=== PATIENT | male | born 1950 | race Caucasian/White ===

== ENCOUNTER 2024-09-14 16:42 | Inpatient (IN) ==
--- NOTE | 2024-09-14 17:00 | Emergency Department Note ---
Impression & Plan GI bleed, SOB (shortness of breath), Pneumonia, COPD exacerbation, Anemia, Vomiting, Rhinovirus infection ED Provider Note NAME: LILIANA PEREZ AGE: 74 SEX: M : 1950 ARRIVES VIA: Ambulance INFORMANT: [Patient][ems] ED PROVIDER(S): [London Rosenberg MD] CHIEF COMPLAINT: Illness HISTORY OF PRESENT ILLNESS: The patient is a 74-year-old male with COPD. The patient states that he has been coughing for about a week. Today, he vomited and had some chills. He states he has not recorded a fever over the last week. He did have some epigastric abdominal pain today prior to vomiting. He presents by ambulance. He received Zofran en route which did help the nausea. He states the epigastric abdominal pain is not present. Patient does have inhalers that he uses for COPD, he does not use oxygen. He states that he has not really noticed shortness of breath, even with exertion. He states his is ill as well and he thinks they have shared the same illness. The patient does have a history of cardiac bypass surgery. He appears to take Eliquis twice daily. PMHx/PSHx/Social Hx: See Below PHYSICAL EXAM: GENERAL: Patient is in no acute distress. He does have some dark dried vomitus around his mouth. HEENT: No acute trauma, normocephalic atraumatic, mucous membranes moist, no nasal congestion. NECK: No stridor, no adenopathy, no meningismus, trachea is midline. LUNGS: Clear to auscultation bilaterally, no wheeze, no rhonchi, breath sounds equal. Breath sounds are diminished bilaterally HEART: Without murmurs gallops or rubs, regular rate and rhythm. Heart tones somewhat distant. ABDOMEN: Soft, nontender, no peritonitis. EXTREMITIES: No cyanosis, full range of motion of all the joints without pain or difficulty. No pedal edema. NEUROLOGIC: Oriented x 3, no acute motor or sensory deficits, no focal weakness. SKIN: No jaundice, no diaphoresis. Rectal: Dark brown stool, heme positive. DIFFERENTIAL DIAGNOSIS: Viral illness, bronchitis, pneumonia, CHF, cardiac ischemia, electrolyte imbalance, bacteremia, GI bleeding, among others. EMERGENCY DEPARTMENT PROCEDURES: MEDICAL DECISION MAKING: There is a moderate leukocytosis, this certainly could be consistent with infection. The patient was anemic. The patient's hemoglobin had dropped 2 or 3 points. I did perform a rectal exam, stool was dark brown and heme positive. There was a normal platelet count. No concerning coagulopathy. VBG did not show any acidosis or CO2 retention. Patient's BUN was elevated consistent with potential upper GI bleeding. There was no renal failure. Lactic acid level was not elevated making severe sepsis less likely. There was no concerning liver enzyme elevation. ECG showed a sinus rhythm, no obvious ischemia. Cardiac enzyme testing x 1 was not consistent with acute cardiac injury. Urinalysis did not show infection. Respiratory bio fire was positive for rhinovirus. Chest x- ray does show a patchy lower lobe pneumonia bilaterally. On exam, patient was borderline hypoxic. He did not appear in acute distress. He was febrile. The patient was given 1 L of IV saline for hydration. He received IV Protonix and IV Solu-Medrol. He was given IV Pepcid, IV cefepime and a DuoNeb. He received IV Tylenol. The patient has rhinovirus and pneumonia which has flare of COPD. Additionally, he is suffering from what I believed to be an upper GI bleed. Admission is clearly warranted. I did speak with GI, the patient is not in need of an emergent GI procedure. I did speak with the patient and family, I spoke with the pillowcase cleaner. The on- call hospitalist was consulted. Prior/Outside records/notes reviewed: Today's EMS notes describing his presentation and transport to this hospital. ECG per my interpretation: Indication was vomiting. The ECG shows a sinus rhythm with a first-degree AV block. PVCs are seen. No acute ST elevation. The rate is 94. QTc is 457. 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 Continuous Cardiac Monitoring per my interpretation: An order was placed for continuous cardiac monitoring. The monitor shows a rate of 94 with sinus rhythm with a first-degree block and PVCs. Imaging/x-ray results per my interpretation: Chest x-ray shows a patchy bilateral lower lung pneumonia. Chronic Medical/Social conditions affecting care: Advanced age, history of COPD. Care/Management discussed with: Case management, the on-call hospitalist. On- call GI-Dr. Robbins Level of care consideration(s): After review of the information above and other included data: --I believe the patient requires escalation of care to admission Critical Care Note: I have personally spent 44 minutes of critical care time in the direct management of this patient. This includes bedside care, interpretation of diagnostic studies, and testing, discussion with consultants, patient, and family members, and other required patient management activities. This 44 minutes is in excess of all separately billable procedures. DISPOSITION: Admission Past Med/Surg History Problem List Sepsis Enterovirus infection History of atrial flutter Rhinovirus infection (Acute) CAD (coronary artery disease), [place] coronary artery stent x1 (2016) Upper GI bleed Vomiting (Acute) Anemia (Acute) COPD exacerbation (Acute) Pneumonia (Acute) SOB (shortness of breath) (Acute) GI bleed (Acute) Right lower lobe pneumonia Wears hearing aid in both ears Phonak L50R disp 02/2023 Does not have health insurance COPD (chronic obstructive pulmonary disease) "Controlled" > follows with [facility] in [place] ([phone]) 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 SNHL, :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 History of tobacco use disorder COPD, group B, by GOLD 2017 classification GI bleed 2019 GERD (gastroesophageal reflux disease) Tinnitus of both ears Periorbital ecchymosis of left eye Encounter for pre-operative examination Cholesteatoma of attic of left ear Perforation of left tympanic membrane Mixed hearing loss, bilateral Medical History Aortic valve disease s/p AVR- 2018 (echo 10/28/20 with normal appearing bioprosthetic aortic valve and normal transvalvular flow velocities and no AI) History of SC (myocardial infarction) 2016 History of kidney stones CKD (chronic kidney disease) High cholesterol Hypertension Surgical History History of mastoidectomy History of AAA (abdominal aortic aneurysm) repair History of esophagogastroduodenoscopy (EGD) History of colonoscopy History of heart artery stent History of cardiac cath S/P AVR (aortic valve replacement) History of cataract extraction History of cholecystectomy History of oral surgery History of appendectomy H/O thoracic aortic aneurysm repair Family History Mother Stroke Father Bone cancer Other Emphysema lung Lung disease No family history of adverse response to anesthesia No family history of bleeding disorder Social History Smoking Status: Never smoker Tobacco Type: Cigarettes Age Started Using Tobacco: 50; Age Quit Using Tobacco: 65; packs per day: 1; Second Hand Exposure: No; Do You Dip or Chew Tobacco: No; Hx Alcohol Use: No Hx Substance Use: No Preferred Language: Kyrgyz Communication Ability: Effective Intake Man Required: No Beliefs That Will Affect Care: Religion Religion Beliefs: [facility] marital status: Current Living Situation: Family Current Living Situation Comment: With Brother//Family current occupational status: employed current occupation: woodworking Feels Safe at Home: Yes Assistive Devices: Denture - Upper, Denture - Lower and Glasses Allergies Allergies Allergy/AdvReac Type Severity Reaction Status Date / Time No Known Drug Allergies Allergy Verified 09/14/24 19:05 Home Meds Home Medications Medication Instructions Recorded Confirmed albuterol sulfate 90 mcg/actuation 2 puff inhalation BID 02/04/20 09/14/24 aerosol inhaler metoprolol succinate 25 mg 25 mg PO HS 02/04/20 09/14/24 tablet,extended release 24 hr aspirin 81 mg chewable tablet 81 mg PO QAM 05/05/21 09/14/24 ([place]ley Chewable Low Dose Aspirin) lisinopril 10 mg tablet 10 mg PO QAM 05/05/21 09/14/24 rosuvastatin 40 mg tablet 40 mg PO HS 04/27/23 09/14/24 sertraline 50 mg tablet 50 mg PO DAILY 04/27/23 09/14/24 apixaban 5 mg tablet (Eliquis) 5 mg PO BID 05/17/24 09/14/24 Previous Rx's Medication Instructions Recorded fluticasone fur. 100 mcg-umeclid 1 inh inhalation DAILY #180 ea 08/23/24 62.5 mcg-vilant 25 mcg inhalat.powder (Trelegy Ellipta) Results & Data (ED) Vital Signs Vital Signs - 24 hr 09/14/24 16:51 09/14/24 17:00 09/14/24 17:01 Temperature 38.3 C H 38.3 C H Temperature Source Oral Oral Pulse Rate 97 H 96 H Pulse Rate [Finger] 97 H Pulse Rate from SpO2 Sensor Pulse Rhythm [Finger] Respiratory Rate 18 25 H 18 Respiratory Effort / Characteristics Non-Labored Spontaneous Non-Labored Spontaneous Respiratory Depth Normal Normal Blood Pressure 150/83 H Blood Pressure [Right Arm] 150/83 H Blood Pressure Mean 105 Blood Pressure Mean [Right Arm] 105 Pulse Oximetry 91 92 91 Oxygen Delivery Method Room Air Room Air Oxygen Flow Rate Sepsis Recent Fever Within 48 Hours Yes Sepsis New/Unexplained Change in Mental Status No Sepsis Action Taken by Nursing No Action Required 09/14/24 17:01 09/14/24 17:04 09/14/24 17:09 Temperature 38.3 C H Temperature Source Oral Pulse Rate 97 H 94 H Pulse Rate [Finger] 97 H Pulse Rate from SpO2 Sensor Pulse Rhythm [Finger] Respiratory Rate 18 18 Respiratory Effort / Characteristics Non-Labored Spontaneous Respiratory Depth Normal Blood Pressure Blood Pressure [Right Arm] 150/83 H Blood Pressure Mean Blood Pressure Mean [Right Arm] 105 Pulse Oximetry 91 92 Oxygen Delivery Method Room Air Nasal Cannula Oxygen Flow Rate 2 Sepsis Recent Fever Within 48 Hours Sepsis New/Unexplained Change in Mental Status Sepsis Action Taken by Nursing 09/14/24 17:15 09/14/24 17:15 09/14/24 17:39 Temperature Temperature Source Pulse Rate 91 H 104 H Pulse Rate [Finger] 90 Pulse Rate from SpO2 Sensor 90 104 H Pulse Rhythm [Finger] Respiratory Rate 18 22 19 Respiratory Effort / Characteristics Non-Labored Spontaneous Respiratory Depth Normal Blood Pressure 128/68 Blood Pressure [Right Arm] 128/68 Blood Pressure Mean 88 Blood Pressure Mean [Right Arm] 88 Pulse Oximetry 94 94 96 Oxygen Delivery Method Nasal Cannula Oxygen Flow Rate 2 Sepsis Recent Fever Within 48 Hours Sepsis New/Unexplained Change in Mental Status Sepsis Action Taken by Nursing 09/14/24 17:48 09/14/24 18:00 09/14/24 19:00 Temperature Temperature Source Pulse Rate 98 H 98 H Pulse Rate [Finger] 99 H Pulse Rate from SpO2 Sensor 98 H 97 H Pulse Rhythm [Finger] Regular Respiratory Rate 18 21 18 Respiratory Effort / Characteristics Non-Labored Spontaneous Respiratory Depth Normal Blood Pressure 106/62 Blood Pressure [Right Arm] 117/60 Blood Pressure Mean 76 Blood Pressure Mean [Right Arm] 79 Pulse Oximetry 92 93 94 Oxygen Delivery Method Room Air Oxygen Flow Rate Sepsis Recent Fever Within 48 Hours Sepsis New/Unexplained Change in Mental Status Sepsis Action Taken by Nursing 09/14/24 20:03 09/14/24 20:19 Temperature 37.2 C Temperature Source Oral Pulse Rate Pulse Rate [Finger] 85 Pulse Rate from SpO2 Sensor Pulse Rhythm [Finger] Respiratory Rate 18 Respiratory Effort / Characteristics Respiratory Depth Blood Pressure Blood Pressure [Right Arm] 123/54 L Blood Pressure Mean Blood Pressure Mean [Right Arm] 77 Pulse Oximetry 95 Oxygen Delivery Method Room Air Oxygen Flow Rate Sepsis Recent Fever Within 48 Hours Sepsis New/Unexplained Change in Mental Status Sepsis Action Taken by [facility] Medications Current Medication List: was personally reviewed by me Laboratory Data Attestation: I reviewed the patient's lab results. 09/14/24 22:58 09/14/24 17:04 Lab Results 09/14/24 09/14/24 09/14/24 Range/Units 17:04 17:40 18:27 WBC 17.05 H (4.8-10.8) K/ul RBC 3.41 L (4.70-6.10) M/uL Hgb 10.4 L (14.0-18.0) g/dl Hct 30.7 L (42.0-52.0) % MCV 90.0 (80.0-100.0) fL MCH 30.5 (25.0-34.0) pg MCHC 33.9 (32.0-36.0) g/dL RDW Std Deviation 44.6 (36.4-46.3) fL RDW Coeff of Tristen 13.8 (11.5-14.5) % Plt Count 297 (130-400) K/uL MPV 10.1 (9.4-12.4) fL Immature Gran % (Auto) 0.6 % Neut % (Auto) 90.8 % Lymph % (Auto) 2.8 % [place] % (Auto) 5.2 % Eos % (Auto) 0.4 % Baso % (Auto) 0.2 % Neut # (Auto) 15.50 H (1.40-6.50) K/uL Lymph # (Auto) 0.47 L (1.20-3.40) K/uL [place] # (Auto) 0.88 H (0.11-0.59) K/uL Eos # (Auto) 0.07 (0.00-0.50) K/uL Baso # (Auto) 0.03 (0.00-0.20) K/uL Immature Gran # (Auto) 0.10 (0.01-0.20) K/uL PT 11.4 (9.0-12.0) Seconds INR 1.1 (0.9-1.1) APTT 33 H (21-31) Seconds PTT Ratio 1.2 VBG pH 7.40 (7.36-7.41) VBG pCO2 39 (38-50) mmHg VBG pO2 54 mmHg VBG HCO3 24 mmol/L VBG O2 Saturation 87.5 % VBG Base Excess -0.5 mEq/L Sodium 137 (136-145) mmol/L Potassium 4.4 (3.5-5.1) mmol/L Chloride 103 (98-107) mmol/L Carbon Dioxide 25 (21-32) mmol/L Anion Gap 9 (3-11) BUN 56 H (6-23) mg/dl Creatinine 1.39 (0.6-1.4) mg/dl Est Cr Clr Drug Dosing 49.6 ml/min eGFR 52.54 BUN/Creatinine Ratio 40.3 H (10-20) Glucose 131 H (70-99(Fasting)) mg/dl Lactate 1.0 (0.4-2.0) mmol/L Calcium 9.7 (8.6-10.3) mg/dl Magnesium 1.9 (1.7-2.4) mg/dl Total Bilirubin 0.8 (0.2-1.0) mg/dl Direct Bilirubin 0.1 (0-0.2) mg/dl AST 17 (13-39) U/L ALT 16 (7-52) U/L Alkaline Phosphatase 45 (34-104) U/L Troponin I High Sens 15.3 (0-20) pg/ml Total Protein 7.3 (6.0-8.3) gm/dl Albumin 4.2 (3.4-5.0) gm/dl Procalcitonin 0.37 (0-0.5) ng/ml Urine Color Urine Appearance (Clear) Urine pH (4.5-7.5) Ur Specific [place] (1.000-1.030) Urine Protein (Negative) Urine Glucose (UA) (Negative) Urine Ketones (Negative) Urine Blood (Negative) Urine Nitrite (Negative) Urine Bilirubin (Negative) Urine Urobilinogen (Negative) Ur Leukocyte Esterase (Negative) Urine WBC (Auto) (0-5) /hpf Urine RBC (Auto) (0-2) /hpf U Hyaline Cast (Auto) (0-2) /lpf U Epithel Cells (Auto) (0-2) /hpf Urine Bacteria (Auto) (None Seen) Nasal Screen MRSA (PCR) (Negative) Adenovirus (PCR) Not Detected (NotDetected) B. pertussis DNA (PCR) Not Detected (NotDetected) B.parapertussis DNA PCR Not Detected (NotDetected) C. pneumoniae DNA (PCR) Not Detected (NotDetected) Coronavirus OC43 (PCR) Not Detected (NotDetected) Coronavirus HKU1 (PCR) Not Detected (NotDetected) Coronavirus 229E (PCR) Not Detected (NotDetected) SARS-CoV-2 (PCR) Not Detected (NotDetected) Coronavirus NL63 (PCR) Not Detected (NotDetected) Human Metapneumovir PCR Not Detected (NotDetected) Influenza Type A (PCR) Not Detected (NotDetected) Influenza Type B (PCR) Not Detected (NotDetected) M. pneumoniae (PCR) Not Detected (NotDetected) Parainfluenza 1 (PCR) Not Detected (NotDetected) Parainfluenza 2 (PCR) Not Detected (NotDetected) Parainfluenza 3 (PCR) Not Detected (NotDetected) Parainfluenza 4 (PCR) Not Detected (NotDetected) RSV (PCR) Not Detected (NotDetected) Entero/Rhino (PCR) DETECTED A (NotDetected) Blood Type A Positive Blood Type Recheck Antibody Screen NEGATIVE Crossmatch See Detail 09/14/24 09/14/24 09/14/24 Range/Units 19:10 19:20 20:40 WBC (4.8-10.8) K/ul RBC (4.70-6.10) M/uL Hgb 10.1 L (14.0-18.0) g/dl Hct 29.5 L (42.0-52.0) % MCV (80.0-100.0) fL MCH (25.0-34.0) pg MCHC (32.0-36.0) g/dL RDW Std Deviation (36.4-46.3) fL RDW Coeff of Tristen (11.5-14.5) % Plt Count (130-400) K/uL MPV (9.4-12.4) fL Immature Gran % (Auto) % Neut % (Auto) % Lymph % (Auto) % [place] % (Auto) % Eos % (Auto) % Baso % (Auto) % Neut # (Auto) (1.40-6.50) K/uL Lymph # (Auto) (1.20-3.40) K/uL [place] # (Auto) (0.11-0.59) K/uL Eos # (Auto) (0.00-0.50) K/uL Baso # (Auto) (0.00-0.20) K/uL Immature Gran # (Auto) (0.01-0.20) K/uL PT (9.0-12.0) Seconds INR (0.9-1.1) APTT (21-31) Seconds PTT Ratio VBG pH (7.36-7.41) VBG pCO2 (38-50) mmHg VBG pO2 mmHg VBG HCO3 mmol/L VBG O2 Saturation % VBG Base Excess mEq/L Sodium (136-145) mmol/L Potassium (3.5-5.1) mmol/L Chloride (98-107) mmol/L Carbon Dioxide (21-32) mmol/L Anion Gap (3-11) BUN (6-23) mg/dl Creatinine (0.6-1.4) mg/dl Est Cr Clr Drug Dosing ml/min eGFR BUN/Creatinine Ratio (10-20) Glucose (70-99(Fasting)) mg/dl Lactate (0.4-2.0) mmol/L Calcium (8.6-10.3) mg/dl Magnesium (1.7-2.4) mg/dl Total Bilirubin (0.2-1.0) mg/dl Direct Bilirubin (0-0.2) mg/dl AST (13-39) U/L ALT (7-52) U/L Alkaline Phosphatase (34-104) U/L Troponin I High Sens (0-20) pg/ml Total Protein (6.0-8.3) gm/dl Albumin (3.4-5.0) gm/dl Procalcitonin (0-0.5) ng/ml Urine Color Yellow Urine Appearance Clear (Clear) Urine pH 5.5 (4.5-7.5) Ur Specific [place] 1.031 H (1.000-1.030) Urine Protein 2+ H (Negative) Urine Glucose (UA) Negative (Negative) Urine Ketones Negative (Negative) Urine Blood Trace H (Negative) Urine Nitrite Negative (Negative) Urine Bilirubin Negative (Negative) Urine Urobilinogen Negative (Negative) Ur Leukocyte Esterase Negative (Negative) Urine WBC (Auto) 0-5 (0-5) /hpf Urine RBC (Auto) 0-2 (0-2) /hpf U Hyaline Cast (Auto) 3-5 H (0-2) /lpf U Epithel Cells (Auto) 0-2 (0-2) /hpf Urine Bacteria (Auto) None Seen (None Seen) Nasal Screen MRSA (PCR) Negative (Negative) Adenovirus (PCR) (NotDetected) B. pertussis DNA (PCR) (NotDetected) B.parapertussis DNA PCR (NotDetected) C. pneumoniae DNA (PCR) (NotDetected) Coronavirus OC43 (PCR) (NotDetected) Coronavirus HKU1 (PCR) (NotDetected) Coronavirus 229E (PCR) (NotDetected) SARS-CoV-2 (PCR) (NotDetected) Coronavirus NL63 (PCR) (NotDetected) Human Metapneumovir PCR (NotDetected) Influenza Type A (PCR) (NotDetected) Influenza Type B (PCR) (NotDetected) M. pneumoniae (PCR) (NotDetected) Parainfluenza 1 (PCR) (NotDetected) Parainfluenza 2 (PCR) (NotDetected) Parainfluenza 3 (PCR) (NotDetected) Parainfluenza 4 (PCR) (NotDetected) RSV (PCR) (NotDetected) Entero/Rhino (PCR) (NotDetected) Blood Type Blood Type Recheck A Positive Antibody Screen Crossmatch Administered Medications Pantoprazole Sodium 40 mg/ (Dextrose) 100 mls @ 20 mls/hr IV Q5H [facility] Stop: 10/14/24 19:29 Last Admin: 09/14/24 19:55 Dose: 8 mg/hr, 20 mls/hr Documented By: TIP Discontinued Medications Albuterol (Albut/Ipratrop 3mg/0.5mg Neb 3 Ml Vial) 3 ml NEB NOW STA; Protocol Stop: 09/14/24 16:55 Last Admin: 09/14/24 17:16 Dose: 3 ml Documented By: TIP Acetaminophen (Ofirmev) 1,000 mg in 100 mls @ 400 mls/hr IV NOW STA Stop: 09/14/24 17:15 Last Infusion: 09/14/24 17:40 Dose: Infused Documented By: Admin: 09/14/24 17:16 Dose: 400 mls/hr Documented By: TIP Cefepime HCl (Maxipime 2000mg) 2,000 mg in 20 mls @ 5 mls/min IV NOW STA Stop: 09/14/24 18:05 Last Admin: 09/14/24 18:07 Dose: 5 mls/min Documented By: YEMI Pantoprazole Sodium 80 mg/ (Dextrose) 120 mls @ 400 mls/hr IV NOW ONE Stop: 09/14/24 18:25 Last Infusion: 09/14/24 19:35 Dose: Infused Documented By: Admin: 09/14/24 19:16 Dose: 400 mls/hr Documented By: TIP Famotidine (Pepcid 20mg Iv Push) 20 mg in 5 mls @ 2.5 mls/min IV NOW STA Stop: 09/14/24 18:09 Last Admin: 09/14/24 18:21 Dose: 2.5 mls/min Documented By: VIKTOR Sodium Chloride (Nss) 1,000 mls @ 999 mls/hr IV .Q1H1M ONE Stop: 09/14/24 19:21 Last Infusion: 09/14/24 20:17 Dose: Infused Documented By: Admin: 09/14/24 19:16 Dose: 999 mls/hr Documented By: TIP Azithromycin 500 mg/ Sodium (Chloride) 255 mls @ 127.5 mls/hr IV NOW ONE Stop: 09/14/24 20:59 Last Infusion: 09/14/24 22:00 Dose: Infused Documented By: Admin: 09/14/24 19:52 Dose: 127.5 mls/hr Documented By: EJJackelyn Lactated Ringer's (Lr) 1,000 mls @ 999 mls/hr IV .Q1H1M ONE Stop: 09/14/24 20:05 Last Admin: 09/14/24 20:02 Dose: 999 mls/hr Documented By: Infusion: 09/14/24 20:02 Dose: Infused Documented By: Admin: 09/14/24 19:53 Dose: 999 mls/hr Documented By: EJV Lactated Ringer's (Lr) 500 mls @ 999 mls/hr IV .Q31M ONE Stop: 09/14/24 19:35 Last Admin: 09/14/24 20:37 Dose: Not Given Documented By: TIP Ioversol (Optiray 320 125ml) 119 ml IV ONCE ONE Stop: 09/14/24 19:34 Last Admin: 09/14/24 19:34 Dose: 119 ml Documented By: MARK Methylprednisolone (Methylprednisolone 125 Mg/2 Ml Vial) 40 mg IV NOW STA Stop: 09/14/24 18:09 Last Admin: 09/14/24 18:21 Dose: 40 mg Documented By: VIKTOR Imaging Data Radiologist's Impression: Chest X-Ray 09/14/24 16:54 EXAM: Radiograph of the Chest 1 View INDICATION: Sepsis. TECHNIQUE: Frontal view of the chest. COMPARISON: 05/22/2024 FINDINGS: Lungs and pleural spaces: There is medial right basilar patchy infiltrate and bilateral basilar mild airway thickening. No pulmonary edema. No pleural effusion or pneumothorax. Heart: Stable cardiomegaly and aortic valve prosthesis. Mediastinum: Normal contour. Bones/joints: No fracture, erosion or dislocation. Soft tissues: No abnormality noted. No radiopaque foreign body noted. Vasculature: Stable aortic contour and arch calcification. Upper abdomen: No abnormality noted. IMPRESSION: Right lower lobe pneumonia, mild atelectasis left base and bilateral basilar bronchitis. ACT 112: Negative or not required by law. Electronically signed by Lisa Coronel 09-14-2024 6:17 PM Chest CTA 09/14/24 19:03 Exam(s): CTA CHEST With Contrast IV Amt: 119ML OPTIRAY 320 EXAM: CT Angiography Chest With Intravenous Contrast CLINICAL HISTORY: Reason for exam: suspected acute AVM bleed. ?active extravasation. TECHNIQUE: Axial computed tomographic angiography images of the chest with intravenous contrast. CTDI is 20.15 mGy and DLP is 761.69 mGy-cm. Automated exposure control was utilized for the study. A dose lowering technique was utilized adhering to the principles of ALARA. MIP reconstructed images were created and reviewed. CONTRAST: Patient received 119ML OPTIRAY 320 of IV contrast COMPARISON: No relevant prior studies available. FINDINGS: Pulmonary arteries: Unremarkable. No evidence of acute pulmonary embolism. Aorta: Previous and ascending aortic repair. No aneurysm or dissection. Other arteries: Mildly enlarged main pulmonary suggesting palmar arterial hypertension. Lungs: Emphysema. Consolidation in the dependent right lower lobe. Pleural-parenchymal scarring at the lung apices. Calcified granulomas stable subpleural pulmonary micronodules in the right lower lobe (series 4, image 193). Stable subpleural pulmonary micronodule in the right upper lobe (series 4, image 145). Given pleural association, no follow- up indicated per Fleischner Society guidelines. Pleural space: Unremarkable. No significant effusion. No pneumothorax. Heart: Previous sternotomy and aortic valve replacement. Mild cardiomegaly. No pericardial effusion. Bones/joints: No acute osseous findings. Soft tissues: Unremarkable. Lymph nodes: Calcified mediastinal and hilar lymph nodes consistent with chronic granulomatous disease. IMPRESSION: 1. No evidence of acute pulmonary embolism. 2. Consolidation in the dependent right lower lobe. Appearance could represent pneumonia or aspiration. Electronically signed by: Will Simmons M.D. 09/14/24 20:55 PM Discharge Plan Visit Data Chief Complaint: Illness Stated Complaint: ILLNESS, COUGHING ED Provider: London Rosenberg Discharge Problem: GI bleed, SOB (shortness of breath), Pneumonia, COPD exacerbation, Anemia, Vomiting, Rhinovirus infection Patient Disposition: Admitted As Inpatient Condition: Serious Discharge Instructions Interventions: ED Discharge Assessment Last Done: 09/14/24 22:35 Discharge Problem: GI bleed Qualifiers: GI bleed type/associated pathology: gastrointestinal hemorrhage with hematemesis Qualified Code(s): K92.0 - Hematemesis Pneumonia Qualifiers: Pneumonia type: due to unspecified organism Laterality: bilateral Lung location: lower lobe of lung Qualified Code(s): J18.9 - Pneumonia, unspecified organism Anemia Qualifiers: Anemia type: other cause Other causes of anemia: acute posthemorrhagic Q ualified Code(s): D62 - Acute posthemorrhagic anemia Vomiting Qualifiers: Vomiting type: hematemesis Nausea presence: with nausea Qualified Code(s): K 92.0 - Hematemesis
[2024-09-14 17:16] LABS: Base Excess VBG -0.5 mEq/L; HCO3 VBG 24 mmol/L; Oxygen Saturation VBG 87.5 %; PCO2 VBG 39 mmHg (38-50); PO2 VBG 54 mmHg
[2024-09-14] MEDS: ALBUT/IPRATROP 3MG/0.5MG NEB 3 ML VIAL NEB STA (17:16)
[2024-09-14] MEDS: ACETAMINOPHEN 1,000 MG/100 ML VIAL IV STA (17:16)
[2024-09-14 17:19] LABS: Hematocrit (blood only) 30.7 % (42.0-52.0); Hemoglobin 10.4 g/dl (14.0-18.0); Mean Corpuscular Hemoglobin 30.5 pg (25.0-34.0); Mean Corpuscular Hgb Conc 33.9 g/dL (32.0-36.0); Mean Platelet Volume 10.1 fL (9.4-12.4); Platelet Count 297 K/uL (130-400); RDW Coefficient of Variation 13.8 % (11.5-14.5); RDW Standard Deviation 44.6 fL (36.4-46.3); Red Blood Count 3.41 M/uL (4.70-6.10); White Blood Count 17.05 K/ul (4.8-10.8)
[2024-09-14 17:35] LABS: Basophils # (auto) 0.03 K/uL (0.00-0.20); Basophils % (auto) 0.2 %; Eosinophils # (auto) 0.07 K/uL (0.00-0.50); Eosinophils % (auto) 0.4 %; Immature Granulocytes % (auto) 0.6 %; Lymphocytes # (auto) 0.47 K/uL (1.20-3.40); Lymphocytes % (auto) 2.8 %; Monocytes # (auto) 0.88 K/uL (0.11-0.59); Monocytes % (auto) 5.2 %; Neutrophils % (auto) 90.8 %
[2024-09-14 17:37] LABS: Albumin Level 4.2 gm/dl (3.4-5.0); BUN Creatinine Ratio 40.3 (10-20); Bilirubin Direct 0.1 mg/dl (0-0.2); Bilirubin,Total 0.8 mg/dl (0.2-1.0); Calcium 9.7 mg/dl (8.6-10.3); Creatinine Clr Calc Pharmacy 49.6 ml/min; Magnesium 1.9 mg/dl (1.7-2.4); Potassium 4.4 mmol/L (3.5-5.1); Total Protein 7.3 gm/dl (6.0-8.3)
[2024-09-14 17:44] LABS: Troponin I High Sensitivity 15.3 pg/ml (0-20)
[2024-09-14 17:48] LABS: INR 1.1 (0.9-1.1); Partial Thromboplastin Ratio 1.2; Partial Thromboplastin Time 33 Seconds (21-31); Prothrombin Time 11.4 Seconds (9.0-12.0)
[2024-09-14] MEDS ORDERED: CEFEPIME 2,000 MG in SYRINGE 7.5 ML IV STA (17:55)
[2024-09-14] MEDS: CEFEPIME 2000MG 2,000 MG/20 ML SYR IV STA (18:07)
--- NOTE | 2024-09-14 18:17 | XRay Report ---
EXAM: Radiograph of the Chest 1 View INDICATION: Sepsis. TECHNIQUE: Frontal view of the chest. COMPARISON: 05/22/2024 FINDINGS: Lungs and pleural spaces: There is medial right basilar patchy infiltrate and bilateral basilar mild airway thickening. No pulmonary edema. No pleural effusion or pneumothorax. Heart: Stable cardiomegaly and aortic valve prosthesis. Mediastinum: Normal contour. Bones/joints: No fracture, erosion or dislocation. Soft tissues: No abnormality noted. No radiopaque foreign body noted. Vasculature: Stable aortic contour and arch calcification. Upper abdomen: No abnormality noted. IMPRESSION: Right lower lobe pneumonia, mild atelectasis left base and bilateral basilar bronchitis. ACT 112: Negative or not required by law. Electronically signed by Lisa Coronel 09-14-2024 6:17 PM
[2024-09-14] MEDS: FAMOTIDINE 20MG IV PUSH 20 MG/5 ML SYR IV STA (18:21)
[2024-09-14] MEDS: methylPREDNISolone 125 MG/2 ML VIAL IV STA (18:21)
--- NOTE | 2024-09-14 18:31 | History & Physical Report ---
Date of Service September 14, 2024 Assessment & Plan (1) Upper GI bleed: Plan: Signed out to overnight team. Patient has history of GI bleed requiring transfer to [place] for a push endoscopy. Hx of AVM. CT angiogram ordered, pending Patient reports coffee ground emesis on the morning of 08/14 Fecal occult stool (+) on arrival BUN/creatinine ratio >30 on arrival Strict n.p.o.; hold p.o. medications except aspirin H/o heart stent Hgb 10.4 on arrival (most recent 13.0 in Nov 2022) Blood consent form obtained in the ED 2 units pRBCs ordered, held Protonix 80 mg IV bolus given in ED Continue Protonix drip Trend H&H q8h (2) Sepsis: Plan: Pulmonary source Blood cultures, lactate, procalcitonin drawn Antibiotics (as above) (3) Right lower lobe pneumonia: Plan: Leukocytosis at 17.05 with initial predominance; febrile at 38.3 C CXR on arrival revealed an LLL pneumonia Cefepime + azithromycin Supplemental oxygen as needed to maintain SpO2 >94% Continuous pulse oximetry (4) CAD (coronary artery disease), [place] coronary artery: Plan: Stent x 1 in 2015 Continue aspirin in the a.m. (5) History of atrial flutter: Plan: Hold Eliquis (6) Rhinovirus infection: Plan: (+) Entero-/rhinovirus on arrival Supportive care Standard isolation precautions (7) Enterovirus infection: (8) History of tobacco use disorder: Plan Disposition: Admission is pending CT angiogram Full code N.p.o. VTE PPx: Hold Eliquis History of Present Illness Chief Complaint: Productive cough Primary Care Provider: Megan Adorno Robbin is a 74-year-old male with PMH of atrial flutter (on Eliquis), GERD, COPD, GI bleed, and tobacco use disorder. He presented for productive cough, and acute onset of coffee-ground emesis on 09/14. Patient also reports that he developed shaking and chills x 1 hour. He has had black/bloody bowel movements since intermittently since he was in [place]. When asked when he was in [place], he reports it was May, however believes it may have been July. When asked why he was in [place], he reports "to see how long I am going to live". He reports he had a colonoscopy in [place], but is unsure what it showed. He is unsure if he had an endoscopy in [place]. Patient reports that he took his regular morning medicines today including his aspirin and Eliquis. He takes Eliquis for history of atrial flutter. No history of A-fib to his knowledge. No history of blood clots. Patient's stent was placed in 2017. He believes he does have a history of blood transfusions when he had open heart surgery several years back. He does not wear supplemental oxygen at baseline; no CPAP at night. Patient reports he has been taking [id number] medications for his cough; NyQuil. He is also taking lozenges for his sore throat. He reports no known medication allergies. Patient is febrile at 38.3 C at time of admission; SpO2 93% on 2 L NC. ED course: NSS 1000 mL IV DuoNeb 3 mL Acetaminophen 1000 mg IV Cefepime 2000 mg IV Pantoprazole 80 mg IV bolus Famotidine 20 mg IV Solu-Medrol 4 mg IV ROS: Patient endorses fever, chills, shaking, productive cough (yellow), dark/tarry stool, nausea/vomiting x 1 this morning (coffee-ground emesis), or diarrhea. Patient denies dizziness, lightheadedness, headaches, chest pain, chest palpitations, pleuritic CP, SOB at rest, WEST, hemoptysis, abdominal pain, blood in urine, or burning with urination. Please see Dr. Esteves's attestation for any changes to treatment plan. Allergies Allergy/AdvReac Type Severity Reaction Status Date / Time No Known Drug Allergies Allergy Verified 09/14/24 19:05 Home Medications Medication Instructions Recorded Confirmed Type albuterol sulfate 90 mcg/actuation 2 puff inhalation BID 02/04/20 09/14/24 History aerosol inhaler metoprolol succinate 25 mg 25 mg PO HS 02/04/20 09/14/24 History tablet,extended release 24 hr aspirin 81 mg chewable tablet 81 mg PO QAM 05/05/21 09/14/24 History (Ashley Chewable Low Dose Aspirin) lisinopril 10 mg tablet 10 mg PO QAM 05/05/21 09/14/24 History rosuvastatin 40 mg tablet 40 mg PO HS 04/27/23 09/14/24 History sertraline 50 mg tablet 50 mg PO DAILY 04/27/23 09/14/24 History apixaban 5 mg tablet (Eliquis) 5 mg PO BID 05/17/24 09/14/24 History fluticasone fur. 100 mcg-umeclid 1 inh inhalation DAILY #180 ea 08/23/24 09/14/24 Rx 62.5 mcg-vilant 25 mcg inhalat.powder (Trelegy Ellipta) Past Med/Surg History Problem List Sepsis Enterovirus infection History of atrial flutter Rhinovirus infection (Acute) CAD (coronary artery disease), [place] coronary artery stent x1 (2016) Upper GI bleed Vomiting (Acute) Anemia (Acute) COPD exacerbation (Acute) Pneumonia (Acute) SOB (shortness of breath) (Acute) GI bleed (Acute) Right lower lobe pneumonia Wears hearing aid in both ears Phonak L50R disp 02/2023 Does not have health insurance COPD (chronic obstructive pulmonary disease) "Controlled" > follows with [facility] in [place] ([phone]) 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 SNHL, :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 History of tobacco use disorder COPD, group B, by GOLD 2017 classification GI bleed 2019 GERD (gastroesophageal reflux disease) Tinnitus of both ears Periorbital ecchymosis of left eye Encounter for pre-operative examination Cholesteatoma of attic of left ear Perforation of left tympanic membrane Mixed hearing loss, bilateral Medical History Aortic valve disease s/p AVR- 2018 (echo 10/28/20 with normal appearing bioprosthetic aortic valve and normal transvalvular flow velocities and no AI) History of IL (myocardial infarction) 2016 History of kidney stones CKD (chronic kidney disease) High cholesterol Hypertension Surgical History History of mastoidectomy History of AAA (abdominal aortic aneurysm) repair History of esophagogastroduodenoscopy (EGD) History of colonoscopy History of heart artery stent History of cardiac cath S/P AVR (aortic valve replacement) History of cataract extraction History of cholecystectomy History of oral surgery History of appendectomy H/O thoracic aortic aneurysm repair Family History Mother Stroke Father Bone cancer Other Emphysema lung Lung disease No family history of adverse response to anesthesia No family history of bleeding disorder Social History Smoking Status: Never smoker Tobacco Type: Cigarettes Age Started Using Tobacco: 50; Age Quit Using Tobacco: 65; packs per day: 1; Second Hand Exposure: No; Do You Dip or Chew Tobacco: No; Hx Alcohol Use: No Hx Substance Use: No Preferred Language: Luxembourgish Communication Ability: Effective Scallop Shucker Required: No Beliefs That Will Affect Care: Mosque Mosque Beliefs: Hoahaoism marital status: Current Living Situation: Spouse Current Living Situation Comment: With Brother//Family current occupational status: employed current occupation: [employer] Other Information That Helps Us Care for You: No Feels Safe at Home: Yes Safety Concerns: Feels Safe At This Time Assistive Devices: Denture - Upper, Denture - Lower and Glasses Review of Systems Review of Systems: See HPI above Physical Exam Physical Exam: General: Mild respiratory distress; non-toxic appearing; well-nourished; cooperative; SpO2 93% on 2L NC HEENT: normocephalic, atraumatic; no scleral icterus; PERRLA w/ EOMs intact; vision and hearing grossly intact Neck: supple; no lymphadenopathy; trachea midline Skin: Hematoma noted on the anterior aspect of the left ankle; warm, dry without signs of tenting; no cyanosis; no rashes, bruising, lesions, or erythema noted CV: chest wall NTP; RR, tachycardic around 100 bpm; S1/S2 normal; 2/6 systolic ejection murmur auscultated at the second ICS MCL; pulses intact and symmetric at radial, DP, and PT Lungs: Mild respiratory distress; symmetrical chest wall expansion; inspiratory rhonchi auscultated across all lung ba bilaterally (R>L) ABD: Soft, NTP in all 4 quadrants; BS present; no rebound/guarding; no distention; no rashes or bruising noted on the abdomen or flanks bilaterally MSK: no tics or fasciculations; no edema noted in the LEs b/l, nonerythematous Neuro: A&Ox3; normal mood and affect; fluent speech; no focal deficits; sensation grossly intact in the LEs b/l Results & Data Results & Data Vital Signs (Past 12 Hours) Vital Signs Temp Pulse Pulse Resp BP BP Pulse Ox 09/14/24 18:00 98 H 21 106/62 93 09/14/24 17:48 98 H 18 92 09/14/24 17:39 104 H 19 96 09/14/24 17:15 91 H 22 128/68 94 09/14/24 17:15 90 18 128/68 94 09/14/24 17:09 38.3 C H 97 H 18 150/83 H 92 09/14/24 17:04 94 H 09/14/24 17:01 97 H 18 91 09/14/24 17:01 38.3 C H 97 H 18 150/83 H 91 09/14/24 17:00 96 H 25 H 92 09/14/24 16:51 38.3 C H 97 H 18 150/83 H 91 O2 Del Method O2 Flow Rate 09/14/24 18:00 09/14/24 17:48 09/14/24 17:39 09/14/24 17:15 09/14/24 17:15 Nasal Cannula 2 09/14/24 17:09 Nasal Cannula 2 09/14/24 17:04 09/14/24 17:01 Room Air 09/14/24 17:01 Room Air 09/14/24 17:00 09/14/24 16:51 Room Air Laboratory Results Abnormal lab results 09/14/24 Range/Units 17:04 WBC 17.05 H (4.8-10.8) K/ul RBC 3.41 L (4.70-6.10) M/uL Hgb 10.4 L (14.0-18.0) g/dl Hct 30.7 L (42.0-52.0) % Neut # (Auto) 15.50 H (1.40-6.50) K/uL Lymph # (Auto) 0.47 L (1.20-3.40) K/uL Navarro # (Auto) 0.88 H (0.11-0.59) K/uL APTT 33 H (21-31) Seconds BUN 56 H (6-23) mg/dl BUN/Creatinine Ratio 40.3 H (10-20) Glucose 131 H (70-99(Fasting)) mg/dl Diagnostic Findings Chest X-Ray 09/14/24 16:54 EXAM: Radiograph of the Chest 1 View INDICATION: Sepsis. TECHNIQUE: Frontal view of the chest. COMPARISON: 05/22/2024 FINDINGS: Lungs and pleural spaces: There is medial right basilar patchy infiltrate and bilateral basilar mild airway thickening. No pulmonary edema. No pleural effusion or pneumothorax. Heart: Stable cardiomegaly and aortic valve prosthesis. Mediastinum: Normal contour. Bones/joints: No fracture, erosion or dislocation. Soft tissues: No abnormality noted. No radiopaque foreign body noted. Vasculature: Stable aortic contour and arch calcification. Upper abdomen: No abnormality noted. IMPRESSION: Right lower lobe pneumonia, mild atelectasis left base and bilateral basilar bronchitis. ACT 112: Negative or not required by law. Electronically signed by Lisa Coronel 09-14-2024 6:17 PM ECG Additional Comments: ECG revealed sinus rhythm at 94 bpm with first-degree AV block with PACs; QTc 457 Similar to prior EKG in April 2022 No A-fib noted on prior EKGs Code Status & VTE Plan Code Status Full code (discussed with both patient, patient's , and Dr. Esteves at the bedside) VTE Prophylaxis Plan VTE Prophylaxis will be ordered: Yes Supervising Physician Co-Signing Physician Notes Robbin Chery is a 74-year-old male with a past medical history of COPD, CAD, anticoagulation with apixaban who presents to the hospital for evaluation of fever, chills, cough and suspected pneumonia. Patient has had some nausea and vomiting and has black appearing emesis on his lips. He has not had coby rectal bleeding or melena but does have Hemoccult positive stool and an elevated BUN suggestive of upper GI bleeding. There is no abdominal tenderness. Patient was seen at the bedside. Limited history available in the system h owever patient is seen by [facility] providers, records pending. Patient reportedly with a history of A-fib, a flutter on anticoagulation, small bowel AVM, CKD, COPD, COPD with tobacco abuse in remission, abdominal [place] [facility] [place] 1 [place]EN[place] and no history of heart failure, and history of cholecystectomy. He reports he does travel periodically to [place] for medical treatments "to stay healthy ". He does have a history of visual loss in his left eye. He reports that there was some concern for his dark bowel movement so he had a colonoscopy in [place] but does not know the results of this, does not think he had any stomach problems. He reports in the past he did have to have a endoscopy extended deeper into the intestine which burned off a bleeding spot consistent with small bowel AVM treated by push endoscopy with cauterization. Patient is tender at the epigastrium on exam. He is tachycardic, borderline hypotensive additionally he has had fever chills and cough for 1 day with right lower lobe pneumonia seen on CT. Medical history per chart review: A-fib/a flutter on anticoagulation Small bowel AVM CKD COPD Improving/COPD with tobacco abuse in remission [place] [facility] [place] 1 [place] Patient is blind in his left eye Community-acquired pneumonia Leukocytosis of 17.05 - Rhino/enterovirus Procalcitonin borderline BioFire pending Chest x-ray with right lower lobe pneumonia Patient is borderline normotensive, tachycardic, febrile on admission Meet sepsis criteria on admission. Patient has been ordered 1 L of IV fluids. Additional 1500 cc of fluids ordered to meet at least ideal body weight goal of 1427 cc, pt seen at [facility] fo critical IV fluid shortage however PO defererd due to UGIB. MRSA nares pending EKG with QTc 457. Sinus. Lactate not elevated Upper GI bleed - On hx patient with hx of ABM bleeding. CTA-A/P ordered to eval for extravasation/?AVM, this war erroneously ordered at CTA Chest. Due to dye load, stable H&H on recheck, and clinical improvement following fluids without ongoing bleeding repeat CT deferred. With small mount of black material in emesis, and no coby lower GI bleed but with Hemoccult positive stool History of AVMs as noted Continue PPI gtt., was ordered 80 mg load and gtt. on admission - GI consulted 2 units ordered for match for acute bleeding if needed. Does not meet threshold triggered goals at time of admission although has had a 3 point drop and is now s/p fluid resuscitation. Stat H&H ordered to reassess for hemoglobin stability. PG Care Time/CCT Total # of Minutes Spent Total Time Spent with Patient: Total time spent is greater than 50% in coordination of care (as documented) at patient's floor/unit and/or counseling patient: [place] [address] INT INP/OBS CARE MIN Patient Type Established History Comprehensive Exam Comprehensive Medical Decision Making High Complexity Diagnoses Upper GI bleed K92.2 Sepsis A41.9 Right lower lobe pneumonia J18.9 CAD (coronary artery disease), [place] coronary artery I25.10 History of atrial flutter Z86.79 Rhinovirus infection B34.8 Enterovirus infection B34.1 History of tobacco use disorder Z87.891
[2024-09-14 18:37] LABS: Adenovirus PCR Not Detected (NotDetected); Bordetella parapertussis PCR Not Detected (NotDetected); Bordetella pertussis PCR Not Detected (NotDetected); Chlamydia pneumoniae PCR Not Detected (NotDetected); Coronavirus 229E PCR Not Detected (NotDetected); Coronavirus CoV-2 (COVID19)PCR Not Detected (NotDetected); Coronavirus HKU1 PCR Not Detected (NotDetected); Coronavirus NL63 PCR Not Detected (NotDetected); Coronavirus OC43PCR Not Detected (NotDetected); Human Metapneumovirus PCR Not Detected (NotDetected); Influenza A PCR Not Detected (NotDetected); Influenza B PCR Not Detected (NotDetected); Mycoplasma pneumoniae PCR Not Detected (NotDetected); Parainfluenza Virus 1 PCR Not Detected (NotDetected); Parainfluenza Virus 2 PCR Not Detected (NotDetected); Parainfluenza Virus 3 PCR Not Detected (NotDetected); Parainfluenza Virus 4 PCR Not Detected (NotDetected); Respiratory Syncytial VirusPCR Not Detected (NotDetected); Rhinovirus/Enterovirus PCR DETECTED (NotDetected)
[2024-09-14] MEDS ORDERED: AZITHROMYCIN 500 MG VIAL IV SCH (18:45)
[2024-09-14] MEDS ORDERED: SODIUM CHLORIDE 0.9% 50 ML IV PRN ×2 (19:05→22:44)
[2024-09-14] MEDS ORDERED: SODIUM CHLORIDE 0.9% 100 ML IV PRN ×2 (19:05→22:44)
[2024-09-14] MEDS: SODIUM CHLORIDE 0.9% 1,000 ML IV ONE (19:16)
[2024-09-14] MEDS: PANTOprazole 80 MG in DEXTROSE 5% 100 ML IV ONE (19:16)
[2024-09-14] MEDS: OPTIRAY 320 125ml IV ONE (19:34)
[2024-09-14 19:45] LABS: Hematocrit (blood only) 29.5 % (42.0-52.0); Hemoglobin 10.1 g/dl (14.0-18.0)
[2024-09-14] MEDS: AZITHROMYCIN 500 MG in SODIUM CHLORIDE 0.9% 250 ML IV ONE (19:52)
[2024-09-14] MEDS: LACTATED RINGER'S 1,000 ML IV ONE (19:53)
[2024-09-14] MEDS: PANTOprazole 40 MG in DEXTROSE 5% MINI-B 100 ML IV SCH (19:55)
--- OUTSIDE RECORDS SUMMARY | 2024-09-14 20:01 | External Medical Summary | Continuity of Care Document ---
Author Name Unknown Organization [address] [place] [id number] Care Team Providers Care Furniture And Bedding Inspector Name Role Phone Megan Adorno Primary Care Physician [phone] Encounter [facility] [id number] Date(s): 07/11/24 - 07/11/24 [facility] 1849 [facility] 207 [facility] Medical [facility] 1850 [facility], [address] [address] [phone] Encounter Diagnosis Blind left eye(Discharge Diagnosis) - 07/11/24 Discharge Disposition: Home or Self Care Attending Physician: MD Escobedo Christopher Allergies, Adverse Reactions, Alerts No Known Allergies Immunizations Given and Recorded Vaccine Date Status Refusal Reason influenza virus vaccine, inactivated 06/24/17 Tim rded Medications acetaminophen 500 mg oral tablet Start: 02/28/24 4:02:00 PM EDT, 2 tab, PO, q6h, PRN: fever/mild pain (1-3) Start Date: 02/28/24 Status: Ordered Albuterol (Eqv-ProAir HFA) 90 mcg/inh inhalation aerosol Start: 06/07/24 9:51:00 AM EDT, 2 puff, inhaled, q6h, Disp# 8.5 unknown unit, Refills: 0, WITH SPACER CHAMBER., Pharmacy: [id number] Start Date: 06/07/24 Status: Ordered aspirin 81 mg oral delayed release tablet Start: 11/30/17 12:24:00 PM EST, 1 tab, PO, Daily Start Date: 11/30/17 Status: Ordered budesonide-formoterol 160 mcg-4.5 mcg/inh inhalation aerosol Start: 05/15/24 11:35:00 AM EDT, 2 puff, inhaled, bid, Disp# 10.2 g, Refills: 1, AFTER USE., Pharmacy: [facility] Start Date: 05/15/24 Status: Ordered chlorthalidone 25 mg oral tablet Start: 02/23/24 3:03:00 PM EDT, 1 tab, PO, q48h, Disp# 45 tab, Refills: 0, Pharmacy: [facility] [id number] Start Date: 02/23/24 Status: Ordered Eliquis 5 mg oral tablet Start: 04/26/24 2:28:00 PM EDT, 1 tab, PO, bid, Disp# 180 tab, Refills: 3, Pharmacy: [facility] [id number] Start Date: 04/26/24 Status: Ordered lisinopril 20 mg oral tablet Start: 07/11/24 11:13:00 AM EDT Start Date: 07/11/24 Status: Ordered magnesium oxide Start: 02/28/24 11:10:00 AM EDT, Daily Start Date: 02/28/24 Status: Ordered Metoprolol Succinate ER 25 mg oral tablet, extended release Start: 04/26/24 11:15:00 AM EDT, 1 tab, PO, Daily, Disp# 90 tab, Refills: 3, do not crush or chew, Pharmacy: [facility] [id number] Start Date: 04/26/24 Status: Ordered Nitrostat 0.4 mg sublingual tablet Start: 05/20/22 10:05:00 AM EDT, 1 tab, SL, q5min, Disp# 100 tab, Refills: 1, PRN: as needed for chest pain, [id number] Start Date: 05/20/22 Stop Date: 07/19/22 Status: Ordered rosuvastatin 40 mg oral tablet Start: 06/07/24 9:51:00 AM EDT, 1 tab, PO, qhs, Disp# 90 tab, Refills: 0, Pharmacy: [facility] [id number] Start Date: 06/07/24 Status: Ordered sertraline 50 mg oral tablet Start: 02/26/24 11:55:00 AM EDT, 1 tab, PO, Daily, Disp# 90 tab, Refills: 0, Pharmacy: [facility] [id number] Start Date: 02/26/24 Status: Ordered Trelegy Ellipta 100 mcg-62.5 mcg-25 mcg/inh inhalation powder Start: 07/11/24 11:13:00 AM EDT Start Date: 07/11/24 Status: Ordered Mental Status 07/11/24 Barriers to Learning one year None evide nt Mandatory Health Literacy Documentation Yes Health Literacy Communication Barriers N ever Primary Language Rwandan Problem List Condition Confirmation Course Effective Dates Status H ealth Status Informant AVM (arteriovenous malformation) of small bowel, acquired Confirmed Active COPD exacerbation Confirmed Active Anxiety Confirmed Active Afib Confirmed Active Afib Confirmed Active Atrial flutter Confirmed Active Benign essential HTN Confirmed Active Centrilobular emphysema Confirmed Active Cholesteatoma of attic, left ear Confirmed Active Chronic colitis 1 Confirmed Active CKD (chronic kidney disease) Confirmed Active Conductive hearing loss Confirmed Active CAD (coronary artery disease) Confirmed Active Dupuytren's disease Confirmed Active Former smoker Confirmed Active S/P ascending aortic aneurysm repair Confirmed Active History of detached retina repair Confirmed Active History of ST elevation myocardial infarction (STEMI) Confirmed Active S/P AVR (aortic valve replacement) Confirmed Active History of kidney stones Confirmed Active History of CVA in adulthood Confirmed Active History of GI bleed Confirmed Active History of right coronary artery stent placement Confirmed Active S/P drug eluting coronary stent placement Confirmed Active S/P AAA repair Confirmed Active Nodule of lower lobe of left lung Confirmed Active Mass of left side of neck Confirmed Active Perforation of left tympanic membrane Confirmed Active Emphysema/COPD Confirmed Active Hearing loss, sensorineural Confirmed Active Tubular adenoma of colon Confirmed Active 1noted on colonoscopy in Oct 2020 Diagnosis Diagnosis Type Effective Dates Health Status Cl inical Service Informant Blind left eye Discharge Diagnosis 07/11/24 Non-Specified Procedures Procedure Date Related Diagnosis Body Site Status Chest X-ray 1 05/12/[address] angiography of chest with contrast 2 05/12/[address] of lung screening (low dose) 3 02/23/21 Completed Colonoscopy 4, 5 11/10/20 Complete d X-ray of right knee 6 06/24/[address] Low dose CT of chest without contrast 7 12/11/19 Completed Left Knee X-ray 8 10/20/18 Complet ed AAA - Repair of abdominal ao rtic aneurysm using straight graft 07/01/18 Co mpleted Echocardiogram 9 06/07/[address] Head wo contrast 10 06/06/[address] Angiogram Head 11 06/05/[address] Angiogram Neck 12 06/05/18 Comp leted MR Brain wo contrast 13 06/05/18 C ompleted Small bowel enteroscopy 14 2/1/18 Completed Upper GI endoscopy 15 11/21/17 Com pleted Echocardiogram 16 11/10/[address] 17 04/06/17 Completed Drug eluting stent 07/01/16 Comple aramis Heart valve replacement 07/01/16 C ompleted Colonoscopy 18 04/30/15 Completed X-ray Obstruction Series 19 12/31/14 Completed Chest x-ray 20 12/29/14 Completed Cholecystectomy 12/29/[address] Abdomen Pelvis w Contrast 21 12/28/14 Completed 1impression: No acute chest disease 2mpression: 1 no evidence for an aortic dissection 2. Postoperative changes as described 3. Mild cardiomegaly unchanged 4 stable subcentimeter pulmonary nodules within the right lung 5. Emphsyema 6. A small Zenkers diverticulum is noted 3Impression: 1. Stable subcentimeter pulmonary nodules. Continue yearly annual screening. 2. Bronchial wall thickening and mucous plugging. 4Pathology results showed 1 tubular adenoma and random colon biopsies showed moderate coloitis/inflammation of the colon. Repeat in 5 years. 5Colo to cecum, 4 mm cecal polyp cold forceps removed, random AC and sigmoid colon bx taken, sigmoiddiverticulosis, redundant colon 61. No acute fracture or joint effusion of the right knee. 2. Preserved joint spaces. Minimal patellofemoral compartment osteophytosis. 71. No focal or suspicious pulmonary nodule. Continue annual lung cancer screening. 2. Moderate paraseptal and mild to moderate centrilobular emphysema. 3. Segmental and subsegmental endobronchial debris in the right lower lobe most likely related to mucous plugging or less likely aspiration. Attention on follow-up. No associated peripheral infiltrate. 4. Mild to moderate coronary artery calcification. 5. Evidence of old granulomatous disease. 6. Diffusely sclerotic bone marrow may suggest an underlying metabolic abnormality such as hyperthyroidism or less likely a diffuse marrow replacement process such as myelofibrosis or lymphoproliferative disease among many other etiologies. Overall Lung RADS Category: 2 - Benign appearance or behavior - Nodules with a very low likelihood of becoming a clinically active cancer due to size or lack of growth. Continue annual screening. 8Anterior soft tissue defect as described 9LV ejection fraction is 50-55% There is evidence for LV regional wall motion abnormality Grade II diastolic dysfunction Left atrial size is mildly increased Findings suggest normal AVR function Microcavitation study was negative 10No evidence for delayed hemorrhage or developing large vascular territory infarct. Chronic small vessel ischemic changes again noted. 11Multifocal atherosclerotic disease involving the petrous segment of the LEFT internal carotid artery as well as the cisternal segment of the LEFT vertebral artery. There does not appear to be vascular occlusion or hemodynamically significant stenosis. 121. Multifocal atherosclerotic disease in both common and internal carotid arteries without evidenceof a hemodynamically significant stenosis 2. LEFT parotid mass with nonspecific features may represent a benign or malignant parotid tumor. ultrasound-guided FNA could be performed if clinically indicated. 131. Probable chronic small vessel ischemic changes. No evidence of a recent infarct. 2. Multiple areas of blooming artifact on susceptibility weighted imaging suggestive of amyloid angiopathy. 14Normal esophagus Normal stomach Normal examined duodenum The examined portion of the jejunum was normal No specimens collected 15Normal esophagus Normal stomach Normal examined duodenum No specimens collected 16Septal wall motion abnormality is consistent with post-operative status. Global systolic LV function is normal Est LV Ejection Fraction is 60-65% LV wall thickness is severely increased Left atrial size is mildly increased s/p Bentall (25 tissue valve, 30 graft for ascending and hemiarch) Findings suggest normal AVR function Small pericardial effusion 17Pulmonary emphysema. Stable RIGHT lower lobe and LEFT upper lobe pulmonary nodules. Calcified granulomata are noted as well. Follow-up CT chest is advised in 6-12 months 18One 3 mm polyp in the sigmoid colon. Resected and retrieved. The examination was otherwise normal on direct and retroflexion views. 19No evidence of small bowel obstruction. No free air. Increased left basilar atelectasis 20Hyperinflated chest consistent with COPD 21Pericholecystic edema. Ultrasound may be of value to look for gallstones. No evidence of diverticulitis or free fluid. Vital Signs Most recent to oldest [Reference Range]: 1 Temperature [36.5-37.9 DegC] 36.5 DegC (07/11/24 11:18 AM) Heart Rate 84 bpm (07/11/24 11:18 AM) Respiratory Rate 16 br/min (07/11/24 11:18 AM) Blood Pressure 140/86mmHg (07/11/24 11:18 AM) Cuff Pulse Pressure 54 mmHg (07/11/24 11:18 AM) Social History Social History Type Response Tobacco Former smoker, Cigar ettes, Cigars, Pipe, 48 year(s). 1 Smoking Status Never smoked cigaret yamilet Sex Male Sex Representation Male (finding) 1Quit 2015 Patient Care team information Care Team Personnel Name: FAHEEM Shaffer Janet Griffith Position: Nurse Pract - Pulmonary Med Member Role: Lifetime Relationship Address: [address] [place] [phone] Name: MD Kyree, Megan Position: Physician - Family Med Member Role: Primary Care Provider Address: [address] [place] [address] Care Team Related Persons Name: JENNIFER PEREZ
--- OUTSIDE RECORDS SUMMARY | 2024-09-14 20:01 | External Medical Summary | Continuity of Care Document ---
Author Name Unknown Organization [facility] [address] [facility] Address [address], [place] [id number] Care Team Providers Care Conference Coordinator Name Role Phone Niki Adornoandrew Primary Care Physician [phone] [id number] Date[facility]s): 07/25/24 - 07/25/24 [facility] [address], [address] [place] [address] [phone] Encounter Diagnosis Atrial fibrillation(Discharge Diagnosis) - 07/25/24 Atrial flutter(Discharge Diagnosis) - 07/25/24 Discharge Disposition: Home or Self Care Attending Physician: MD Cyndee, Marichuy Al Referring Physician: DO Elias Jason D Allergies, Adverse Reactions, Alerts No Known Allergies [...] unit, Refills: 0, WITH SPACER CHAMBER., Pharmacy: [id number] Start Date: 06/07/24 Status: Ordered aspirin 81 mg oral delayed release tablet Start: 11/30/17 12:24:00 PM EST, 1 tab, PO, Daily Start Date: 11/30/17 Status: Ordered budesonide-formoterol 160 mcg-4.5 mcg/inh inhalation aerosol Start: 05/15/24 11:35:00 AM EDT, 2 puff, inhaled, bid, Disp# 10.2 g, Refills: 1, AFTER USE., Pharmacy: [facility] [id number] Start Date: 05/15/24 Status: Ordered chlorthalidone 25 mg oral tablet Start: 02/23/24 3:03:00 PM EDT, 1 tab, PO, q48h, Disp# 45 tab, Refills: 0, Pharmacy: [facility] [id number] Start Date: 02/23/24 Status: Ordered Eliquis 5 mg oral tablet Start: 04/26/24 2:28:00 PM EDT, 1 tab, PO, bid, Disp# 180 tab, Refills: 3, Pharmacy: [facility] [id number] Start Date: 04/26/24 Status: Ordered lisinopril 20 mg oral tablet Start: 07/11/24 11:13:00 AM EDT Start Date: 07/11/24 Status: Ordered magnesium oxide Start: 02/28/24 11:10:00 AM EDT, Daily Start Date: 02/28/24 Status: Ordered Metoprolol Succinate ER 25 mg oral tablet, extended release Start: 04/26/24 11:15:00 AM EDT, 1 tab, PO, Daily, Disp# 90 tab, Refills: 3, do not crush or chew, Pharmacy: [facility] [id number] Start Date: 04/26/24 Status: Ordered Nitrostat 0.4 mg sublingual tablet Start: 05/20/22 10:05:00 AM EDT, 1 tab, SL, q5min, Disp# 100 tab, Refills: 1, PRN: as needed for chest pain, [facility]: [id number] Start Date: 05/20/22 Stop Date: 07/19/22 Status: Ordered rosuvastatin 40 mg oral tablet Start: 06/07/24 9:51:00 AM EDT, 1 tab, PO, qhs, Disp# 90 tab, Refills: 0, Pharmacy: [facility] Start Date: 06/07/24 Status: Ordered sertraline 50 mg oral tablet Start: 02/26/24 11:55:00 AM EDT, 1 tab, PO, Daily, Disp# 90 tab, Refills: 0, Pharmacy: [facility] [id number] Start Date: 02/26/24 Status: Ordered Trelegy Ellipta 100 mcg-62.5 mcg-25 mcg/inh inhalation powder Start: 07/25/24 8:44:00 AM EDT Start Date: 07/25/24 Status: Ordered Mental Status 07/25/24 Barriers to Learning one year None evide nt Mandatory Health Literacy Documentation Yes Health Literacy Communication Barriers N ever Primary Language Kazakh Problem List Condition Confirmation Course Effective Dates [...] Diagnosis Diagnosis Type Effective Dates Health Status Clinical Service Informant Atrial flutter Discharge Diagnosis 07/25/24 Non-Specified Atrial fibrillation Discharge Diagnosis 07/25/24 Procedures Procedure Date Related Diagnosis Body Site [...] 06/05/18 C ompleted Small bowel enteroscopy 14 11/23/17 Completed Upper GI endoscopy 15 11/21/17 Com [...] Most recent to oldest [Reference Range]: 1 Patient Weight 88 kg (07/25/24 8:51 AM) Heart Rate 65 bpm (07/25/24 8:51 AM) Blood Pressure 126/72mmHg (07/25/24 8:51 AM) BP Location # 1 Right Arm (07/25/24 8:51 AM) Social History Social History Type Response Tobacco Former smoker, Cigar ettes, Cigars, Pipe, 50 year(s). 1 Smoking Status Never smoked cigaret yamilet Sex Male Sex Representation Male (finding) 1Quit 2015 Cardiology * Contributor_system, MUSE01: VERIFY, PERFORM Event Display: EKG Authored Date: Please click on link to see image. Patient Care team information Care Team Personnel Name: FAHEEM Shaffer Janet Griffith Position: Nurse Pract - Pulmonary Med Member Role: Lifetime Relationship Address: [address] [place] [address] [place] Name: MD Kyree, Megan Position: Physician - Family Med Member Role: Primary Care Provider Address: [address] [place], [place] [id number] Care Team Related Persons Name: JENNIFER PEREZ
[2024-09-14] MEDS: LACTATED RINGER'S 500 ML IV ONE (20:37)
--- NOTE | 2024-09-14 20:55 | CT Scan Report ---
Exam(s): CTA CHEST With Contrast IV Amt: 119ML OPTIRAY 320 EXAM: CT Angiography Chest With Intravenous Contrast CLINICAL HISTORY: Reason for exam: suspected acute AVM bleed. ?active extravasation. TECHNIQUE: Axial computed tomographic angiography images of the chest with intravenous contrast. CTDI is 20.15 mGy and DLP is 761.69 mGy-cm. Automated exposure control was utilized for the study. A dose lowering technique was utilized adhering to the principles of ALARA. MIP reconstructed images were created and reviewed. CONTRAST: Patient received 119ML OPTIRAY 320 of IV contrast COMPARISON: No relevant prior studies available. FINDINGS: Pulmonary arteries: Unremarkable. No evidence of acute pulmonary embolism. Aorta: Previous and ascending aortic repair. No aneurysm or dissection. Other arteries: Mildly enlarged main pulmonary suggesting palmar arterial hypertension. Lungs: Emphysema. Consolidation in the dependent right lower lobe. Pleural-parenchymal scarring at the lung apices. Calcified granulomas stable subpleural pulmonary micronodules in the right lower lobe (series 4, image 193). Stable subpleural pulmonary micronodule in the right upper lobe (series 4, image 145). Given pleural association, no follow- up indicated per Fleischner Society guidelines. Pleural space: Unremarkable. No significant effusion. No pneumothorax. Heart: Previous sternotomy and aortic valve replacement. Mild cardiomegaly. No pericardial effusion. Bones/joints: No acute osseous findings. Soft tissues: Unremarkable. Lymph nodes: Calcified mediastinal and hilar lymph nodes consistent with chronic granulomatous disease. IMPRESSION: 1. No evidence of acute pulmonary embolism. 2. Consolidation in the dependent right lower lobe. Appearance could represent pneumonia or aspiration. Electronically signed by: Will Simmons M.D. 09/14/24 20:55 PM
[2024-09-14 22:11] LABS: Appearance Urine Clear (Clear); Bacteria Urine Automated None Seen (None Seen); Bilirubin Urine Negative (Negative); Blood Urine Trace (Negative); Color Urine Yellow; Epithelial Cell Urine Auto 0-2 /hpf (0-2); Glucose Urine UA Negative (Negative); Ketones Urine Negative (Negative); Leukocyte Esterase Urine Negative (Negative); Nitrite Urine Negative (Negative); Protein Urine 2+ (Negative); RBC Urine Automated 0-2 /hpf (0-2); Specific Gravity Urine 1.031 (1.000-1.030); Urobilinogen Urine Negative (Negative); WBC Urine Automated 0-5 /hpf (0-5); pH Urine 5.5 (4.5-7.5)
[2024-09-14] MEDS ORDERED: ACETAMINOPHEN 325 MG TAB PO PRN (22:44)
[2024-09-14 23:12] LABS: Hematocrit (blood only) 28.8 % (42.0-52.0); Hemoglobin 9.5 g/dl (14.0-18.0)
[2024-09-15 01:29] LABS: Hemoglobin 9.6 g/dl (14.0-18.0)
[2024-09-15] MEDS: CEFEPIME 2000MG 2,000 MG/20 ML SYR IV SCH (06:06)
[2024-09-15 06:22] LABS: Hematocrit (blood only) 27.5 % (42.0-52.0); Hemoglobin 9.2 g/dl (14.0-18.0); Mean Corpuscular Hemoglobin 30.6 pg (25.0-34.0); Mean Corpuscular Hgb Conc 33.5 g/dL (32.0-36.0); Mean Corpuscular Volume 91.4 fL (80.0-100.0); Mean Platelet Volume 10.3 fL (9.4-12.4); Platelet Count 256 K/uL (130-400); RDW Coefficient of Variation 14.2 % (11.5-14.5); RDW Standard Deviation 46.9 fL (36.4-46.3); Red Blood Count 3.01 M/uL (4.70-6.10); White Blood Count 22.32 K/ul (4.8-10.8)
[2024-09-15 06:41] LABS: BUN Creatinine Ratio 32.2 (10-20); Creatinine Clr Calc Pharmacy 45.4 ml/min; Potassium 4.9 mmol/L (3.5-5.1)
[2024-09-15 06:43] LABS: Basophils # (auto) 0.04 K/uL (0.00-0.20); Basophils % (auto) 0.2 %; Immature Granulocytes # (auto) 0.21 K/uL (0.01-0.20); Immature Granulocytes % (auto) 0.9 %; Lymphocytes % (auto) 2.2 %; Monocytes # (auto) 0.77 K/uL (0.11-0.59); Monocytes % (auto) 3.4 %; Neutrophils % (auto) 93.3 %; Polychromasia 1+
--- NOTE | 2024-09-15 07:21 | Electrocardiogram Report ---
Test Reason : Blood Pressure : */* mmHG Vent. Rate : 94 BPM Atrial Rate : 94 BPM P-R Int : 288 ms QRS Dur : 114 ms QT Int : 366 ms P-R-T Axes : 62 -1 73 degrees QTcB Int : 457 ms Sinus rhythm with 1st degree A-V block with Premature ventricular complexes possible Inferior infarct (cited on or before 12-May-2022) Abnormal ECG When compared with ECG of 12-May-2022 11:40, No significant change was found Confirmed by Ino Styles ([id number]) on 09/15/2024 7:21:16 AM Referred By: NO PCP Confirmed By: Ino Styles
[2024-09-15] MEDS: AZITHROMYCIN 250 MG in SODIUM CHLORIDE 0.9% 250 ML IV SCH (08:19)
[2024-09-15] MEDS: LACTATED RINGER'S 1,000 ML IV SCH (08:19)
[2024-09-15] MEDS: ASPIRIN 81 MG CHEW PO SCH (08:19)
[2024-09-15] MEDS: FLUTICASONE FUROATE 100MCG 14 PUFFS/INHALER INH SCH (08:20)
[2024-09-15] MEDS: UMECLIDINIUM/VILANTEROL 62.5/25MCG 7 PUFFS/INHALER INH SCH (08:20)
[2024-09-15] MEDS ORDERED: AZITHROMYCIN 500 MG VIAL IV SCH (09:00)
[2024-09-15] MEDS ORDERED: NON-FORMULARY MEDICATION (Fluticasone-Umeclidin-Vilanter [Trelegy Ellipta] 100-62.5-25 mcg INH SCH (09:00)
--- NOTE | 2024-09-15 09:26 | Hospitalist Progress Note ---
Date of Service September 15, 2024 Assessment & Plan (1) Upper GI bleed: (2) Sepsis: (3) Right lower lobe pneumonia: (4) CAD (coronary artery disease), [place] coronary artery: (5) History of atrial flutter: (6) Rhinovirus infection: (7) Enterovirus infection: (8) History of tobacco use disorder: Plan Patient is a 74 y/o M w/ PMHx of atrial flutter (on Eliquis), GERD, COPD, GI bleed w/ noted small bowel AVM, CAD w/ stent placement in 2015, and tobacco use that was admitted due to upper GI bleed and PNA. Upper GI bleed - Patient reports coffee ground emesis on the morning of 08/14 and melena - Hgb 10.4 on arrival. Was 9.2 in recent H&H. - Blood consent form obtained in the ED; 4 units on hold - Protonix drip - Trend H&H q8h - GI consulted EGD scheduled for tomorrow Clear liquid diet today and NPO after midnight RLL pneumonia // met SIRS at time of admission - Leukocytosis of 17 at time of admission, which increased to 22 this am, however, given clinical stability, consider possible this may have been due to dose of Methylprednisolone 40 mg IV given in the ED. Continue to monitor. - No fever since 5 pm yesterday, and vital signs have been stable - Blood cultures pending - Lactate of 1.0, and procalcitonin of 0.37 - Biofire positive for Entero-/rhinovirus - CXR and CTA showing RLL pneumonia - MRSA nares negative - Continue Cefepime + azithromycin - Supplemental oxygen as needed to maintain SpO2 >94% Atrial Fibrillation/Flutter - Hold Eliquis COPD - Continue Arnuity and Anoro inhaler CAD - Stent x 1 in 2016 - Continue aspirin in the a.m. VTE PPx: Hold Eliquis Admission and Anticipated Discharge Date Admission Date: September 14, 2024 Supervising Physician Co-Signing Physician Notes Patient seen and examined, chart reviewed, case discussed with Dr. Good and I agree with the assessment and plan as above except as otherwise noted Labs and images reviewed 74-year-old Wilmer male who presents with fever chills and pneumonia. Has had black emesis, elevated BUN and epigastric tenderness suggestive of upper GI bleed. Globin stable overnight slightly uptrending and then downtrending despite fluid resuscitation. Given critical IV fluid shortage and hemodynamic stability we will continue clears today, n.p.o. at midnight in anticipation of EGD tomorrow. Dutch held this is for atrial flutter and patient is currently in sinus. Feels well this morning. No recurrent vomiting, did not have any bowel movements yet this morning. Denies lightheadedness, dizziness, chest pain, chest pressure, shortness of breath, difficulty breathing. He is quite hungry and would like at least to eat or drink if able until his scope but otherwise has no acute questions or concerns. Agree with management of pneumonia above, respiratory status is stable. Lungs continue to have crackles/coarse in the right lower lobe. MRSA nare is negative, patient was initially started on Rocephin/azithromycin rather than ceftriaxone due to possible healthcare exposure at [facility] [place] facility recently and critical illness, as he is doing well and clinically progressing reasonable to narrow this to Rocephin/azithromycin. Agree with above. Subjective Patient evaluated at bedside and found to be awake, alert, and oriented, NAD. He states his nausea has improved and feels better compared to time prior to discharge. Gets SOB when ambulating to and from the bathroom, has not ambulated further but interested in doing so. Has not had a bm but has not eaten anything either. Denies fevers, chills, chest pain, nausea or vomiting, abdominal pain, or any other sxs. Physical Exam Physical Exam: General: AAOx3, afebrile, NAD Lungs: Breathing comfortably w/ NC at 2 lpm and saturating 97% at time of evaluation, course rhonchi noted in bilateral lung ba, no respiratory distress ABD: soft, non distended, non tender to palpation MSK:no edema or calf tenderness in b/l LE Results & Data Results & Data Vital Signs (Past 12 Hours) Vital Signs Temp Pulse Pulse Resp BP BP Pulse Ox 09/15/24 07:00 36.6 C 87 20 120/74 97 09/15/24 02:58 36.7 C 74 18 134/66 98 09/14/24 23:21 36.8 C 78 20 127/61 97 09/14/24 22:50 76 09/14/24 22:46 09/14/24 22:35 83 18 114/64 95 09/14/24 22:30 36.8 C 78 20 127/61 97 O2 Del Method O2 Flow Rate 09/15/24 07:00 Nasal Cannula 2 09/15/24 02:58 Nasal Cannula 09/14/24 23:21 Nasal Cannula 2 09/14/24 22:50 09/14/24 22:46 Nasal Cannula 2 09/14/24 22:35 Nasal Cannula 2 09/14/24 22:30 Nasal Cannula 2 Resident Activity Tracking Resident Involvement: Resident Care Provided Care Provided: Adult Hospital Medicine
--- NOTE | 2024-09-15 11:01 | Gastrointestinal Consultation ---
Date of Consultation September 15, 2024 Assessment & Plan (1) Anemia: (2) Upper GI bleed: Differential diagnosis: Gastritis, peptic ulcer disease, esophagitis. The patient is stable today. EGD scheduled for tomorrow. Start clear liquid diet today. Continue pantoprazole. Continue to hold anticoagulation. Supervising Physician Co-Signing Physician Notes Robbin Chery is a 74-year-old male with a past medical history of COPD, CAD, anticoagulation with apixaban who presents to the hospital for evaluation of fever, chills, cough and suspected pneumonia. Patient has had some nausea and vomiting and has black appearing emesis on his lips. He has not had coby rectal bleeding or melena but does have Hemoccult positive stool and an elevated BUN suggestive of upper GI bleeding. There is no abdominal tenderness. Patient was seen at the bedside. Limited history available in the system however patient is seen by [facility] providers, records pending. Patient reportedly with a history of A-fib, a flutter on anticoagulation, small bowel AVM, CKD, COPD, COPD with tobacco abuse in remission, abdominal aortic aneurysm s/p repair [place] [facility] with 1 KENNEY and no history of heart failure, and history of cholecystectomy. He reports he does travel periodically to [place] for medical treatments "to stay healthy ". He does have a history of visual loss in his left eye. He reports that there was some concern for his dark bowel movement so he had a colonoscopy in [place] but does not know the results of this, does not think he had any stomach problems. He reports in the past he did have to have a endoscopy extended deeper into the intestine which burned off a bleeding spot consistent with small bowel AVM treated by push endoscopy with cauterization. Patient is tender at the epigastrium on exam. He is tachycardic, borderline hypotensive additionally he has had fever chills and cough for 1 day with right lower lobe pneumonia seen on CT. Medical history per chart review: A-fib/a flutter on anticoagulation Small bowel AVM CKD COPD Improving/COPD with tobacco abuse in remission AAA s/p repair [place] [facility] [place] with 1 KENNEY Patient is blind in his left eye Community-acquired pneumonia Leukocytosis of 17.05 - Rhino/enterovirus Procalcitonin borderline BioFire pending Chest x-ray with right lower lobe pneumonia Patient is borderline normotensive, tachycardic, febrile on admission Meet sepsis criteria on admission. Patient has been ordered 1 L of IV fluids. Additional 1500 cc of fluids ordered to meet at least ideal body weight goal of 1427 cc, pt seen at [facility] fo critical IV fluid shortage however PO defererd due to UGIB. MRSA nares pending EKG with QTc 457. Sinus. Lactate not elevated Upper GI bleed - On hx patient with hx of ABM bleeding. CTA-A/P ordered to eval for extr avasation/?AVM, this war erroneously ordered at CTA Chest. Due to dye load, stable H&H on recheck, and clinical improvement following fluids without ongoing bleeding repeat CT deferred. With small mount of black material in emesis, and no coby lower GI bleed but with Hemoccult positive stool History of AVMs as noted Continue PPI gtt., was ordered 80 mg load and gtt. on admission - GI consulted 2 units ordered for match for acute bleeding if needed. Does not meet threshold triggered goals at time of admission although has had a 3 point drop and is now s/p fluid resuscitation. Stat H&H ordered to reassess for hemoglobin stability. History of Present Illness Reason for Consultation: Melena, anemia, questionable hematemesis. Attending Physician: Azam Esteves MD History of Present Illness The patient was admitted with chills, fever, cough. Prior to the admission patient vomited and had vague upper abdominal pain. The patient stated that he vomited with food and denies hematemesis however as per emergency room note the patient did have coffee-ground emesis. The patient had few episodes of dark, melenic stools. Hemoglobin decreased from baseline of 13 to 9.6 yesterday and 9.2 today. BUN was 56 and creatinine 1.52 on admission. Stool was heme positive on admission. The patient is on Eliquis 5 mg twice a day for atrial flutter. Chest x-ray and CT of the chest showed right lower lobe pneumonia. His vital signs were stable except for temperature of 38.3. The patient has a history of GI blood loss approximately 5 to 7 years ago. At that time he underwent upper endoscopy which was nondiagnostic. He was then referred to [facility] for capsule endoscopy and small bowel enteroscopy which apparently detected the "bleeding spot" which was successfully treated with presumed cautery. The patient states that he had colonoscopy while vacationing in [place] in May 2024. The colon was reportedly was normal. Denies chronic heartburn, regurgitation, dysphagia. Denies chronic diarrhea, chronic abdominal pain. Apixaban was held. Started on pantoprazole infusion, IV cefepime and azithromycin. No further vomiting, no further abdominal pain, no bowel movements today. Allergies Allergy/AdvReac Type Severity Reaction Status Date / Time No Known Drug Allergies Allergy Verified 09/14/24 19:05 Home Medications Medication Instructions Recorded Confirmed Type albuterol sulfate 90 mcg/actuation 2 puff inhalation BID 02/04/20 09/14/24 History aerosol inhaler metoprolol succinate 25 mg 25 mg PO HS 02/04/20 09/14/24 History tablet,extended release 24 hr aspirin 81 mg chewable tablet 81 mg PO QAM 05/05/21 09/14/24 History (Ashley Chewable Low Dose Aspirin) lisinopril 10 mg tablet 10 mg PO QAM 05/05/21 09/14/24 History rosuvastatin 40 mg tablet 40 mg PO HS 04/27/23 09/14/24 History sertraline 50 mg tablet 50 mg PO DAILY 04/27/23 09/14/24 History apixaban 5 mg tablet (Eliquis) 5 mg PO BID 05/17/24 09/14/24 History fluticasone fur. 100 mcg-umeclid 1 inh inhalation DAILY #180 ea 08/23/24 09/14/24 Rx 62.5 mcg-vilant 25 mcg inhalat.powder (Trelegy Ellipta) Patient History Medical History Aortic valve disease s/p AVR- 2017 (echo 10/28/20 with normal appearing bioprosthetic aortic valve and normal transvalvular flow velocities and no AI) History of ND (myocardial infarction) 2016 History of kidney stones CKD (chronic kidney disease) High cholesterol Hypertension Surgical History History of mastoidectomy History of AAA (abdominal aortic aneurysm) repair History of esophagogastroduodenoscopy (EGD) History of colonoscopy History of heart artery stent History of cardiac cath S/P AVR (aortic valve replacement) History of cataract extraction History of cholecystectomy History of oral surgery History of appendectomy H/O thoracic aortic aneurysm repair Family History Mother Stroke Father Bone cancer Other Emphysema lung Lung disease No family history of adverse response to anesthesia No family history of bleeding disorder Social History Smoking Status: Never smoker Tobacco Type: Cigarettes Age Started Using Tobacco: 50; Age Quit Using Tobacco: 65; packs per day: 1; Second Hand Exposure: No; Do You Dip or Chew Tobacco: No; Hx Alcohol Use: No Hx Substance Use: No Preferred Language: Ukrainian Communication Ability: Effective Adult High School Instructor Required: No Beliefs That Will Affect Care: Hinduism Hinduism Beliefs: [facility] marital status: Current Living Situation: Spouse Current Living Situation Comment: With Brother//Family current occupational status: employed current occupation: [employer] Other Information That Helps Us Care for You: No Feels Safe at Home: Yes Safety Concerns: Feels Safe At This Time Assistive Devices: Denture - Upper, Denture - Lower and Glasses Review of Systems Review of Systems: Constitutional: Denies weight loss, was complaining of chills, now resolving. Respiratory: Complains of cough, now decreasing, denies shortness of breath. Cardiovascular: Denies chest pain and palpitations. Gastrointestinal: As per history of present illness. Physical Exam Physical Exam: Constitutional: WD/WN, vitals as above Respiratory: normal respiratory effort, lungs clear to auscultation Cardiovascular: RRR, systolic ejection murmur 2/6, no edema Gastrointestinal (Abdomen): normal bowel sounds, soft, nontender, no hepatosplenomegaly. Neurological: Oriented x 3, grossly no focal abnormalities, speech is intact. Results & Data Vital Signs (Past 12 Hours) Vital Signs Temp Pulse Resp BP Pulse Ox O2 Del Method O2 Flow Rate 09/15/24 07:00 36.6 C 87 20 120/74 97 Nasal Cannula 2 09/15/24 02:58 36.7 C 74 18 134/66 98 Nasal Cannula 09/14/24 23:21 36.8 C 78 20 127/61 97 Nasal Cannula 2 PG Care Time/CCT Total # of Minutes Spent Total Time Spent with Patient: Total time spent is greater than 50% in coordination of care (as documented) at patient's floor/unit and/or counseling patient: Coding Level of Care Code 27715 INT INP/OBS CARE MIN Diagnoses Anemia D62 Anemia type: other cause Other causes of anemia: acute posthemorrhagic Upper GI bleed K92.2 (1) Anemia Anemia type: other cause Other causes of anemia: acute posthemorrhagic Cameron lified Code(s): D62 - Acute posthemorrhagic anemia
--- NOTE | 2024-09-15 12:21 | Billing Data ---
Date of Service September 15, 2024 Coding Level of Care Code 39660 SUB INP/OBS CARE
[2024-09-15 15:16] LABS: Hematocrit (blood only) 28.1 % (42.0-52.0); Hemoglobin 9.2 g/dl (14.0-18.0)
[2024-09-15] MEDS: ALBUT/IPRATROP 3MG/0.5MG NEB 3 ML VIAL NEB STA (21:07)
[2024-09-15 22:49] LABS: Hematocrit (blood only) 24.6 % (42.0-52.0); Hemoglobin 8.4 g/dl (14.0-18.0)
[2024-09-16 05:30] LABS: BUN Creatinine Ratio 28.9 (10-20); Calcium 9.2 mg/dl (8.6-10.3); Creatinine Clr Calc Pharmacy 53.9 ml/min; Potassium 4.5 mmol/L (3.5-5.1)
[2024-09-16] MEDS: cefTRIAXone SODIUM 2,000 MG/50 ML BAG IV SCH (05:35)
[2024-09-16 05:40] LABS: Basophils # (auto) 0.03 K/uL (0.00-0.20); Basophils % (auto) 0.3 %; Eosinophils % (auto) 0.9 %; Hematocrit (blood only) 25.6 % (42.0-52.0); Hemoglobin 8.4 g/dl (14.0-18.0); Immature Granulocytes # (auto) 0.07 K/uL (0.01-0.20); Immature Granulocytes % (auto) 0.6 %; Lymphocytes # (auto) 1.13 K/uL (1.20-3.40); Lymphocytes % (auto) 9.9 %; Mean Corpuscular Hemoglobin 29.9 pg (25.0-34.0); Mean Corpuscular Hgb Conc 32.8 g/dL (32.0-36.0); Mean Corpuscular Volume 91.1 fL (80.0-100.0); Mean Platelet Volume 10.3 fL (9.4-12.4); Monocytes # (auto) 0.75 K/uL (0.11-0.59); Monocytes % (auto) 6.6 %; Neutrophils # (auto) 9.28 K/uL (1.40-6.50); Neutrophils % (auto) 81.7 %; Platelet Count 224 K/uL (130-400); RDW Standard Deviation 46.3 fL (36.4-46.3); Red Blood Count 2.81 M/uL (4.70-6.10); White Blood Count 11.36 K/ul (4.8-10.8)
--- NOTE | 2024-09-16 07:26 | Anesthesiology Consultation ---
Date of Service September 16, 2024 Assessment & Plan Chart Review Chart Review: Acceptable Risk for Surgery Consults Requested none History Surgery Operation Date: 09/16/24 17:25 Proposed Procedures p Esophagogastroduodenoscopy Heike Burroughs MD Height/Weight Height: 6 ft Weight: 87 kg Allergies Allergy/AdvReac Type Severity Reaction Status Date / Time No Known Drug Allergies Allergy Verified 09/14/24 19:05 Medications Home Medications Medication Instructions Recorded Confirmed Last Taken albuterol sulfate 90 mcg/actuation 2 puff inhalation BID 02/04/20 09/14/24 05/12/22 08:00 aerosol inhaler metoprolol succinate 25 mg 25 mg PO HS 02/04/20 09/14/24 05/12/22 tablet,extended release 24 hr aspirin 81 mg chewable tablet 81 mg PO QAM 05/05/21 09/14/24 05/12/22 (Ashley Chewable Low Dose Aspirin) lisinopril 10 mg tablet 10 mg PO QAM 05/05/21 09/14/24 05/12/22 rosuvastatin 40 mg tablet 40 mg PO HS 04/27/23 09/14/24 Unknown sertraline 50 mg tablet 50 mg PO DAILY 04/27/23 09/14/24 Unknown apixaban 5 mg tablet (Eliquis) 5 mg PO BID 05/17/24 09/14/24 Unknown fluticasone fur. 100 mcg-umeclid 1 inh inhalation DAILY #180 ea 08/23/24 09/14/24 Unknown 62.5 mcg-vilant 25 mcg inhalat.powder (Trelegy Ellipta) Active Medications Generic Name Dose Route Start Last Admin Trade Name Freq PRN Reason Stop Dose Admin Aspirin 81 mg 09/15/24 09:00 09/16/24 09:05 Aspirin 81 Mg Chew PO 10/15/24 08:59 Not Given QAM CARRINGTON Fluticasone Furoate 1 puffs 09/15/24 09:00 09/16/24 08:57 Fluticasone Furoate 100mcg 14 Puffs/Inhaler INH 10/15/24 08:59 1 puffs DAILY CARRINGTON Administration Pantoprazole Sodium 40 mg/ 100 mls @ 20 mls/hr 09/14/24 19:30 09/16/24 11:58 Dextrose IV 10/14/24 19:29 8 mg/hr Q5H CARRINGTON 20 mls/hr Administration 8 MG/HR Azithromycin 250 mg/ Sodium 252.5 mls @ 126.25 mls/hr 09/15/24 09:00 09/16/24 10:59 Chloride IV 09/20/24 08:59 Infused Q24H CARRINGTON Infusion Ceftriaxone Sodium 2,000 mg in 50 mls @ 100 mls/hr 09/16/24 06:00 09/16/24 06:05 Rocephin IV 09/21/24 05:59 Infused Q24H CARRINGTON Infusion Umeclidinium/Vilanterol 1 puffs 09/15/24 09:00 09/16/24 08:56 Umeclidinium/Vilanterol 62.5/25mcg 7 Puffs/Inhaler INH 10/15/24 08:59 1 puffs DAILY CARRINGTON Administration NPO Date Last Intake of Fluids: 09/15/24 Date Last Intake of Solids: 09/14/24 Past Medical History Medical History (Updated 09/16/24 @ 07:23 by Vani Luo DO) History of atrial flutter 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 SNHL, :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 History of tobacco use disorder GERD (gastroesophageal reflux disease) Tinnitus of both ears GI bleed 2019 CAD (coronary artery disease), [place] coronary artery stent x1 (2016) COPD (chronic obstructive pulmonary disease) "Controlled" > follows with [facility] in [place] ([phone]) Aortic valve disease s/p AVR- 2018 (echo 10/28/20 with normal appearing bioprosthetic aortic valve and normal transvalvular flow velocities and no AI) History of AK (myocardial infarction) 2016 History of kidney stones CKD (chronic kidney disease) High cholesterol Hypertension Exercise / Class Metabolic Activity II 4-5 Yardwork/Stairs/Walk up hill Past Family History Family History Mother Stroke Father Bone cancer Other Emphysema lung Lung disease No family history of adverse response to anesthesia No family history of bleeding disorder Past Surgical History Surgical History History of mastoidectomy Left Tympanomastoidectomy - 05/21/[address] Cisneros History of AAA (abdominal aortic aneurysm) repair 2018 History of esophagogastroduodenoscopy (EGD) History of colonoscopy History of heart artery stent stent x1 (2016) History of cardiac cath S/P AVR (aortic valve replacement) 2018 History of cataract extraction History of cholecystectomy History of oral surgery Removal of impacted teeth History of appendectomy H/O thoracic aortic aneurysm repair Past Anesthesia History No Hx of Anesthesia Complications and No Family Hx of Anesthesia Complications History of PONV No Hx of PONV and No Hx of Motion Sickness Social History Smoking Status: Never smoker tobacco type: cigarettes Do You Dip or Chew Tobacco: No Hx Alcohol Use: No Hx Substance Use: No substance use type: does not use Physical Exam Vital Signs Last Vital Signs Temp 36.8 C 09/16/24 11:14 Pulse 67 09/16/24 11:14 Resp 18 09/16/24 11:14 BP 162/80 H 09/16/24 11:14 Pulse Ox 94 09/16/24 11:14 O2 Del Method Room Air 09/16/24 11:14 O2 Flow Rate 3 09/16/24 07:27 Testing Laboratory Results 09/16/24 04:55 09/16/24 04:55 PT 11.4 Seconds (9.0-12.0) 09/14/24 17:04 INR 1.1 (0.9-1.1) 09/14/24 17:04 APTT 33 Seconds (21-31) H 09/14/24 17:04 Urine Color Yellow 09/14/24 20:40 Urine Appearance Clear (Clear) 09/14/24 20:40 Urine pH 5.5 (4.5-7.5) 09/14/24 20:40 Ur Specific [place] 1.031 (1.000-1.030) H 09/14/24 20:40 Urine Protein 2+ (Negative) H 09/14/24 20:40 Urine Glucose (UA) Negative (Negative) 09/14/24 20:40 Urine Ketones Negative (Negative) 09/14/24 20:40 Urine Nitrite Negative (Negative) 09/14/24 20:40 Ur Leukocyte Esterase Negative (Negative) 09/14/24 20:40 Urine WBC (Auto) 0-5 /hpf (0-5) 09/14/24 20:40 Urine RBC (Auto) 0-2 /hpf (0-2) 09/14/24 20:40 U Hyaline Cast (Auto) 3-5 /lpf (0-2) H 09/14/24 20:40 U Epithel Cells (Auto) 0-2 /hpf (0-2) 09/14/24 20:40 Urine Bacteria (Auto) None Seen (None Seen) 09/14/24 20:40 Blood Type A Positive 09/14/24 18:27 Antibody Screen NEGATIVE 09/14/24 18:27 09/14/24 17:58 Aerobic Blood Culture - Preliminary Blood No growth in Aerobic bottle after 24 hours. Anaerobic Blood Culture - Preliminary No growth in Anaerobic bottle after 24 hours. 09/14/24 17:04 Aerobic Blood Culture - Preliminary Blood No growth in Aerobic bottle after 24 hours. Anaerobic Blood Culture - Preliminary No growth in Anaerobic bottle after 24 hours. Electrocardiogram Date: 09/14/24 Vent. Rate : 94 BPM Atrial Rate : 94 BPM P-R Int : 288 ms QRS Dur : 114 ms QT Int : 366 ms P-R-T Axes : 62 -1 73 degrees QTcB Int : 457 ms Sinus rhythm with 1st degree A-V block with Premature ventricular complexes possible Inferior infarct (cited on or before 12-May-2022) Abnormal ECG When compared with ECG of 12-May-2022 11:40, No significant change was found Chest X-Ray Date: 09/14/24 Right lower lobe pneumonia, mild atelectasis left base and bilateral basilar bronchitis. Stable AV prosthesis
--- NOTE | 2024-09-16 07:38 | Hospitalist Progress Note ---
Date of Service September 16, 2024 Assessment & Plan (1) Upper GI bleed: (2) Sepsis: (3) Right lower lobe pneumonia: (4) CAD (coronary artery disease), augustine coronary artery: (5) History of atrial flutter: (6) Rhinovirus infection: (7) Enterovirus infection: (8) History of tobacco use disorder: Plan Patient is a 74 y/o M w/ PMHx of atrial flutter (on Eliquis), GERD, COPD, GI bleed w/ noted small bowel AVM, s/p AAA repair (at [facility] CAD w/ stent placement in 2015, and tobacco use that was admitted due to upper GI bleed and pneumonia. Upper GI bleed - Patient reports coffee ground emesis on the morning of 09/14 and melena - Hgb, 9.3 <-- 8.4 <-- 8.4 <-- 10.4 on arrival - Blood consent form obtained in the ED; 4 units on hold - Continue Protonix drip: 8 mg/hr, IV, q5hr - Continue trending H&H q8h through 09/16, 22:00 - GI consulted EGD scheduled for today, 17:25 --> Found Lula-Snider tear in lower esophagus two hemoclips placed Continue NPO since post-procedure, trend History of small bowel AVM (pt could not confirm) but confirmed in [facility] chart RLL pneumonia (met SIRS criteria at admission) - Leukocytosis, 11.4 <-- 22.3 <-- 17.0 (at time of admission), improving - given clinical stability, one day spike likely due to dose of Methylprednisolone 40 mg IV given in the ED. Monitor w/ CBC. - No fevers, vital signs have been stable - Blood cultures pending, no growth after 24 hrs - Lactate of 1.0; procalcitonin of 0.37 - Biofire positive for Entero-/rhinovirus - CXR and CTA showing RLL pneumonia - MRSA nares negative - Continue Cefepime + azithromycin - Supplemental oxygen as needed to maintain SpO2 >94%, on room air now, O2 Sat 94% Atrial Fibrillation/Flutter - Hold Eliquis COPD - Continue Arnuity (fluticasone) and Anoro (LAMA + LABA) inhaler CAD - Stent x 1 in 2016 - Continue aspirin, 81 mg, PO, AM Code status: Full code Disposition: PCU-Tele VTE PPx: Hold Dutch GUIDO: NPO post-upper GI Endoscopy after Hemoclips placed Admission and Anticipated Discharge Date Admission Date: September 14, 2024 Supervising Physician Co-Signing Physician Notes ATTESTATION I also saw the patient and confirmed suazo portions of the history and exam. I agree with the impression and plan in the resident documentation, and as summarized below. I also discussed the case with the repair department manager after the patient's EGD. Prior to EGD, he had no complaints other than being hungry. EXAM VS reviewed Alert and oriented. Heart regular rate and rhythm lungs clear throughout with mild labored respirations DATA Labs hemoglobin 8.4 creatinine 1.28 Micro Blood cultures collected 09/14/2024 showed no growth 48 hours IMPRESSION & PLAN Acute blood loss anemia Lula-Snider tear status post EGD with clipping GI consultation appreciated continue PPI IV carefully monitor hemoglobin overnight, as well as hemodynamics keep n.p.o. in case of rebleed pneumonia, right lower lobe continue cefepime and azithromycin history of atrial fibrillation/flutter Anishais on hold given acute blood loss anemia Additional per resident documentation Subjective Patient evaluated at bedside and found to be awake, alert, and oriented, NAD. He states his nausea has improved and feels better compared to time prior to discharge. No SOB when ambulating to and from the bathroom, has not ambulated further but interested in doing so. Still as not had a BM but has been on a clears diet only until going NPO overnight. Denies fevers, chills, chest pain, nausea or vomiting, abdominal pain, rectal bleeding, black/melena stools or any other sxs. Review of Systems Constitutional: no fever and no chills Respiratory: + cough, + chest congestion and + wheezi ng; no change in sputum, no pain on inspiration and no pain with cough Cardiovascular: no chest pain, no lightheadedness, no edema and no calf pain Gastrointestinal: no abdominal pain, no nausea and no vomiting Genitourinary: no dysuria Neurologic: no dizziness and no headache(s) Physical Exam Constitutional: WD/WN, vitals as above Respiratory: normal respiratory effort, lungs clear to auscultation Auscultation: lungs clear to auscultation bilaterally; no crackles and no wheezes Cardiovascular: Rate/Rhythm: regular rate and regular rhythm Heart Sounds: + murmur (noted on upper sternal border, r. and l. side) Extremities: no calf tenderness and no pedal edema Gastrointestinal (Abdomen): normal bowel sounds, soft, nontender, no hepatosplenomegaly Psychiatric: A+Ox3, euthymic affect Results & Data Results & Data Vital Signs (Past 12 Hours) Vital Signs Temp Pulse Pulse Resp BP Pulse Ox O2 Del Method 09/16/24 04:41 60 126/80 09/16/24 01:47 36.9 C 68 18 127/65 96 Nasal Cannula 09/15/24 23:41 80 09/15/24 23:21 37.2 C 69 18 111/63 98 Nasal Cannula 09/15/24 21:09 79 18 95 Nasal Cannula 09/15/24 19:46 Room Air 09/15/24 19:33 36.6 C 66 18 129/70 93 Room Air O2 Flow Rate 09/16/24 04:41 09/16/24 01:47 09/15/24 23:41 09/15/24 23:21 2 09/15/24 21:09 09/15/24 19:46 09/15/24 19:33 Resident Activity Tracking Resident Involvement: Resident Care Provided Care Provided: Adult Hospital Medicine
--- NOTE | 2024-09-16 08:55 | Gastroenterology Progress Note ---
Date of Service September 16, 2024 Assessment & Plan (1) Anemia: Plan: 74 year old male w/ history of atrial flutter (on Eliquis), CAD s/p cardiac stenting GERD, COPD, GI bleed, and tobacco use disorder admitted w/ coffee ground emesis and melena - Maintain NPO status for EGD evaluation this AM - Continue IV PPI - Trend H&H - Monitor and document GI output - Transfuse PRN per primary team We appreciate assistance in the management of any serological abnormality and corrections to include: hemoglobin >7, INR <2, platelets >50,000, potassium levels >3.5 but <5.3, and sodium levels within 5 points of the reference range prior to endoscopic evaluation. Thank you for allowing us to participate in the care of this patient. Please call with any acute changes, questions or concerns. Please see addendum below with additional recommendation from my supervising physician. Admission and Anticipated Discharge Date Admission Date: September 14, 2024 Supervising Physician Co-Signing Physician Notes I examined the patient and reviewed the medical record, laboratory data and imaging studies. I agree with the assessment and plan of care as suggested by the advanced practice provider. Subjective Pt was seen and evaluated, chart reviewed. Remains NPO for EGD evaluation today of coffee ground emesis. Per chart review there is history of a small bowel AVM treated at OSH w/ push endoscopy with cauterization. He notes that he was in [place] for EGD/Colonoscopy a few weeks ago but he is unsure of the results. Review of Systems Review of Systems: All other findings negative except as noted in HPI. Physical Exam Constitutional: WD/WN, vitals as above Respiratory: normal respiratory effort, lungs clear to auscultation Cardiovascular: RRR, no murmur, no edema Gastrointestinal (Abdomen): normal bowel sounds, soft, nontender, no hepatosplenomegaly Skin: no rashes, warm and dry Results & Data Results & Data Vital Signs (Past 12 Hours) Vital Signs Temp Pulse Pulse Resp BP Pulse Ox O2 Del Method 09/16/24 07:27 36.8 C 64 14 136/75 96 Nasal Cannula 09/16/24 04:41 60 126/80 09/16/24 01:47 36.9 C 68 18 127/65 96 Nasal Cannula 09/15/24 23:41 80 09/15/24 23:21 37.2 C 69 18 111/63 98 Nasal Cannula 09/15/24 21:09 79 18 95 Nasal Cannula O2 Flow Rate 09/16/24 07:27 3 09/16/24 04:41 09/16/24 01:47 09/15/24 23:41 09/15/24 23:21 2 09/15/24 21:09 Laboratory Results 09/16/24 09/15/24 09/15/24 Range/Units 04:55 22:31 14:52 WBC 11.36 H D (4.8-10.8) K/ul RBC 2.81 L (4.70-6.10) M/uL Hgb 8.4 L 8.4 L 9.2 L (14.0-18.0) g/dl Hct 25.6 L 24.6 L 28.1 L (42.0-52.0) % MCV 91.1 (80.0-100.0) fL MCH 29.9 (25.0-34.0) pg MCHC 32.8 (32.0-36.0) g/dL RDW Std Deviation 46.3 (36.4-46.3) fL RDW Coeff of Tristen 14.0 (11.5-14.5) % Plt Count 224 (130-400) K/uL MPV 10.3 (9.4-12.4) fL Immature Gran % (Auto) 0.6 % Neut % (Auto) 81.7 % Lymph % (Auto) 9.9 % [place] % (Auto) 6.6 % Eos % (Auto) 0.9 % Baso % (Auto) 0.3 % Neut # (Auto) 9.28 H (1.40-6.50) K/uL Lymph # (Auto) 1.13 L (1.20-3.40) K/uL [place] # (Auto) 0.75 H (0.11-0.59) K/uL Eos # (Auto) 0.10 (0.00-0.50) K/uL Baso # (Auto) 0.03 (0.00-0.20) K/uL Immature Gran # (Auto) 0.07 (0.01-0.20) K/uL Sodium 139 (136-145) mmol/L Potassium 4.5 (3.5-5.1) mmol/L Chloride 106 (98-107) mmol/L Carbon Dioxide 29 (21-32) mmol/L Anion Gap 4 (3-11) BUN 37 H (6-23) mg/dl Creatinine 1.28 (0.6-1.4) mg/dl Est Cr Clr Drug Dosing 53.9 ml/min eGFR 58.00 BUN/Creatinine Ratio 28.9 H (10-20) Glucose 109 H (70-99(Fasting)) mg/dl Calcium 9.2 (8.6-10.3) mg/dl PG Care Time/CCT Total # of Minutes Spent Total Time Spent with Patient: Total time spent is greater than 50% in coordination of care (as documented) at patient's floor/unit and/or counseling patient: Coding Level of Care Code None Diagnoses Anemia D62 Anemia type: other cause Other causes of anemia: acute posthemorrhagic (1) Anemia Anemia type: other cause Other causes of anemia: acute posthemorrhagic Qualified Code(s): D62 - Acute posthemorrhagic anemia
[2024-09-16 09:31] LABS: Magnesium 1.9 mg/dl (1.7-2.4)
[2024-09-16 15:20] LABS: Hematocrit (blood only) 28.9 % (42.0-52.0); Hemoglobin 9.5 g/dl (14.0-18.0)
--- NOTE | 2024-09-16 16:20 | GI REPORT ---
[facility] Patient: LILIANA PEREZ : 1950 Sex at : Male Age: 74 Years Procedure: Upper GI endoscopy Date: 09/16/2024 Attending Physician: Preet Burroughs MD Referring MD: Malik Hercules Indications: - GI bleed Medications: - Monitored Anesthesia Care Complications: - No immediate complications. Estimated Blood Loss: - Estimated blood loss was minimal. Procedure: - The egd scope was introduced through the mouth and advanced to the second part of the duodenum. - The upper GI endoscopy was accomplished with ease. - The patient tolerated the procedure well. Findings: - In the lower esophagus at the GE junction there was a Lula Snider tear with a visible vessel. There was some oozing of blood. Two hemoclips were placed over the vessel There was no bleeding after placement of hemoclips. The remainder of stomach and duodenum were grossly normal. Impression: - In the lower esophagus at the GE junction there was a Lula Snider tear with a visible vessel. There was some oozing of blood. Two hemoclips were placed over the vessel There was no bleeding after placement of hemoclips. The remainder of stomach and duodenum were grossly normal. - No specimens collected. Recommendation: - Keep NPO. Check INR and H and H. Hold eolquist. Check H and H every 8 hours. PPI drip. Procedure Code(s): - 64716, Esophagogastroduodenoscopy, flexible, transoral; diagnostic, including collection of specimen(s) by brushing or washing, when performed (separate procedure) CPT(R) - 2023 copyright [employer]. All Rights Reserved. The CPT codes, CCI edits and ICD codes generated are intended as suggestions and were generated based on input data. These codes are preliminary and upon physician assistant primary care review may be revised to meet current compliance and payer requirements. The provider is responsible for the final determination of appropriate codes, and modifiers. Preet Burroughs MD This document has been electronically signed. Note Initiated:09/16/2024 Note Completed:09/16/2024 4:19 PM [id number]
--- NOTE | 2024-09-16 17:00 | Anesthesiology Progress Note ---
Date of Service September 16, 2024 Anesthesia Post Procedure Vital Signs Vital Signs: Temp Pulse Pulse Resp BP Pulse Ox O2 Del Method 09/16/24 16:49 54 L 16 152/79 H 97 Room Air 09/16/24 16:35 61 16 142/73 H 93 Room Air 09/16/24 16:20 67 16 106/54 L 96 Room Air 09/16/24 15:47 53 L 09/16/24 15:29 37.1 C 62 15 178/70 H 97 Room Air 09/16/24 11:14 36.8 C 67 18 162/80 H 94 Room Air 09/16/24 09:00 Room Air 09/16/24 07:27 36.8 C 64 14 136/75 96 Nasal Cannula 09/16/24 04:41 60 126/80 09/16/24 01:47 36.9 C 68 18 127/65 96 Nasal Cannula 09/15/24 23:41 80 09/15/24 23:21 37.2 C 69 18 111/63 98 Nasal Cannula 09/15/24 21:09 79 18 95 Nasal Cannula 09/15/24 19:46 Room Air 09/15/24 19:33 36.6 C 66 18 129/70 93 Room Air O2 Flow Rate 09/16/24 16:49 09/16/24 16:35 09/16/24 16:20 09/16/24 15:47 09/16/24 15:29 09/16/24 11:14 09/16/24 09:00 09/16/24 07:27 3 09/16/24 04:41 09/16/24 01:47 09/15/24 23:41 09/15/24 23:21 2 09/15/24 21:09 09/15/24 19:46 09/15/24 19:33 Transfer of Care Handoff Completed per policy Notes Mental Status: alert / awake / arousable Patient Amnestic to Procedure: Yes Nausea / Vomiting: adequately controlled Pain: adequately controlled Airway Patency, RR, SpO2: stable & adequate BP & HR: stable & adequate Hydration State: stable & adequate Anesthetic Complications: no major complications apparent and Pt Satisfied with anesthetic care
[2024-09-16] MEDS: LIDOCAINE 2% 2 ML VIAL/AMP(20MG/ML) INFIL ONE (17:22)
[2024-09-16] MEDS: PROPOFOL IV EMULSION 10 MG/ML 20 ML VIAL IV ONE (17:22)
[2024-09-16] MEDS: LACTATED RINGER'S 1,000 ML IV SCH (17:22)
[2024-09-16 18:24] LABS: Hematocrit (blood only) 28.1 % (42.0-52.0); Hemoglobin 9.3 g/dl (14.0-18.0)
[2024-09-16 18:49] LABS: INR 1.1 (0.9-1.1); Prothrombin Time 11.4 Seconds (9.0-12.0)
[2024-09-16] MEDS: ACETAMINOPHEN 1,000 MG/100 ML VIAL IV PRN (20:29)
[2024-09-16 23:00] LABS: Hematocrit (blood only) 26.4 % (42.0-52.0); Hemoglobin 8.8 g/dl (14.0-18.0)
--- NOTE | 2024-09-17 07:04 | Hospitalist Progress Note ---
Date of Service September 17, 2024 Assessment & Plan (1) Upper GI bleed: (2) Sepsis: (3) Right lower lobe pneumonia: (4) CAD (coronary artery disease), [place] coronary artery: (5) History of atrial flutter: (6) Rhinovirus infection: (7) Enterovirus infection: (8) History of tobacco use disorder: Plan Patient is a 74 yo M w/ PMHx of atrial flutter (on Eliquis), GERD, COPD, GI bleed w/ noted small bowel AVM, s/p AAA repair (at [facility] [place]), CAD w/ stent placement in 2015, and tobacco use that was admitted due to upper GI bleed and pneumonia. 1) Upper GI bleed/Lula Snider Tear - Patient reported coffee ground emesis on the morning of 09/14 and melena - Hgb, 9.6 <-- 8.8 <-- 9.3 <-- 8.4 <-- 10.4 on arrival - Blood consent form obtained in the ED; 4 units on hold - Continue Protonix drip: 8 mg/hr, IV, q5hr - Continue trending H&H q8h through 09/17, 22:00. CBC AM labs afterwards - GI consulted EGD found MWT (Lula-Snider tear) in lower esophagus, two hemoclips placed Patient placed on clear liquid diet this morning, advance as tolerated History of small bowel AVM (pt could not confirm) but confirmed in [facility] chart - Pulse, and Hgb have all been WNL since hemoclip repair of MWT, BP's have been moderately elevated 2) RLL pneumonia (met SIRS criteria at admission) - Leukocytosis, 8.1 <-- 11.4 <-- 22.3 <-- 17.0 (at time of admission), improving - given clinical stability, one day spike likely due to dose of Methylprednisolone 40 mg IV given in the ED. Monitor w/ CBC. - No fevers, Blood cultures pending, no growth after 48 hrs - Lactate of 1.0; procalcitonin of 0.37 - Biofire positive for Entero-/rhinovirus, MRSA nares negative - CXR and CTA showed RLL pneumonia - Continue Ceftriaxone + azithromycin - Supplemental oxygen as needed to maintain SpO2 >94%, on room air now, O2 Sat 96% 3) Atrial Fibrillation/Flutter - Hold Eliquis - Held metoprolol succinate 4) COPD - Continue Arnuity (fluticasone) and Anoro (LAMA + LABA) inhaler 5) CAD - Stent x 1 in 2016 - Continue aspirin, 81 mg, PO, AM Code status: Full code Disposition: PCU-Tele VTE PPx: Hold Eliquis FENGI: Low fiber, soft-bite sized Diet Admission and Anticipated Discharge Date Admission Date: September 14, 2024 Supervising Physician Co-Signing Physician Notes ATTESTATION I also saw the patient with Dr. Matson and confirmed suazo portions of the history and exam. I agree with the impression and plan as noted in the resident documentation, and as summarized below. No events overnight. He was hungry this morning and was started on clears which he has tolerated well for breakfast. EXAM 157/78, 85, 20, 94% room air Alert and oriented. Heart regular rate and rhythm lungs clear throughout with mild labored respirations DATA Labs hemoglobin 9.2 creatinine 1.14 Micro Blood cultures collected 09/14/2024 showed no growth 48 hours IMPRESSION & PLAN Acute blood loss anemia Lula-Snider tear status post EGD with clipping GI consultation appreciated continue PPI IV slowly advance diet monitor hemoglobin pneumonia, right lower lobe continue cefepime and azithromycin history of atrial fibrillation/flutter Eliquis on hold given acute blood loss anemia Additional per resident documentation Subjective Patient evaluated at bedside and found to be awake, AAO x4, NAD. After being NPO all day yesterday before and after EGD that found evidence of a Lula-Snider tear, he started clear liquids at breakfast, advancing to full liquids at lunch. Denies fevers, chills, chest pain, nausea or vomiting, abdominal pain, rectal bleeding, black/melena stools or any other Sx presently. Did complain of some wheezing that was present before his morning nebulizer treatments. Review of Systems Constitutional: no fever and no chills Respiratory: + cough, + chest congestion and + wheezi ng; no change in sputum, no pain on inspiration and no pain with cough Cardiovascular: no chest pain, no lightheadedness, no edema and no calf pain Gastrointestinal: no abdominal pain, no nausea and no vomiting Genitourinary: no dysuria Neurologic: no dizziness and no headache(s) Physical Exam Constitutional: WD/WN, vitals as above Respiratory: normal respiratory effort, lungs clear to auscultation Auscultation: lungs clear to auscultation bilaterally and + wheezes (expiratory wheezing noted in anterior and posterior lungs); no crackles Cardiovascular: Rate/Rhythm: regular rate and regular rhythm Heart Sounds: + murmur (noted on upper sternal border, r. and l. side) Extremities: no calf tenderness and no pedal edema Gastrointestinal (Abdomen): normal bowel sounds, soft, nontender, no hepatosplenomegaly Psychiatric: A+Ox3, euthymic affect Results & Data Results & Data Vital Signs (Past 12 Hours) Vital Signs Temp Pulse Pulse Resp BP Pulse Ox O2 Del Method 09/17/24 03:27 36.8 C 68 16 127/59 L 96 Room Air 09/16/24 22:52 36.6 C 63 21 140/68 90 Room Air 09/16/24 22:01 Room Air 09/16/24 21:44 86 Resident Activity Tracking Resident Involvement: Resident Care Provided Care Provided: Adult Hospital Medicine
[2024-09-17 07:05] LABS: Basophils # (auto) 0.04 K/uL (0.00-0.20); Basophils % (auto) 0.5 %; Eosinophils # (auto) 0.21 K/uL (0.00-0.50); Eosinophils % (auto) 2.6 %; Hematocrit (blood only) 27.9 % (42.0-52.0); Hemoglobin 9.2 g/dl (14.0-18.0); Immature Granulocytes # (auto) 0.04 K/uL (0.01-0.20); Immature Granulocytes % (auto) 0.5 %; Lymphocytes # (auto) 1.07 K/uL (1.20-3.40); Lymphocytes % (auto) 13.1 %; Mean Corpuscular Hemoglobin 29.9 pg (25.0-34.0); Mean Corpuscular Volume 90.6 fL (80.0-100.0); Mean Platelet Volume 10.1 fL (9.4-12.4); Monocytes # (auto) 0.59 K/uL (0.11-0.59); Monocytes % (auto) 7.2 %; Neutrophils # (auto) 6.19 K/uL (1.40-6.50); Neutrophils % (auto) 76.1 %; Platelet Count 242 K/uL (130-400); RDW Coefficient of Variation 13.3 % (11.5-14.5); RDW Standard Deviation 43.5 fL (36.4-46.3); Red Blood Count 3.08 M/uL (4.70-6.10); White Blood Count 8.14 K/ul (4.8-10.8)
[2024-09-17 07:22] LABS: BUN Creatinine Ratio 23.7 (10-20); Creatinine Clr Calc Pharmacy 60.5 ml/min; Potassium 4.5 mmol/L (3.5-5.1)
[2024-09-17] MEDS ORDERED: Nursing to Pharmacy Communication SCH (09:00)
--- NOTE | 2024-09-17 09:39 | Gastroenterology Progress Note ---
Date of Service September 17, 2024 Assessment & Plan (1) Anemia: Plan: 74 year old male w/ history of atrial flutter (on Eliquis), CAD s/p cardiac stenting GERD, COPD, GI bleed, and tobacco use disorder admitted w/ coffee ground emesis and melena. S/P EGD 09/16 w/ GE junction there was a Lula Snider tear with a visible vessel clipped. HGB remained stable overnight, no report of BM since procedure - May have clear liquids today - Continue IV PPI today - Trend H&H q12h - Monitor and document GI output - Transfuse PRN per primary team I spent a total of 40 minutes on the date of service in review of patient's record, and previously obtained information in person and appropriate medical visit, discussion and education of plan, with patient and/or caregiver, placing orders for tests/referral/procedures as medically necessary and documentation of pertinent clinical information in patient's medical records for their visit today. Admission and Anticipated Discharge Date Admission Date: September 14, 2024 Supervising Physician Co-Signing Physician Notes I examined the patient and reviewed the medical record, laboratory data and imaging studies. I agree with the assessment and plan of care as suggested by the advanced practice provider. Patient appears comfortable today he is denies any specific GI complaints states he has not had a bowel movement per se no nausea vomiting or abdominal pain H&H has been stable he had a Lula-Snider tear with a visible vessel that was on which 2 clips were placed at the current time I would recommend 1. Monitor H&H every 12 2. Continue with PPI 3. Advance diet as tolerated Thank you for allowing us to take part in the care of patient will continue to follow him with you Subjective Pt was seen and evaluated, chart reviewed. No BM since EGD yesterday. Requesting breakfast - hungry. No nausea/vomiting. HGB stable. EGD 2023: In the lower esophagus at the GE junction there was a Lula Snider tear with a visible vessel. There was some oozing of blood. Two hemoclips were placed over the vessel There was no bleeding after placement of hemoclips. The remainder of stomach and duodenum were grossly normal. Review of Systems Review of Systems: All other findings negative except as noted in HPI. Physical Exam Constitutional: WD/WN, vitals as above Respiratory: normal respiratory effort, lungs clear to auscultation Cardiovascular: Rate/Rhythm: regular rate and regular rhythm Gastrointestinal (Abdomen): normal bowel sounds, soft, nontender, no hepa tosplenomegaly Skin: no rashes, warm and dry Results & Data Results & Data Vital Signs (Past 12 Hours) Vital Signs Temp Pulse Pulse Resp BP Pulse Ox O2 Del Method 09/17/24 08:11 66 09/17/24 07:27 36.9 C 66 16 164/83 H 95 Room Air 09/17/24 03:27 36.8 C 68 16 127/59 L 96 Room Air 09/16/24 22:52 36.6 C 63 21 140/68 90 Room Air 09/16/24 22:01 Room Air 09/16/24 21:44 86 Laboratory Results 09/17/24 09/16/24 09/16/24 Range/Units 06:33 22:36 18:10 WBC 8.14 (4.8-10.8) K/ul RBC 3.08 L (4.70-6.10) M/uL Hgb 9.2 L 8.8 L 9.3 L (14.0-18.0) g/dl Hct 27.9 L 26.4 L 28.1 L (42.0-52.0) % MCV 90.6 (80.0-100.0) fL MCH 29.9 (25.0-34.0) pg MCHC 33.0 (32.0-36.0) g/dL RDW Std Deviation 43.5 (36.4-46.3) fL RDW Coeff of Tristen 13.3 (11.5-14.5) % Plt Count 242 (130-400) K/uL MPV 10.1 (9.4-12.4) fL Immature Gran % (Auto) 0.5 % Neut % (Auto) 76.1 % Lymph % (Auto) 13.1 % [place] % (Auto) 7.2 % Eos % (Auto) 2.6 % Baso % (Auto) 0.5 % Neut # (Auto) 6.19 (1.40-6.50) K/uL Lymph # (Auto) 1.07 L (1.20-3.40) K/uL [place] # (Auto) 0.59 (0.11-0.59) K/uL Eos # (Auto) 0.21 (0.00-0.50) K/uL Baso # (Auto) 0.04 (0.00-0.20) K/uL Immature Gran # (Auto) 0.04 (0.01-0.20) K/uL PT 11.4 (9.0-12.0) Seconds INR 1.1 (0.9-1.1) Sodium 141 (136-145) mmol/L Potassium 4.5 (3.5-5.1) mmol/L Chloride 107 (98-107) mmol/L Carbon Dioxide 28 (21-32) mmol/L Anion Gap 6 (3-11) BUN 27 H (6-23) mg/dl Creatinine 1.14 (0.6-1.4) mg/dl Est Cr Clr Drug Dosing 60.5 ml/min eGFR 66.65 BUN/Creatinine Ratio 23.7 H (10-20) Glucose 95 (70-99(Fasting)) mg/dl Calcium 9.0 (8.6-10.3) mg/dl 09/16/24 Range/Units 14:56 WBC (4.8-10.8) K/ul RBC (4.70-6.10) M/uL Hgb 9.5 L (14.0-18.0) g/dl Hct 28.9 L (42.0-52.0) % MCV (80.0-100.0) fL MCH (25.0-34.0) pg MCHC (32.0-36.0) g/dL RDW Std Deviation (36.4-46.3) fL RDW Coeff of Tristen (11.5-14.5) % Plt Count (130-400) K/uL MPV (9.4-12.4) fL Immature Gran % (Auto) % Neut % (Auto) % Lymph % (Auto) % [place] % (Auto) % Eos % (Auto) % Baso % (Auto) % Neut # (Auto) (1.40-6.50) K/uL Lymph # (Auto) (1.20-3.40) K/uL [place] # (Auto) (0.11-0.59) K/uL Eos # (Auto) (0.00-0.50) K/uL Baso # (Auto) (0.00-0.20) K/uL Immature Gran # (Auto) (0.01-0.20) K/uL PT (9.0-12.0) Seconds INR (0.9-1.1) Sodium (136-145) mmol/L Potassium (3.5-5.1) mmol/L Chloride (98-107) mmol/L Carbon Dioxide (21-32) mmol/L Anion Gap (3-11) BUN (6-23) mg/dl Creatinine (0.6-1.4) mg/dl Est Cr Clr Drug Dosing ml/min eGFR BUN/Creatinine Ratio (10-20) Glucose (70-99(Fasting)) mg/dl Calcium (8.6-10.3) mg/dl PG Care Time/CCT Total # of Minutes Spent Total Time Spent with Patient: Total time spent is greater than 50% in coordination of care (as documented) at patient's floor/unit and/or counseling patient: Coding Level of Care Code 05637 SUB INP/OBS CARE 2/35MIN Diagnoses Anemia D62 Anemia type: other cause Other causes of anemia: acute posthemorrhagic (1) Anemia Anemia type: other cause Other causes of anemia: acute posthemorrhagic Qualified Code(s): D62 - Acute posthemorrhagic anemia
[2024-09-17 15:01] LABS: Hematocrit (blood only) 28.7 % (42.0-52.0); Hemoglobin 9.6 g/dl (14.0-18.0)
[2024-09-17 22:52] LABS: Hematocrit (blood only) 28.5 % (42.0-52.0); Hemoglobin 9.7 g/dl (14.0-18.0)
[2024-09-18 07:00] LABS: Hematocrit (blood only) 28.3 % (42.0-52.0); Hemoglobin 9.6 g/dl (14.0-18.0); Mean Corpuscular Hemoglobin 30.2 pg (25.0-34.0); Mean Corpuscular Hgb Conc 33.9 g/dL (32.0-36.0); Mean Platelet Volume 10.2 fL (9.4-12.4); Platelet Count 284 K/uL (130-400); RDW Coefficient of Variation 13.1 % (11.5-14.5); RDW Standard Deviation 42.5 fL (36.4-46.3); Red Blood Count 3.18 M/uL (4.70-6.10); White Blood Count 7.85 K/ul (4.8-10.8)
[2024-09-18 07:02] VITALS: RESP 19
[2024-09-18 07:22] LABS: BUN Creatinine Ratio 17.9 (10-20); Calcium 8.8 mg/dl (8.6-10.3); Creatinine Clr Calc Pharmacy 56.1 ml/min
--- NOTE | 2024-09-18 09:12 | Gastroenterology Progress Note ---
Date of Service September 18, 2024 Assessment & Plan (1) Anemia: Plan: 74 year old male w/ history of atrial flutter (on Eliquis), CAD s/p cardiac stenting GERD, COPD, GI bleed, and tobacco use disorder admitted w/ coffee ground emesis and melena. S/P EGD 09/16 w/ GE junction there was a Lula Snider tear with a visible vessel clipped. HGB remained stable overnight, no report of BM since procedure. He has remained hemodynamically stable w/ stable HGB - Diet as tolerated - Convert to PO PPI BID - Please refer to prior to documentation for additional recommendations - Recall GI as needed, will sign off I spent a total of 40 minutes on the date of service in review of patient's record, and previously obtained information in person and appropriate medical visit, discussion and education of plan, with patient and/or caregiver, placing orders for tests/referral/procedures as medically necessary and documentation of pertinent clinical information in patient's medical records for their visit today. Admission and Anticipated Discharge Date Admission Date: September 14, 2024 Supervising Physician Co-Signing Physician Notes I examined the patient and reviewed the medical record, laboratory data and imaging studies. I agree with the assessment and plan of care as suggested by the advanced practice provider. Patient is comfortable he is walking about in the hallways denies any active GI complaints he had a bleeding blood vessel that was clipped x 2 no further evidence of bleeding H&H is stable at the current time I would continue with PPI twice daily as outpatient and follow H&H serially will sign off please recall if any questions Subjective Feeling well. Denies abd pain. Tolerating oral intake. Has been walking the halls. Anxious to go home. Denies any BM. HGB stable. Review of Systems Review of Systems: All other findings negative except as noted in HPI. Physical Exam Constitutional: WD/WN, vitals as above Respiratory: normal respiratory effort Cardiovascular: Rate/Rhythm: regular rate Gastrointestinal (Abdomen): normal bowel sounds, soft, nontender, no hepatosplenomegaly Skin: no rashes, warm and dry Results & Data Results & Data Vital Signs (Past 12 Hours) Vital Signs Temp Pulse Pulse Resp BP Pulse Ox O2 Del Method 09/18/24 07:30 81 09/18/24 07:23 Room Air 09/18/24 07:01 37.1 C 68 19 181/82 H 95 Room Air 09/18/24 03:16 37.1 C 79 18 133/75 95 Room Air 09/17/24 22:57 37.1 C 85 20 136/57 L 94 Room Air 09/17/24 22:51 Room Air Laboratory Results 09/18/24 09/17/24 09/17/24 Range/Units 06:25 22:27 14:48 WBC 7.85 (4.8-10.8) K/ul RBC 3.18 L (4.70-6.10) M/uL Hgb 9.6 L 9.7 L 9.6 L (14.0-18.0) g/dl Hct 28.3 L 28.5 L 28.7 L (42.0-52.0) % MCV 89.0 (80.0-100.0) fL MCH 30.2 (25.0-34.0) pg MCHC 33.9 (32.0-36.0) g/dL RDW Std Deviation 42.5 (36.4-46.3) fL RDW Coeff of Tristen 13.1 (11.5-14.5) % Plt Count 284 (130-400) K/uL MPV 10.2 (9.4-12.4) fL Sodium 141 (136-145) mmol/L Potassium 4.0 (3.5-5.1) mmol/L Chloride 107 (98-107) mmol/L Carbon Dioxide 26 (21-32) mmol/L Anion Gap 8 (3-11) BUN 22 (6-23) mg/dl Creatinine 1.23 (0.6-1.4) mg/dl Est Cr Clr Drug Dosing 56.1 ml/min eGFR 60.84 BUN/Creatinine Ratio 17.9 (10-20) Glucose 125 H (70-99(Fasting)) mg/dl Calcium 8.8 (8.6-10.3) mg/dl Crossmatch 09/14/24 Range/Units 18:27 WBC (4.8-10.8) K/ul RBC (4.70-6.10) M/uL Hgb (14.0-18.0) g/dl Hct (42.0-52.0) % MCV (80.0-100.0) fL MCH (25.0-34.0) pg MCHC (32.0-36.0) g/dL RDW Std Deviation (36.4-46.3) fL RDW Coeff of Tristen (11.5-14.5) % Plt Count (130-400) K/uL MPV (9.4-12.4) fL Sodium (136-145) mmol/L Potassium (3.5-5.1) mmol/L Chloride (98-107) mmol/L Carbon Dioxide (21-32) mmol/L Anion Gap (3-11) BUN (6-23) mg/dl Creatinine (0.6-1.4) mg/dl Est Cr Clr Drug Dosing ml/min eGFR BUN/Creatinine Ratio (10-20) Glucose (70-99(Fasting)) mg/dl Calcium (8.6-10.3) mg/dl Crossmatch See Detail PG Care Time/CCT Total # of Minutes Spent Total Time Spent with Patient: Total time spent is greater than 50% in coordination of care (as documented) at patient's floor/unit and/or counseling patient: Coding Level of Care Code 87286 SUB INP/OBS CARE 2/35MIN Diagnoses Anemia D62 Anemia type: other cause Other causes of anemia: acute posthemorrhagic (1) Anemia Anemia type: other cause Other causes of anemia: acute posthemorrhagic Qualified Code(s): D62 - Acute posthemorrhagic anemia
[2024-09-18 10:43] VITALS: BP 163/83; PULSE 86; TEMP 98.6; O2SAT 94
[2024-09-18] MEDS: PANTOprazole 40 MG TAB PO SCH (11:42)
--- NOTE | 2024-09-19 16:41 | Discharge Summary ---
Date of Service September 18, 2024 Admission HPI Per Admitting Provider Robbin is a 74-year-old male with PMH of atrial flutter (on Eliquis), GERD, COPD, GI bleed, and tobacco use disorder. He presented for productive cough, and acute onset of coffee-ground emesis on 09/14. Patient also reports that he developed shaking and chills x 1 hour. He has had black/bloody bowel movements since intermittently since he was in [place]. When asked when he was in [place], he reports it was May, however believes it may have been July. When asked why he was in [place], he reports "to see how long I am going to live". He reports he had a colonoscopy in [place], but is unsure what it showed. He is unsure if he had an endoscopy in [place]. Patient reports that he took his regular morning medicines today including his aspirin and Eliquis. He takes Eliquis for history of atrial flutter. No history of A-fib to his knowledge. No history of blood clots. Patient's stent was placed in 2016. He believes he does have a history of blood transfusions when he had open heart surgery several years back. He does not wear supplemental oxygen at baseline; no CPAP at night. Patient reports he has been taking olbe-emh-vhdlydm medications for his cough; NyQuil. He is also taking lozenges for his sore throat. He reports no known medication allergies. Patient is febrile at 38.3 C at time of admission; SpO2 93% on 2 L NC. ED course: NSS 1000 mL IV DuoNeb 3 mL Acetaminophen 1000 mg IV Cefepime 2000 mg IV Pantoprazole 80 mg IV bolus Famotidine 20 mg IV Solu-Medrol 4 mg IV ROS: Patient endorses fever, chills, shaking, productive cough (yellow), dark/tarry stool, nausea/vomiting x 1 this morning (coffee-ground emesis), or diarrhea. Patient denies dizziness, lightheadedness, headaches, chest pain, chest palpitations, pleuritic CP, SOB at rest, WEST, hemoptysis, abdominal pain, blood in urine, or burning with urination. Please see Dr. Esteves's attestation for any changes to treatment plan. Admission Exam Per Admitting Provider General: Mild respiratory distress; non-toxic appearing; well-nourished; cooperative; SpO2 93% on 2L NC HEENT: normocephalic, atraumatic; no scleral icterus; PERRLA w/ EOMs intact; vision and hearing grossly intact Neck: supple; no lymphadenopathy; trachea midline Skin: Hematoma noted on the anterior aspect of the left ankle; warm, dry without signs of tenting; no cyanosis; no rashes, bruising, lesions, or erythema noted CV: chest wall NTP; RR, tachycardic around 100 bpm; S1/S2 normal; 2/6 systolic ejection murmur auscultated at the second ICS MCL; pulses intact and symmetric at radial, DP, and PT Lungs: Mild respiratory distress; symmetrical chest wall expansion; inspiratory rhonchi auscultated across all lung ba bilaterally (R>L) ABD: Soft, NTP in all 4 quadrants; BS present; no rebound/guarding; no distention; no rashes or bruising noted on the abdomen or flanks bilaterally MSK: no tics or fasciculations; no edema noted in the LEs b/l, nonerythematous Neuro: A&Ox3; normal mood and affect; fluent speech; no focal deficits; sensation grossly intact in the LEs b/l Principal Diagnosis Lula-Snider tear, upper GI bleed Discharge Exam Constitutional WD/WN, vitals as above Respiratory normal respiratory effort, lungs clear to auscultation Auscultation: lungs clear to auscultation bilaterally and + wheezes (expiratory wheezing noted in anterior and posterior lungs); no crackles Cardiovascular Rate/Rhythm: regular rate and regular rhythm Heart Sounds: + murmur (noted on upper sternal border, r. and l. side) Extremities: no calf tenderness and no pedal edema Gastrointestinal (Abdomen) normal bowel sounds, soft, nontender, no hepatosplenomegaly Psychiatric A+Ox3, euthymic affect Discharge Data Allergies Allergy/AdvReac Type Severity Reaction Status Date / Time No Known Drug Allergies Allergy Verified 09/14/24 19:05 Consultations 09/14/24 18:34 ED Decision to Admit Stat 09/14/24 22:44 Consult Gastroenterology Routine Procedures Performed Operation Date: 09/16/24 17:25 Actual Procedures p EGD Hemostasis - Preet Burroughs MD Ordered Studies 09/14/24 19:03 CTA chest w con [CT angio chest w con] Stat Hospital Course (1) Upper GI bleed: (2) Sepsis: (3) Right lower lobe pneumonia: (4) CAD (coronary artery disease), [place] coronary artery: (5) History of atrial flutter: (6) Rhinovirus infection: (7) Enterovirus infection: (8) History of tobacco use disorder: Plan Patient is a 74 yo M w/ PMHx of atrial flutter (on Eliquis), GERD, COPD, 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 1) Upper GI bleed/Lula Snider Tear - Patient reported coffee ground emesis on the morning of 09/14 and melena - Hgb, 9.6 <-- 8.8 <-- 9.3 <-- 8.4 <-- 10.4 on arrival - Blood consent form obtained in the ED; 4 units on hold - Protonix drip: 8 mg/hr, IV, q5hr during inpatient stay - Continue trending H&H q8h through 09/17, 22:00. CBC AM labs afterwards - GI consulted EGD found MWT (Lula-Snider tear) in lower esophagus, two hemoclips placed Patient placed on clear liquid diet this morning, advance as tolerated History of small bowel AVM (pt could not confirm) but confirmed in [facility] chart - Pulse, and Hgb have all been WNL since hemoclip repair of MWT, BP's have been moderately elevated - Patient discharged on Protonix, 40 mg, PO, BID - F/U appt with Gastroenterology scheduled as outpt 2) RLL pneumonia (met SIRS criteria at admission) - Leukocytosis, 8.1 <-- 11.4 <-- 22.3 <-- 17.0 (at time of admission), improving - given clinical stability, one day spike likely due to dose of Methylprednisolone 40 mg IV given in the ED. Monitor w/ CBC. - No fevers, Blood cultures pending, no growth after 48 hrs - Lactate of 1.0; procalcitonin of 0.37 - Biofire positive for Entero-/rhinovirus, MRSA nares negative - CXR and CTA showed RLL pneumonia - Continue Ceftriaxone + azithromycin during hospital stay - Supplemental oxygen as needed to maintain SpO2 >94% - Patient discharged on azithromycin, 250 mg, PO, daily for 2 more days - Patient discharged on cefdinir, 300 mg, PO, BID for 7 more days 3) Atrial Fibrillation/Flutter - Hold Eliquis and metoprolol succinate during hospital stay - Restart metoprolol succinate upon discharge - Hold Eliquis upon discharge until F/U CBC confirms improvement of anemia without any recurrent bleeding 4) COPD - Continue Arnuity (fluticasone) and Anoro (LAMA + LABA) inhaler 5) CAD - Stent x 1 in 2016 - Held aspirin, 81 mg, PO, AM during end of hospital stay - Hold aspirin upon discharge until F/U CBC confirms improvement of anemia without any recurrent bleeding Total Time Total Time Spent Total Time Spent (In Minutes): 38 minutes Discharge Plan Discharge Items Patient Disposition: Home - Self-Care Reason For Visit: UGI BLEED, ANEMIA Discharge Diagnosis: Lula Snider tear Condition on Discharge: Serious Activity: Resume your previous activity Non-emergency contact: Primary Care Provider and Artificial Te[employer] Inspector Call non-emergency contact if: you have any medication questions and your symptoms worsen Follow-up/Referrals: Megan Adorno [Primary Care Provider] - 09/25/24 4:05 pm (Scheduled with Corry Marley PA-C on 09/25/24 at 4:05 pm.) Diet: Low Fiber and Finger Foods Addtl Attending Provider Instructions: You were admitted to the hospital for an uppper GI bleed. You were treated with a hemoclip of the esophageal tear, Protonix, and antibiotics. A discharge summary will be sent to your primary care physician to ensure continuity of care. Please bring this discharge summary with you to your next office appointment so that your provider can review it at that time. Follow-up appointments: We have requested a follow-up appointment with your primary care physician within one week of discharge. Please call their office if you do not hear from them. Keep all your follow-up appointments as already scheduled. If you cannot make an appointment, notify your provider. Medications: Your medication list has been reviewed and reconciled upon discharge to ensure accuracy and continuity of care. An updated list of all your medications is included with your hospital discharge paperwork. Please review this list closely, and make note of any changes. We sent a new medication called pantoprazole to your pharmacy. Take pantoprazole, 40 mg, twice a day for 6-8 weeks. We sent a new medication called azithromycin to your pharmacy. Take azithromycin, 250 mg, daily, for 2 more days. We sent a new medication called cefdinir to your pharmacy. Take cefdinir, 300 mg, twice a day, for 7 more days. We want you to hold your Eliquis until we re-check your hemoglobin in approximately a week. Take your medications as instructed; do not skip a dose of your medicines. Make sure all of your doctors know every medicine you are taking (including vidq-wqp-gaigrsu medicines, vitamins, and supplements). Call your primary care provider before taking any new medicines (including ubij-ies-uudgeef medicines, vitamins, and supplements), because some of these may interact with your current medications, or may make your symptoms worse. Tell your primary care provider if you cannot afford your medications. CONTACT YOUR PRIMARY CARE PROVIDER if you experience any of the following: vomiting or spitting up blood, very dark colored stools Difficulty following your treatment plan, or difficulty taking medications CALL 911 OR GO TO THE EMERGENCY DEPARTMENT if you experience any of the following: Sudden, severe abdominal pain or nausea/vomiting Severe chest pain, or chest pain that radiates (moves) to your jaw or arm Sudden, severe shortness of breath or difficulty breathing Thank you for allowing us to participate in your care Pending Studies at Discharge: No Stand-Alone Forms: My [facility], Smoking Cessation Medications and DC Order Prescriptions: New pantoprazole 40 mg tablet,delayed release (DR/EC) 40 mg PO BID 30 Days Qty: 60 0RF azithromycin 250 mg tablet 250 mg PO DAILY 2 Days Qty: 2 0RF Rx Instructions: start on day 2 of therapy cefdinir 300 mg capsule 300 mg PO BID 7 Days Qty: 14 0RF Continued Trelegy Ellipta 100-62.5-25 mcg blister with device 1 inh inhalation DAILY Qty: 180 3RF rosuvastatin 40 mg tablet 40 mg PO HS sertraline 50 mg tablet 50 mg PO DAILY metoprolol succinate 25 mg Tablet Extended Release 24 Hr 25 mg PO HS Rx Instructions: FILLED 04/05/22 albuterol sulfate 90 mcg/actuation Hfa Aerosol Inhaler 2 puff INHALATION BID lisinopril 10 mg Tablet 10 mg PO QAM Held Eliquis 5 mg tablet 5 mg PO BID Hold Instructions: Until your PCP re-checks your hemoglobin in about a week aspirin [Ashley Chewable Aspirin] 81 mg Tablet,Chewable 81 mg PO QAM Hold Instructions: Hold until your PCP re-checks your hemoglobin in about a week. Discharge Orders: Discharge Order (Routine); Ordered 09/18/24 Ordered By: Ino Matson Admission Data Admit Date/Time: 09/14/24 20:44 Attending Provider: Malik Hercules Admit Provider: Jonas Das Primary Care Provider: Megan Adorno Other Providers: Dion Robbins. Other Interventions: Discharge Summary Assessment (RN) Last Done: 09/18/24 14:56 Supervising Physician Co-Signing Physician Notes ATTESTATION I also saw the patient with Dr. Matson and confirmed suazo portions of the history and exam. I agree with the impression and plan as noted in the resident documentation, and as summarized below. HgB stable. Tolerating diet with difficulty. EXAM VS reviewed. Alert and oriented. Heart regular rate and rhythm lungs clear throughout with mild labored respirations DATA Labs hemoglobin 9.6 BMP unremarkable Micro Blood cultures collected 09/14/2024 showed no growth 48 hours IMPRESSION & PLAN Acute blood loss anemia Lula-Snider tear status post EGD with clipping GI consultation appreciated Continue PPI BID He will continue to advance diet at home; smaller more frequent meals suggested CBC early next week to assure stability pneumonia, right lower lobe Complete course of erythromycin and cefdinir history of atrial fibrillation/flutter Hold Eliquis until repeat CBC assures stability, and follow-up with PCP 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 Additional per resident documentation
== END 2024-09-18 16:06 | disposition home or self-care (01) | DRG 871 ==
LOC: ED 16:42 → SUATTDRO 20:44 → 2S 20:44
DX: J44.0 Chronic obstructive pulmonary disease with (acute) lower respiratory infection; D62 Acute posthemorrhagic anemia; K92.1 Melena; I25.2 Old myocardial infarction; K22.6 Gastro-esophageal laceration-hemorrhage syndrome; Z79.01 Long term (current) use of anticoagulants; Z79.82 Long term (current) use of aspirin; K21.9 Gastro-esophageal reflux disease without esophagitis; Z87.891 Personal history of nicotine dependence; Z95.2 Presence of prosthetic heart valve; N18.9 Chronic kidney disease, unspecified; B34.8 Other viral infections of unspecified site; I25.10 Atherosclerotic heart disease of native coronary artery without angina pectoris; J18.9 Pneumonia, unspecified organism; I48.92 Unspecified atrial flutter; A41.9 Sepsis, unspecified organism; K92.0 Hematemesis

== ENCOUNTER 2024-12-23 11:08 | Inpatient (IN) ==
[2024-12-23 11:44] LABS: Basophils # (auto) 0.04 K/uL (0.00-0.20); Basophils % (auto) 0.3 %; Eosinophils # (auto) 0.06 K/uL (0.00-0.50); Eosinophils % (auto) 0.5 %; Hematocrit (blood only) 29.7 % (42.0-52.0); Hemoglobin 9.4 g/dl (14.0-18.0); Immature Granulocytes # (auto) 0.07 K/uL (0.01-0.20); Immature Granulocytes % (auto) 0.6 %; Lymphocytes # (auto) 0.62 K/uL (1.20-3.40); Lymphocytes % (auto) 5.3 %; Mean Corpuscular Hemoglobin 28.1 pg (25.0-34.0); Mean Corpuscular Hgb Conc 31.6 g/dL (32.0-36.0); Mean Corpuscular Volume 88.7 fL (80.0-100.0); Mean Platelet Volume 10.2 fL (9.4-12.4); Monocytes # (auto) 1.22 K/uL (0.11-0.59); Monocytes % (auto) 10.4 %; Neutrophils % (auto) 82.9 %; Platelet Count 313 K/uL (130-400); RDW Coefficient of Variation 16.6 % (11.5-14.5); RDW Standard Deviation 53.9 fL (36.4-46.3); Red Blood Count 3.35 M/uL (4.70-6.10); White Blood Count 11.71 K/ul (4.8-10.8)
[2024-12-23 12:02] LABS: Alanine Aminotransferase 9 U/L (7-52); Albumin Globulin Ratio 1.3 (0.9-2); Albumin Level 4.1 gm/dl (3.4-5.0); Alkaline Phosphatase 47 U/L (34-104); Anion Gap 9 (3-11); Aspartate Aminotransferase 13 U/L (13-39); BUN Creatinine Ratio 22.1 (10-20); Bilirubin,Total 1.5 mg/dl (0.2-1.0); Blood Urea Nitrogen 43 mg/dl (6-23); Calcium 9.8 mg/dl (8.6-10.3); Carbon Dioxide 26 mmol/L (21-32); Chloride 100 mmol/L (98-107); Globulin 3.2 gm/dl (2.5-4.0); Glucose 126 mg/dl (70-99(Fasting)); Potassium 3.9 mmol/L (3.5-5.1); Sodium 135 mmol/L (136-145); Total Protein 7.3 gm/dl (6.0-8.3)
[2024-12-23 12:59] LABS: Adenovirus PCR Not Detected (NotDetected); Bordetella parapertussis PCR Not Detected (NotDetected); Bordetella pertussis PCR Not Detected (NotDetected); Chlamydia pneumoniae PCR Not Detected (NotDetected); Coronavirus 229E PCR Not Detected (NotDetected); Coronavirus CoV-2 (COVID19)PCR Not Detected (NotDetected); Coronavirus HKU1 PCR Not Detected (NotDetected); Coronavirus NL63 PCR Not Detected (NotDetected); Coronavirus OC43PCR DETECTED (NotDetected); Human Metapneumovirus PCR Not Detected (NotDetected); Influenza A PCR Not Detected (NotDetected); Influenza B PCR Not Detected (NotDetected); Mycoplasma pneumoniae PCR Not Detected (NotDetected); Parainfluenza Virus 1 PCR Not Detected (NotDetected); Parainfluenza Virus 2 PCR Not Detected (NotDetected); Parainfluenza Virus 3 PCR Not Detected (NotDetected); Parainfluenza Virus 4 PCR Not Detected (NotDetected); Respiratory Syncytial VirusPCR Not Detected (NotDetected); Rhinovirus/Enterovirus PCR Not Detected (NotDetected)
--- NOTE | 2024-12-23 13:01 | XRay Report ---
XR chest 1V not portable CLINICAL HISTORY: hypotension COMPARISON STUDY: 11/27/2024 FINDINGS: Stable cardiac valve repair. Heart size and pulmonary vasculature are normal. Stable mildly hyperexpanded lungs. There is an interval small area of faint patchy opacity right lower lung perihi lar region. No other consolidation or pleural effusion. No pneumothorax. IMPRESSION: Early pneumonia on the right. ACT 112: Negative or not required by law. Electronically signed by: Juan Alberto Bonilla M.D. 12/23/2024 12:59 PM
[2024-12-23] MEDS: SODIUM CHLORIDE 0.9% 1,000 ML IV ONE ×2 (13:07→17:49)
--- NOTE | 2024-12-23 13:19 | Emergency Department Note ---
Impression & Plan Coronavirus infection, unspecified, Pneumonia, TISHA (acute kidney injury), COPD (chronic obstructive pulmonary disease) ED Provider Note NAME: LILIANA PEREZ AGE: 74 SEX: M : 1950 ARRIVES VIA: Walk-In INFORMANT: Patient ED PROVIDER(S): Omero Borges MD CHIEF COMPLAINT: Cough, dizziness. PLAN: Disposition: Admit MEDICAL DECISION MAKING: The patient is a pleasant 74-year-old [employer] gentleman with a past medical history of COPD, pneumonia, hypertension, hyperlipidemia paroxysmal atrial flutter on qu who presents to the emergency department via walk-in for evaluation of cough, congestion, dizziness that has been ongoing since reports feeling feverishness, poor appetite with with poor oral intake and chills. He reports feeling increasingly lightheaded when he stands up and felt blurred vision. He reports having some loose stools over the weekend but denies any diarrhea today. He denies vomiting. He denies chest pain or shortness of breath. He denies any urinary symptoms. He reports generalized headache. Denies recent falls but did fall a couple of months ago onto his left hip and had negative xrays per the patient. He left leg bruising has significantly improved but still some residual is present. On evaluation patient is fatigued appearing but no distress, afebrile with blood pressure 80s/40s and triage and vital signs otherwise stable. Blood pressure did improve with IV fluid hydration. He appears clinically dry. Lungs with intermittent wheeze and are otherwise clear with normal respiratory effort. Abdomen is benign. EKG without overt acute ischemia. Chest x-ray with suspicion of early right lower lobe pneumonia. WBC 11K with neutrophilia but no left shift. H/H 9.4/29.7 with MCV of 88, similar to recent range values and stable following recent admission for GI bleeding. Chemistry without metabolic acidosis. Creatinine is 1.95 with BUN of 43 with BUN/creatinine of 22 consistent with the patient's clinical dry appearance and likely dehydration in the setting of respiratory illness. Totalbilirubin 1.5, similar to prior and LFTs otherwise normal. Procalcitonin is not elevated. TSH within normal limits. Respiratory BioFire was positive for coronavirus OC 43. On re-evaluation patient did feel improved following IV fluid hydration and IV APAP. He did agree with and prefer trial of outpatient management with plan to repeat kidney function in the next 48 hours out of caution CT of the head was obtained for ongoing headache in the setting of being on Eliquis for history of a flutter and CT abdomen/pelvis due to TISHA likely related to dehydration. Given consolidation on imaging treatment for CAP was initiated for possible bacterial coinfection. Treatment initiated with IV ceftriaxone and azithromycin. CT of the head and CT abdomen pelvis were negative for acute abnormalities. However, following reassessment the patient did report changing his mind and preferred admission at this time. CURB 65 high risk. Case was discussed with Dr. Malloy, [facility] hospitalist, who will evaluate the patient for admission. Triage Nursing notes reviewed and agree them. Prior/external medical records reviewed Vital Signs: reviewed Differential diagnosis: Infection, dehydration, metabolic abnormality, hypo/hyperglycemia, electrolyte disturbance, anemia, hypoxia, cardiac sources, intracerebral event, toxicologic, neurologic, as well as other pathologies. ER treatment provided: See below. Diagnostics interpreted by me: ECG: Sinus rhythm with first-degree block, 82 bpm, no ectopy, no overt ST elevation or depression, QTc 462, cures 112. Cardiac Monitoring: An order for continuous cardiac monitoring was placed and demonstrated Sinus rhythm with first-degree block, 82 bpm, no ectopy. Laboratory studies: See below Imaging studies: See below Consultation(s): Dr. Malloy [facility] hospitalist. HPI: The patient is a pleasant 74-year-old [place] gentleman with a past medical history of COPD, pneumonia, hypertension, hyperlipidemia paroxysmal atrial flutter on Eliquis who presents to the emergency department via walk-in for evaluation of cough, congestion, dizziness that has been ongoing since day reports feeling feverishness, poor appetite with with poor oral intake and chills. He reports feeling increasingly lightheaded when he stands up and felt blurred vision. He reports having some loose stools over the weekend but denies any diarrhea today. He denies vomiting. He denies chest pain or shortness of breath. He denies any urinary symptoms. He reports generalized headache. Denies recent falls but did fall a couple of months ago onto his left hip and had negative xrays per the patient. He left leg bruising has significantly improved but still some residual is present. ROS: See above HPI for pertinent positives & negatives. A total of 10 systems reviewed and were otherwise negative. VITALS:See Below PHYSICAL EXAMINATION: GENERAL: Awake, alert, fatigued-appearing, in no distress HENT: Normocephalic, atraumatic. Oropharynx with dry mucous membranes and otherwise unremarkable. EYES: Normal conjunctiva. Sclera non-icteric. NECK: Supple. No nuchal rigidity. FROM. No JVD. RESPIRATORY: Intermittent wheeze bilaterally and otherwise clear to auscultation with normal respiratory effort. CARDIAC: Regular rate, normal rhythm. Extremities warm and well perfused. Pulses equal. ABDOMEN: Soft, non-distended. No tenderness to palpation. No rebound or guarding. No masses. MUSCULOSKELETAL: Chest examination reveals no tenderness. The back is symmetrical on inspection without obvious abnormality. There is no CVA tenderness to palpation. No joint edema. Sub-acute/remote resolving ecchymosis of the left hip region and leg. LOWER EXTREMITIES: Calves are equal size bilaterally and non-tender. No edema. No discoloration. NEURO: Normal sensorium. No sensory or motor deficits noted. CNII-XII grossly intact. 5/5 strength and SILT x 4 extremities. Cerebellar function intact including [id number]-[id number], alternating palms, [id number]. SKIN: No rash or jaundice noted. Omero Borges MD Past Med/Surg History Problem List (Updated 12/24/24 @ 07:39 by Omero Borges MD) Fall from standing History of CVA (cerebrovascular accident) CKD stage 3a, GFR 45-59 ml/min COPD (chronic obstructive pulmonary disease) (Acute) TISHA (acute kidney injury) (Acute) Pneumonia (Acute) Coronavirus infection, unspecified (Acute) Sepsis Rhinovirus infection (Acute) Upper GI bleed Vomiting (Acute) Anemia (Acute) COPD exacerbation (Acute) Pneumonia (Acute) SOB (shortness of breath) (Acute) GI bleed (Acute) Right lower lobe pneumonia Wears hearing aid in both ears Phonak L50R disp 02/2023 Does not have health insurance COPD, group B, by GOLD 2017 classification Periorbital ecchymosis of left eye Encounter for pre-operative examination Cholesteatoma of attic of left ear Perforation of left tympanic membrane Mixed hearing loss, bilateral Medical History History of atrial flutter 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 SNHL, :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 History of tobacco use disorder GERD (gastroesophageal reflux disease) Tinnitus of both ears GI bleed 2019 CAD (coronary artery disease), [place] coronary artery stent x1 (2015) COPD (chronic obstructive pulmonary disease) "Controlled" > follows with [facility] [place] ([phone]) Aortic valve disease s/p AVR- 2018 (echo 10/28/20 with normal appearing bioprosthetic aortic valve and normal transvalvular flow velocities and no AI) History of MA (myocardial infarction) 2016 History of kidney stones CKD (chronic kidney disease) High cholesterol Hypertension Surgical History History of mastoidectomy Left Tympanomastoidectomy - 05/21/[address] Cisneros History of AAA (abdominal aortic aneurysm) repair 2018 History of esophagogastroduodenoscopy (EGD) History of colonoscopy History of heart artery stent stent x1 (2015) History of cardiac cath S/P AVR (aortic valve replacement) 2018 History of cataract extraction History of cholecystectomy History of oral surgery Removal of impacted teeth History of appendectomy H/O thoracic aortic aneurysm repair Family History Mother Stroke Father Bone cancer Other Emphysema lung Lung disease No family history of adverse response to anesthesia No family history of bleeding disorder Social History Smoking Status: Former smoker Tobacco Type: Cigarettes Age Started Using Tobacco: 50; Age Quit Using Tobacco: 65; packs per day: 1; Second Hand Exposure: No; Do You Dip or Chew Tobacco: No; Tobacco Cessation Education Requested by Patient: No Hx Alcohol Use: No Hx Substance Use: No Preferred Language: Icelandic Communication Ability: Effective Claims Investigator Required: No Beliefs That Will Affect Care: None marital status: Current Living Situation: Spouse and Family Current Living Situation Comment: With Brother//Family current occupational status: employed current occupation: [employer] Other Information That Helps Us Care for You: No Feels Safe at Home: Yes Safety Concerns: Feels Safe At This Time Assistive Devices: Hospital Bed and Walker Assistive Devices Comment: Patient states he uses a walker at home at times. Allergies Allergies Allergy/AdvReac Type Severity Reaction Status Date / Time No Known Drug Allergies Allergy Verified 12/06/24 08:35 Home Meds Home Medications Medication Instructions Recorded Confirmed albuterol sulfate 90 mcg/actuation 2 puff inhalation BID 02/04/20 12/23/24 aerosol inhaler metoprolol succinate 25 mg 25 mg PO HS 02/04/20 12/23/24 tablet,extended release 24 hr aspirin 81 mg chewable tablet 81 mg PO QAM 05/05/21 12/23/24 (Ashley Chewable Low Dose Aspirin) lisinopril 10 mg tablet 10 mg PO QAM 05/05/21 12/23/24 rosuvastatin 40 mg tablet 40 mg PO HS 04/27/23 12/23/24 sertraline 50 mg tablet 50 mg PO DAILY 04/27/23 12/23/24 apixaban 5 mg tablet (Eliquis) 5 mg PO UD 05/17/24 12/23/24 chlorthalidone 25 mg tablet 25 mg PO UD 12/23/24 12/23/24 Previous Rx's Medication Instructions Recorded fluticasone fur. 100 mcg-umeclid 1 inh inhalation DAILY #180 ea 08/23/24 62.5 mcg-vilant 25 mcg inhalat.powder (Trelegy Ellipta) Results & Data (ED) Vital Signs Vital Signs - 24 hr 12/23/24 11:13 12/23/24 13:02 12/23/24 13:52 Temperature 36.7 C Temperature Source Temporal Artery Scan Pulse Rate 84 67 Pulse Rate [Left Finger] 51 L Pulse Rhythm Regular Pulse Strength Normal Respiratory Rate 20 16 Respiratory Effort / Characteristics Non-Labored Spontaneous Respiratory Depth Normal Blood Pressure 85/48 L Blood Pressure [Right Arm] 110/50 L Blood Pressure Mean 60 Blood Pressure Mean [Right Arm] 70 Blood Pressure Position Sitting Blood Pressure Position [Right Arm] Sitting Pulse Oximetry 92 96 Oxygen Delivery Method Room Air Sepsis Recent Fever Within 48 Hours No Sepsis New/Unexplained Change in Mental Status N/A Sepsis Action Taken by Nursing No Action Required 12/23/24 14:56 12/23/24 17:03 12/23/24 18:15 Temperature Temperature Source Pulse Rate 68 Pulse Rate [Left Finger] 77 78 Pulse Rhythm Pulse Strength Respiratory Rate 20 18 Respiratory Effort / Characteristics Respiratory Depth Blood Pressure Blood Pressure [Right Arm] 121/62 143/82 H Blood Pressure Mean Blood Pressure Mean [Right Arm] 81 102 Blood Pressure Position Blood Pressure Position [Right Arm] Pulse Oximetry 95 96 Oxygen Delivery Method Room Air Sepsis Recent Fever Within 48 Hours Sepsis New/Unexplained Change in Mental Status Sepsis Action Taken by Nursing 12/23/24 19:00 12/23/24 21:00 12/23/24 22:00 Temperature Temperature Source Pulse Rate Pulse Rate [Left Finger] 63 60 72 Pulse Rhythm Pulse Strength Respiratory Rate 18 16 20 Respiratory Effort / Characteristics Respiratory Depth Blood Pressure Blood Pressure [Right Arm] 147/67 H 105/52 L 145/65 H Blood Pressure Mean Blood Pressure Mean [Right Arm] 93 69 91 Blood Pressure Position Blood Pressure Position [Right Arm] Pulse Oximetry 95 95 95 Oxygen Delivery Method Room Air Room Air Room Air Sepsis Recent Fever Within 48 Hours Sepsis New/Unexplained Change in Mental Status Sepsis Action Taken by Nursing Laboratory Data Attestation: I reviewed the patient's lab results. 12/24/24 06:02 12/24/24 06:02 Lab Results 12/23/24 Range/Units 11:28 WBC 11.71 H (4.8-10.8) K/ul RBC 3.35 L (4.70-6.10) M/uL Hgb 9.4 L (14.0-18.0) g/dl Hct 29.7 L (42.0-52.0) % MCV 88.7 (80.0-100.0) fL MCH 28.1 (25.0-34.0) pg MCHC 31.6 L (32.0-36.0) g/dL RDW Std Deviation 53.9 H (36.4-46.3) fL RDW Coeff of Tristen 16.6 H (11.5-14.5) % Plt Count 313 (130-400) K/uL MPV 10.2 (9.4-12.4) fL Immature Gran % (Auto) 0.6 % Neut % (Auto) 82.9 % Lymph % (Auto) 5.3 % Kane % (Auto) 10.4 % Eos % (Auto) 0.5 % Baso % (Auto) 0.3 % Neut # (Auto) 9.70 H (1.40-6.50) K/uL Lymph # (Auto) 0.62 L (1.20-3.40) K/uL Kane # (Auto) 1.22 H (0.11-0.59) K/uL Eos # (Auto) 0.06 (0.00-0.50) K/uL Baso # (Auto) 0.04 (0.00-0.20) K/uL Immature Gran # (Auto) 0.07 (0.01-0.20) K/uL Sodium 135 L (136-145) mmol/L Potassium 3.9 (3.5-5.1) mmol/L Chloride 100 (98-107) mmol/L Carbon Dioxide 26 (21-32) mmol/L Anion Gap 9 (3-11) BUN 43 H (6-23) mg/dl Creatinine 1.95 H (0.6-1.4) mg/dl Est Cr Clr Drug Dosing Not Reportable eGFR 35.00 BUN/Creatinine Ratio 22.1 H (10-20) Glucose 126 H (70-99(Fasting)) mg/dl Calcium 9.8 (8.6-10.3) mg/dl Phosphorus 4.2 (2.5-4.9) mg/dl Magnesium 1.7 (1.7-2.4) mg/dl Total Bilirubin 1.5 H (0.2-1.0) mg/dl AST 13 (13-39) U/L ALT 9 (7-52) U/L Alkaline Phosphatase 47 (34-104) U/L Total Protein 7.3 (6.0-8.3) gm/dl Albumin 4.1 (3.4-5.0) gm/dl Globulin 3.2 (2.5-4.0) gm/dl Albumin/Globulin Ratio 1.3 (0.9-2) Procalcitonin 0.41 (0-0.5) ng/ml TSH 1.593 (0.300-4.500) uIu/ml Adenovirus (PCR) Not Detected (NotDetected) B. pertussis DNA (PCR) Not Detected (NotDetected) B.parapertussis DNA PCR Not Detected (NotDetected) C. pneumoniae DNA (PCR) Not Detected (NotDetected) Coronavirus OC43 (PCR) DETECTED A (NotDetected) Coronavirus HKU1 (PCR) Not Detected (NotDetected) Coronavirus 229E (PCR) Not Detected (NotDetected) SARS-CoV-2 (PCR) Not Detected (NotDetected) Coronavirus NL63 (PCR) Not Detected (NotDetected) Human Metapneumovir PCR Not Detected (NotDetected) Influenza Type A (PCR) Not Detected (NotDetected) Influenza Type B (PCR) Not Detected (NotDetected) M. pneumoniae (PCR) Not Detected (NotDetected) Parainfluenza 1 (PCR) Not Detected (NotDetected) Parainfluenza 2 (PCR) Not Detected (NotDetected) Parainfluenza 3 (PCR) Not Detected (NotDetected) Parainfluenza 4 (PCR) Not Detected (NotDetected) RSV (PCR) Not Detected (NotDetected) Entero/Rhino (PCR) Not Detected (NotDetected) Administered Medications Albuterol (Albut/Ipratrop 3mg/0.5mg Neb 3 Ml Vial) 3 ml NEB Q6R [place]; Protocol Stop: 01/23/25 00:59 Last Admin: 12/24/24 07:15 Dose: 3 ml Documented By: Admin: 12/24/24 01:52 Dose: 3 ml Documented By: CHARLEY Apixaban (Apixaban 5 Mg Tablet) 5 mg PO BID [place] Stop: 01/22/25 23:44 Last Admin: 12/24/24 00:18 Dose: 5 mg Documented By: AMBER Lactated Ringer's (Lr) 1,000 mls @ 125 mls/hr IV .Q8H [place] Stop: 12/24/24 07:37 Last Admin: 12/24/24 00:18 Dose: 125 mls/hr Documented By: AMBER Discontinued Medications Albuterol (Albut/Ipratrop 3mg/0.5mg Neb 3 Ml Vial) 3 ml NEB NOW STA; Protocol Stop: 12/23/24 21:23 Last Admin: 12/23/24 21:31 Dose: 3 ml Documented By: RADHA Azithromycin (Azithromycin 250 Mg Tab) 500 mg PO NOW ONE Stop: 12/23/24 17:34 Last Admin: 12/23/24 17:47 Dose: 500 mg Documented By: ANIL Sodium Chloride (Nss) 1,000 mls @ 999 mls/hr IV .Q1H1M ONE Stop: 12/23/24 14:03 Last Infusion: 12/23/24 15:31 Dose: Infused Documented By: Admin: 12/23/24 13:07 Dose: 999 mls/hr Documented By: BABAR Acetaminophen (Ofirmev) 1,000 mg in 100 mls @ 400 mls/hr IV NOW STA Stop: 12/23/24 17:20 Last Infusion: 12/23/24 17:38 Dose: Infused Documented By: Admin: 12/23/24 17:12 Dose: 400 mls/hr Documented By: RADHA Sodium Chloride (Nss) 1,000 mls @ 999 mls/hr IV .Q1H1M ONE Stop: 12/23/24 18:33 Last Infusion: 12/23/24 19:39 Dose: Infused Documented By: Admin: 12/23/24 17:49 Dose: 999 mls/hr Documented By: ANIL Ceftriaxone Sodium (Rocephin) 2,000 mg in 50 mls @ 100 mls/hr IV NOW STA Stop: 12/23/24 18:02 Last Infusion: 12/23/24 18:24 Dose: Infused Documented By: Admin: 12/23/24 17:48 Dose: 100 mls/hr Documented By: ANIL Sodium Chloride (Nss) 1,000 mls @ 125 mls/hr IV .Q8H [place] Stop: 12/24/24 23:37 Last Admin: 12/24/24 00:01 Dose: Not Given Documented By: AMBRE Methylprednisolone (Methylprednisolone 125 Mg/2 Ml Vial) 125 mg IV NOW STA Stop: 12/23/24 17:34 Last Admin: 12/23/24 17:48 Dose: 125 mg Documented By: ANIL Methylprednisolone (Methylprednisolone 125 Mg/2 Ml Vial) 40 mg IV BID STA Stop: 12/23/24 23:39 Last Admin: 12/24/24 00:00 Dose: Not Given Documented By: AMBER Imaging Data Radiologist's Impression: Abdomen/Pelvis CT 12/23/24 17:35 EXAM: CT abd pelvis wo con CLINICAL HISTORY: Acute kidney injury (TISHA) TECHNIQUE: CT of the abdomen and pelvis was performed, with the following protocol: axial images, and reconstructed coronal and sagittal images. No intravenous contrast was administered. One of the following dose reduction techniques was utilized for this exam: Automated exposure control, adjustment of the mA and/or kV according to patient size, and use of iterative reconstruction. COMPARISON: CR 02/04/2020 FINDINGS: Sections of the lower thorax show patchy areas of ground-glass haziness and consolidation along bronchovascular distribution with peribronchial thickening in the visualized right lower lobe, represent infectious focal areas of subpleural haziness in the medial basal segment of the left lower lobe. Centrilobular and paraseptal emphysematous changes with atelectatic changes in both lungs Abdomen: Liver: Normal in size, and density. No focal lesions, cysts, or masses were identified. Gallbladder and Biliary System: Post cholecystectomy status. Pancreas: Pancreatic head, body, and tail are visualized and appear normal in size and density. No pancreatic masses or calcifications were noted. Spleen: Normal in size, shape, and density. Tiny calcifying granulomas. Kidneys and Adrenal Glands: Both kidneys are normal in size. No renal calculi or hydronephrosis. Small cortical cysts on both sides, largest measuring up to 12 mm at mid pole of right kidney. Adrenal glands are unremarkable. Pelvis: Urinary Bladder: Normal in contour and wall thickness. The prostate appears unremarkable. Peritoneal and Retroperitoneal Structures: No free fluid or abnormal fluid collections were identified within the abdomen or pelvis. The abdominal aorta shows atherosclerotic changes with calcified plaques. Bowel: The visualized bowel loops are normal in caliber and appearance, demonstrating fluid and fecal loading. No evidence of bowel obstruction or wall thickening. The appendix is not well delineated. Bones and Soft Tissues: Degenerative changes in lumbar spine, predominantly at L4-L5 and L5-S1 levels. Fat-containing umbilical hernia. IMPRESSION: 1. No definite acute abnormality in CT abdomen and pelvis, within the limitations of plain study 2. Small renal cortical cysts 3. Acute infectious process involving visualized right lung as described above Electronically signed by Osiel Mcduffie 12-23-2024 8:[address] 12/23/24 17:35 EXAM: CT head/brain wo con CLINICAL HISTORY: headache. TECHNIQUE: Axial noncontrast CT scan of the brain was performed from the skull base to the high parietal region. One of the following dose reduction techniques were utilized for this exam: Automated exposure control, adjustment of the mA and/or kV according to patient size, use of iterative reconstruction. COMPARISON: None. FINDINGS: There are tiny ill-defined iso-to hypodense areas noted in the subcortical and periventricular white matter bilaterally, suggestive of microvascular ischemic changes. The ventricular system, cortical sulci and basal cisterns are prominent, consistent with senile changes. The visualized brain parenchyma shows normal appearance. Amato-white matter differentiation is maintained. No midline shifts or deformity. No intracerebral or extra axial hematoma. Normal size and configuration of the cerebral ventricles. Normal CT appearance of the posterior fossa structures, namely the cerebellar hemispheres, brainstem and cerebellar peduncles. The cerebello-pontine angles are clear. The osseous structures in the skull base are unremarkable. Partial opacification of left maxillary sinus. Bilateral mastoid air cells appear unremarkable. Atherosclerotic vascular changes IMPRESSION: No definite acute abnormality in plain CT head at present. Chronic microvascular ischemic changes and senile cortical atrophy. Electronically signed by Osiel Mcduffie 12-23-2024 8:11 PM Discharge Plan Visit Data Chief Complaint: Hypotension Stated Complaint: LOW BP, DIZZINESS, BLURRED VISION, LOW MOBILITY ED Provider: Omero Borges Discharge Problem: Coronavirus infection, unspecified, Pneumonia, TISHA (acute kidney injury), COPD (chronic obstructive pulmonary disease) Patient Disposition: Admitted As Inpatient Discharge Instructions Interventions: ED Discharge Assessment Last Done: 12/23/24 22:52 Discharge Problem: Pneumonia Qualifiers: Pneumonia type: due to unspecified organism Laterality: right Lung location: l ower lobe of lung Qualified Code(s): J18.9 - Pneumonia, unspecified organism COPD (chronic obstructive pulmonary disease) Qualifiers: COPD type: unspecified COPD Qualified Code(s): J44.9 - Chronic obstructive pulmonary disease, unspecified
[2024-12-23 13:37] LABS: Magnesium 1.7 mg/dl (1.7-2.4); Phosphorus 4.2 mg/dl (2.5-4.9)
[2024-12-23 13:53] LABS: Thyroid Stimulating Hormone 1.593 uIu/ml (0.300-4.500)
[2024-12-23] MEDS: ACETAMINOPHEN 1,000 MG/100 ML VIAL IV STA (17:12)
[2024-12-23] MEDS: AZITHROMYCIN 250 MG TAB PO ONE (17:47)
[2024-12-23] MEDS: cefTRIAXone SODIUM 2,000 MG/50 ML BAG IV STA (17:48)
[2024-12-23] MEDS: methylPREDNISolone 125 MG/2 ML VIAL IV STA (17:48)
--- OUTSIDE RECORDS SUMMARY | 2024-12-23 19:54 | External Medical Summary | Continuity of Care Document ---
Author Name Unknown Organization [address] [place] [id number] Care Team Providers Care Commissary Agent Name Role Phone Kimberly Cortez Primary Care Physician [phone] [id number] Date[facility] 12/11/24 - 12/11/24 [facility] 0 [facility] Medical [facility] [address] [facility] [facility], [address] [place] [address] [phone] Encounter Diagnosis Hip pain, left(Discharge Diagnosis) - 12/11/24 Discharge Disposition: Home or Self Care Attending Physician: HANS Marley Kimberly A Encounter Type: Clinic Allergies, Adverse Reactions, Alerts No Known Allergies Assessment and Plan Extracted from: Title:Office Visit Note Author:HANS Marley Kim berly A Date:12/13/24 1.Hip pain, left STATUS:Acute, uncomplicated illness/injury He has fallen twice is the past week or so. Both times he fell, he landed directly on his left hip. He is able to ambulate with his walking stick. Is tender to the touch. He is unable to sleep on his left side. Pain does radiate to his leg. Denies any weakness, numbness or tingling. DATA:Labs reviewed. GOAL:Maintain stability. PLAN:Cont current monitoring. Get xray of the left hip. If unremarkable, suspect more of a severe contusion If symptoms do not continue to improve will refer to orthopedics. Immunizations Given and Recorded Vaccine Date Status Refusal Reason influenza virus vaccine, inactivated 09/25/24 Give n influenza virus vaccine, inactivated 06/24/17 Tim rded pneumococcal 23-valent vaccine 08/12/21 Recorded Medications acetaminophen 500 mg oral tablet Start: 02/28/24 4:02:00 PM EDT, 2 tab, PO, q6h, PRN: fever/mild pain (1-3) Start Date: 02/28/24 Status: Ordered Repeat number: 1 Albuterol (Eqv-ProAir HFA) 90 mcg/inh inhalation aerosol Start: 06/07/24 9:51:00 AM EDT, 2 puff, inhaled, q6h, Disp# 8.5 unknown unit, Refills: 0, WITH [employer]BER., Pharmacy: [facility] [facility] [id number] Start Date: 06/07/24 Status: Ordered Quantity: 8.5 Unit: unknown unit Repeat number: 1 aspirin 81 mg oral delayed release tablet Start: 11/30/17 12:24:00 PM EST, 1 tab, PO, Daily Start Date: 11/30/17 Status: Ordered Repeat number: 1 chlorthalidone 25 mg oral tablet Start: 09/30/24 11:56:00 PM EST, 1 tab, PO, q48h, Disp# 45 tab, Refills: 0, Pharmacy: [facility] [id number] Start Date: 09/30/24 Status: Ordered Quantity: 45.0 Unit: tab Repeat number: 1 doxycycline hyclate 100 mg oral capsule Start: 11/27/24 10:15:00 AM EST, 1 cap, PO, bid, Disp# 14 cap, Pharmacy: [facility] [place] [id number] Start Date: 11/27/24 Stop Date: 12/04/24 Status: Ordered Quantity: 14.0 Unit: cap Repeat number: 1 Eliquis 5 mg oral tablet Start: 04/26/24 2:28:00 PM EDT, 1 tab, PO, bid, Disp# 180 tab, Refills: 3, Pharmacy: [id number] Start Date: 04/26/24 Status: Ordered Quantity: 180.0 Unit: tab Repeat number: 4 lisinopril 20 mg oral tablet Start: 07/11/24 11:13:00 AM EDT Start Date: 07/11/24 Status: Ordered Repeat number: 1 magnesium oxide Start: 02/28/24 11:10:00 AM EDT, Daily Start Date: 02/28/24 Status: Ordered Repeat number: 1 Metoprolol Succinate ER 25 mg oral tablet, extended release Start: 09/30/24 11:56:00 PM EST, 1 tab, PO, Daily, Disp# 90 tab, Refills: 3, do not crush or chew, Pharmacy: [place] [id number] Start Date: 09/30/24 Status: Ordered Quantity: 90.0 Unit: tab Repeat number: 4 Metoprolol Succinate ER 25 mg oral tablet, extended release Start: 09/30/24 3:55:00 PM EST, 1 tab, PO, Daily, Disp# 90 tab, Refills: 3, do not crush or chew, Pharmacy: [place] [id number] Start Date: 09/30/24 Status: Ordered Quantity: 90.0 Unit: tab Repeat number: 4 Nitrostat 0.4 mg sublingual tablet Start: 05/20/22 10:05:00 AM EDT, 1 tab, SL, q5min, Disp# 100 tab, Refills: 1, PRN: as needed for chest pain, Pharmacy: [id number] Start Date: 05/20/22 Stop Date: 07/19/22 Status: Ordered Quantity: 100.0 Unit: tab Repeat number: 2 Indication: Other forms of angina pectoris pantoprazole 40 mg oral delayed release tablet Start: 09/25/24 4:59:00 PM EST, 1 tab, PO, Daily, Disp# 90 tab, Pharmacy: [place] [id number] Start Date: 09/25/24 Stop Date: 12/24/24 Status: Ordered Quantity: 90.0 Unit: tab Repeat number: 1 predniSONE 20 mg oral tablet Start: 11/27/24 10:14:00 AM EST, 3 tab, PO, Daily, Disp# 15 tab, Pharmacy: [place] [id number] Start Date: 11/27/24 Stop Date: 12/02/24 Status: Ordered Quantity: 15.0 Unit: tab Repeat number: 1 rosuvastatin 40 mg oral tablet Start: 06/07/24 9:51:00 AM EDT, 1 tab, PO, qhs, Disp# 90 tab, Refills: 0, Pharmacy: [place] [id number] Start Date: 06/07/24 Status: Ordered Quantity: 90.0 Unit: tab Repeat number: 1 sertraline 50 mg oral tablet Start: 09/30/24 11:56:00 PM EST, 1 tab, PO, Daily, Disp# 90 tab, Refills: 0, Pharmacy: [place] [id number] Start Date: 09/30/24 Status: Ordered Quantity: 90.0 Unit: tab Repeat number: 1 Trelegy Ellipta 100 mcg-62.5 mcg-25 mcg/inh inhalation powder Start: 07/25/24 8:44:00 AM EDT Start Date: 07/25/24 Status: Ordered Repeat number: 1 Red Sotelo 100 mcg-62.5 mcg-25 mcg/inh inhalation powder Start: 11/27/24 9:51:00 AM EST, 1 puff, inhaled, Daily Start Date: 11/27/24 Status: Ordered Repeat number: 1 Mental Status 12/11/24 Barriers to Learning one year None evide nt Mandatory Health Literacy Documentation Yes Health Literacy Communication Barriers N ever Primary Language Icelandic Problem List Condition Confirmation Course Effective Dates [...] Dates Health Status Cl inical Service Informant Hip pain, left Discharge Diagnosis 12/11/24 Non-Specified Procedures Procedure Date Related Diagnosis Body [...] to oldest [Reference Range]: 1 Patient Weight 89.6 kg (12/11/24 3:16 PM) Temperature [36.5-37.9 DegC] 37.0 DegC (12/11/24 3:16 PM) Heart Rate 71 bpm (12/11/24 3:16 PM) Respiratory Rate 20 br/min (12/11/24 3:16 PM) Blood Pressure 114/58mmHg (12/11/24 3:16 PM) Cuff Pulse Pressure 56 mmHg (12/11/24 3:16 PM) Social History Social History Type Response Tobacco Former smoker, Cigar ettes, Cigars, Pipe, 50 year(s). 1 Smoking Status Former Smoker, quit > 1 yr Sex Male Sex Representation Male (finding) 1Quit 2014 [facility] Outpt Note * HANS Marley, Светлана Mays: PERFORM Event Display: [facility] Outpt Note Authored Date: [id number] Assessment/Plan 1.Hip pain, left STATUS:Acute, uncomplicated illness/injury He has fallen twice is the past week or so. Both times he fell, he landed directly on his left hip. He is able to ambulate with his walking stick. Is tender to the touch. He is unable to sleep on his left side. Pain does radiate to his leg. Denies any weakness, numbness or tingling. DATA:Labs reviewed. GOAL:Maintain stability. PLAN:Cont current monitoring. Get xray of the left hip. If unremarkable, suspect more of a severe contusion If symptoms do not continue to improve will refer to orthopedics. Chief Complaint Fell 2 weeks ago then fell again a week later. would like to get imaging done History of Present Illness Patient is a 74yo male presenting for acute visit He has fallen twice is the past week or so. Both times he fell, he landed directly on his lefthip. He is able to ambulate with his walking stick. Is tender to the touch. He is unable to sleep on his left side. Pain does radiate to his leg. Denies any weakness, numbness or tingling. He is on Eliquis for Atrial flutter so bruising is extensive Review of Systems ROS per HPI Physical Exam Vitals & Measurements T:37.0C HR:71(Monitored) RR:20 BP:114/58 SpO2:96% WT:89.600kg(Dosing) WT:89.6kg PHQ2 Data(Data Documented on:12/11/2024 15:14) Emotional health assessment NEGATIVE Ext: Left posterior hip with extensive bruising and tenderness. Moderate swelling over the joint. Patient is Problem List/Past Medical History Ongoing Afib Afib Anxiety Atrial flutter AVM (arteriovenous malformation) of small bowel, acquired Benign essential HTN CAD (coronary artery disease) Centrilobular emphysema Cholesteatoma of attic, left ear Chronic colitis CKD (chronic kidney disease) Conductive hearing loss COPD exacerbation Dupuytren's disease Emphysema/COPD Former smoker Hearing loss, sensorineural History of CVA in adulthood History of detached retina repair History of GI bleed History of kidney stones History of right coronary artery stent placement History of ST elevation myocardial infarction (STEMI) Mass of left side of neck Nodule of lower lobe of left lung Perforation of left tympanic membrane S/P AAA repair S/P ascending aortic aneurysm repair S/P AVR (aortic valve replacement) S/P drug eluting coronary stent placement Tubular adenoma of colon Procedure/Surgical History CT angiography of chest with contrast| Service Date: 2Chest X- ray| Service Date: 2CT of lung screening (low dose)| Service Date: 1Colonoscopy| Service Date: 11/10/2020X-ray of right knee| Service Date: 06/24/2020Low dose CT of chest without contrast| Service Date: 12/11/2019Left Knee X-ray| Service Date: 10/20/2018AAA - Repair of abdominal aorticaneurysm using straight graft| Service Date: 07/01/2018Echocardiogram| Service Date: 06/07/2018CT Head wo contrast| Service Date: 06/06/2018MR Brain wo contrast| Service Date: 06/05/2018CT Angiogram Neck| Service Date: 06/05/2018CT Angiogram Head| Service Date: 06/05/2018Small bowel enteroscopy| Service Date: 11/23/2017Upper GI endoscopy| Service Date: 11/21/2017Echocardiogram| Service Date: 11/10/2017Chest CT| Service Date: 04/06/2017Heart valve replacement| Service Date: 07/01/2016Drug eluting stent| Service Date: 07/01/2016Colonoscopy| Service Date: 04/30/2015X-ray Obstruction Series| Service Date: 12/31/2014Chest x-ray| Service Date: 12/29/2014 Cholecystectomy| Service Date: 12/29/2014CT Abdomen Pelvis w Contrast| Service Date: 12/28/2014 Medications acetaminophen(acetaminophen 500 mg oral tablet), 1000 mg= 2 tab, PO, q6h, PRN albuterol(Albuterol (Eqv-ProAir HFA) 90 mcg/inh inhalation aerosol), 2 puff, inhaled, q6h apixaban(Eliquis 5 mg oral tablet), 5 mg= 1 tab, PO, bid, 3 refills aspirin(aspirin 81 mg oral delayed release tablet), 81 mg= 1 tab, PO, Daily chlorthalidone(chlorthalidone 25 mg oral tablet), 1 tab, PO, q48h doxycycline(doxycycline hyclate 100 mg oral capsule), 100 mg= 1 cap, PO, bid fluticasone/umeclidinium/vilanterol(Trelegy Ellipta 100 mcg-62.5 mcg-25 mcg/inh inhalation powder) fluticasone/umeclidinium/vilanterol(Trelegy Ellipta 100 mcg-62.5 mcg-25 mcg/inh inhalation powder),1 puff, inhaled, Daily lisinopril(lisinopril 20 mg oral tablet) magnesium oxide, Daily metoprolol(Metoprolol Succinate ER 25 mg oral tablet, extended release), 25 mg= 1 tab, PO, Daily, 3refills metoprolol(Metoprolol Succinate ER 25 mg oral tablet, extended release), 25 mg= 1 tab, PO, Daily, 3refills nitroglycerin(Nitrostat 0.4 mg sublingual tablet), 0.4 mg= 1 tab, SL, q5min, PRN, 1 refills pantoprazole(pantoprazole 40 mg oral delayed release tablet), 40 mg= 1 tab, PO, Daily predniSONE(predniSONE 20 mg oral tablet), 60 mg= 3 tab, PO, Daily rosuvastatin(rosuvastatin 40 mg oral tablet), 1 tab, PO, qhs sertraline(sertraline 50 mg oral tablet), 1 tab, PO, Daily Allergies NKA Social History Smoking Status Former Smoker, quit > 1 yr Alcohol - Denies Alcohol Use Other - Comments: Congregational Tobacco - Low Risk Use:Former smoker Type:Cigarettes, Cigars, Pipe Number of years:50 - Comments: Quit 2015 Intake (IView) Smoking History Cigarette smoker: Former Smoker, quit > 1 yr Tobacco Product Use: Never used other tobacco products Total pack years: 20 If past smoker, what year did you quit: 0 What was avg daily use when smokin pk (20 cigarettes) How many total years did you smoke: 20 Family History COPD: Father. Heart attack: Mother. Hypertension: Mother. Stroke: PGM. Type II diabetes mellitus: PGM. Health Status Family Member(s) Immunizations Vaccine Date Status influenza virus vaccine, inactivated 09/25/2024 Given pneumococcal 23-valent vaccine 08/12/2021 Recorded influenza virus vaccine, inactivated 06/24/2017 Recorded Recommendations Health Maintenance Pending(in the next year) Due Adult COVID-19 Vaccination due12/13/24Unknown Frequency Adult Social Determinants of Health Screening due12/13/24Unknown Frequency Adult Tdap/Td Vaccine due12/13/24Unknown Frequency Falls Plan of Care due12/13/24Unknown Frequency Hepatitis C Screening due12/13/24One-time only Medicare Annual Wellness Visit due12/13/24and every 1year Shingles Vaccine due12/13/24One-time only Due In Future Adult Influenza Vaccine not due until04/22/25and every 1year Body Mass Index not due until12/12/25and every Satisfied(in the past 1 year) Satisfied Adult Influenza Vaccine on09/25/24.Satisfied by DESTINEE Carver Paula Body Mass Index on11/27/24.Satisfied by ADINA Adler Kyla Electronic Signature on File Electronically Reviewed/Signed by: Светлана Marley PA-C Author Signature Dt/Tm:12/13/2024 10:17 AM Department of Family Medicine [facility] Patient Care team information Care Team Personnel Name: FAHEEM Shaffer Janet Griffith Position: Nurse Pract - Pulmonary Med Member Role: Lifetime Relationship Address: [address] [place] [id number] Telecom: [phone] Name: DO Cortez Paige M Position: Resident Member Role: Primary Care Provider Address: [address] [facility] [address] [place] [id number] Telecom: [phone] Care Team Related Persons Name: JENNIFER PEREZ Insurance Providers Guarantor name: LILIANA F [facility] Information #: 2 Payer: SELF PAY Member Number: NA Policy Number: NA Group Number: NA"
--- NOTE | 2024-12-23 20:11 | CT Scan Report ---
EXAM: CT head/brain wo con CLINICAL HISTORY: headache. TECHNIQUE: Axial noncontrast CT scan of the brain was performed from the skull base to the high parietal region. One of the following dose reduction techniques were utilized for this exam: Automated exposure control, adjustment of the mA and/or kV according to patient size, use of iterative reconstruction. COMPARISON: None. FINDINGS: There are tiny ill-defined iso-to hypodense areas noted in the subcortical and periventricular white matter bilaterally, suggestive of microvascular ischemic changes. The ventricular system, cortical sulci and basal cisterns are prominent, consistent with senile changes. The visualized brain parenchyma shows normal appearance. Amato-white matter differentiation is maintained. No midline shifts or deformity. No intracerebral or extra axial hematoma. Normal size and configuration of the cerebral ventricles. Normal CT appearance of the posterior fossa structures, namely the cerebellar hemispheres, brainstem and cerebellar peduncles. The cerebello-pontine angles are clear. The osseous structures in the skull base are unremarkable. Partial opacification of left maxillary sinus. Bilateral mastoid air cells appear unremarkable. Atherosclerotic vascular changes IMPRESSION: No definite acute abnormality in plain CT head at present. Chronic microvascular ischemic changes and senile cortical atrophy. Electronically signed by Osiel Mcduffie 12-23-2024 8:11 PM
--- NOTE | 2024-12-23 20:37 | CT Scan Report ---
EXAM: CT abd pelvis wo con CLINICAL HISTORY: Acute kidney injury (TISHA) TECHNIQUE: CT of the abdomen and pelvis was performed, with the following protocol: axial images, and reconstructed coronal and sagittal images. No intravenous contrast was administered. One of the following dose reduction techniques was utilized for this exam: Automated exposure control, adjustment of the mA and/or kV according to patient size, and use of iterative reconstruction. COMPARISON: 02/04/2020 FINDINGS: Sections of the lower thorax show patchy areas of ground-glass haziness and consolidation along bronchovascular distribution with peribronchial thickening in the visualized right lower lobe, represent infectious focal areas of subpleural haziness in the medial basal segment of the left lower lobe. Centrilobular and paraseptal emphysematous changes with atelectatic changes in both lungs Abdomen: Liver: Normal in size, and density. No focal lesions, cysts, or masses were identified. Gallbladder and Biliary System: Post cholecystectomy status. Pancreas: Pancreatic head, body, and tail are visualized and appear normal in size and density. No pancreatic masses or calcifications were noted. Spleen: Normal in size, shape, and density. Tiny calcifying granulomas. Kidneys and Adrenal Glands: Both kidneys are normal in size. No renal calculi or hydronephrosis. Small cortical cysts on both sides, largest measuring up to 12 mm at mid pole of right kidney. Adrenal glands are unremarkable. Pelvis: Urinary Bladder: Normal in contour and wall thickness. The prostate appears unremarkable. Peritoneal and Retroperitoneal Structures: No free fluid or abnormal fluid collections were identified within the abdomen or pelvis. The abdominal aorta shows atherosclerotic changes with calcified plaques. Bowel: The visualized bowel loops are normal in caliber and appearance, demonstrating fluid and fecal loading. No evidence of bowel obstruction or wall thickening. The appendix is not well delineated. Bones and Soft Tissues: Degenerative changes in lumbar spine, predominantly at L4-L5 and L5-S1 levels. Fat-containing umbilical hernia. IMPRESSION: 1. No definite acute abnormality in CT abdomen and pelvis, within the limitations of plain study 2. Small renal cortical cysts 3. Acute infectious process involving visualized right lung as described above Electronically signed by Osiel Mcduffie 12-23-2024 8:35 PM
[2024-12-23] MEDS: ALBUT/IPRATROP 3MG/0.5MG NEB 3 ML VIAL NEB STA (21:31)
--- NOTE | 2024-12-23 22:56 | History & Physical Report ---
Date of Service December 23, 2024 Assessment & Plan (1) TISHA (acute kidney injury): (2) Right lower lobe pneumonia: (3) COPD exacerbation: (4) CKD stage 3a, GFR 45-59 ml/min: (5) History of ND (myocardial infarction): (6) Aortic valve disease: (7) History of atrial flutter: (8) High cholesterol: (9) Hypertension: (10) CAD (coronary artery disease), [place] coronary artery: (11) S/P AVR (aortic valve replacement): (12) History of AAA (abdominal aortic aneurysm) repair: (13) H/O thoracic aortic aneurysm repair: (14) History of CVA (cerebrovascular accident): (15) Fall from standing: (16) GERD (gastroesophageal reflux disease): Plan 74 yo male PMHx afib/flutter on Eliquis, COPD, HTN, HLD, CAD s/p stenting, CKD 3a, CVA, AAA and ascending aorta repair, aortic valve replacement admitted 2/2 to weakness. #PNA/COPD/non-COVID coronavirus Continue CTX and azithromycin Continue Solumedrol 40mg BID Duonebs q6h PRN Mucinex BID Incentive spirometry Continue home inhaler or equivalent No current O2 demand, supplement as necessary for O2 goal 88-92% #TISHA on CKD-IIIa Baseline Cr 1.1-1.2 Likely pre-renal due to dehydration/poor PO intake s/p 2L NSS Will give 1L LR @ 125cc/hr Avoid nephrotoxic agents Trend BMP #Falls/weakness Has had multiple falls in the last month L-thigh/hip hematoma, evaluated and found to not have fracture as an outpatient PT/OT ordered #HTN/HLD/Cardiovascular problems Continue home medications: Eliquis, ASA, chlorthalidone, lisinopril, metoprolol, Crestor #GERD Continue Protonix BID - Started last admission in setting of GI bleed/EGD w/vascular clipping 2/2 leny quintero tear. #Mental health Continue sertraline History of Present Illness Primary Care Provider: Megan Adorno 74 yo male PMHx afib/flutter on Eliquis, COPD, HTN, HLD, CAD s/p stenting, CKD 3a, CVA, AAA and ascending aorta repair, aortic valve replacement admitted 2/2 to weakness. Beginning 12/19/24 the patient was feeling more fatigued and started with cough productive of yellow sputum. He has had poor oral intake. He has felt some dizziness during this time as well. He was seen by PCP 12/23/24 and evaluated. Given his medical history he was referred to the emergency department for evaluation. Initially he was evaluated and was to be discharged home, but later it was decided that he should be admitted. He was hypotensive on presentation to the emergency department and recieved fluids with good response. Overall, at the time of admission he states that he is feeling somewhat better. He continues to have congestion/cough. He has not required oxygen. Of note, he states that he has not been feeling well for about a month and did have at least two falls in the 3rd week of November resulting in hematoma of the L hip. He had radiographs taken that were negative for fracture. ED course: Labs reveal anemia, mild leukocytosis, TISHA (baseline Cr 1.1-1.2, +non-COVID coronavirus CT Head negative for acute pathology CT AP shows patchy ground glass opacities and consolidation in the imaged RLL CXR: shows likely early RLL opacity/consolidation indicating suggestive of early pneumonia; changes indicative of patients known COPD/emphysema Recieved 2L NSS, 125mg solumedrol, ceftriaxone, azithromycin, Tylenol, albuterol neb Allergies Allergy/AdvReac Type Severity Reaction Status Date / Time No Known Drug Allergies Allergy Verified 12/06/24 08:35 Home Medications Medication Instructions Recorded Confirmed Type albuterol sulfate 90 mcg/actuation 2 puff inhalation BID 02/04/20 12/23/24 History aerosol inhaler metoprolol succinate 25 mg 25 mg PO HS 02/04/20 12/23/24 History tablet,extended release 24 hr aspirin 81 mg chewable tablet 81 mg PO QAM 05/05/21 12/23/24 History (Ashley Chewable Low Dose Aspirin) lisinopril 10 mg tablet 10 mg PO QAM 05/05/21 12/23/24 History rosuvastatin 40 mg tablet 40 mg PO HS 04/27/23 12/23/24 History sertraline 50 mg tablet 50 mg PO DAILY 04/27/23 12/23/24 History apixaban 5 mg tablet (Eliquis) 5 mg PO UD 05/17/24 12/23/24 History fluticasone fur. 100 mcg-umeclid 1 inh inhalation DAILY #180 ea 08/23/24 12/23/24 Rx 62.5 mcg-vilant 25 mcg inhalat.powder (Trelegy Ellipta) chlorthalidone 25 mg tablet 25 mg PO UD 12/23/24 12/23/24 History Past Med/Surg History Problem List (Updated 12/24/24 @ 07:39 by Omero Borges MD) Fall from standing History of CVA (cerebrovascular accident) CKD stage 3a, GFR 45-59 ml/min COPD (chronic obstructive pulmonary disease) (Acute) TISHA (acute kidney injury) (Acute) Pneumonia (Acute) Coronavirus infection, unspecified (Acute) Sepsis Rhinovirus infection (Acute) Upper GI bleed Vomiting (Acute) Anemia (Acute) COPD exacerbation (Acute) Pneumonia (Acute) SOB (shortness of breath) (Acute) GI bleed (Acute) Right lower lobe pneumonia Wears hearing aid in both ears Phonak L50R disp 02/2023 Does not have health insurance COPD, group B, by GOLD 2017 classification Periorbital ecchymosis of left eye Encounter for pre-operative examination Cholesteatoma of attic of left ear Perforation of left tympanic membrane Mixed hearing loss, bilateral Medical History History of atrial flutter 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 SNHL, :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 History of tobacco use disorder GERD (gastroesophageal reflux disease) Tinnitus of both ears GI bleed 2019 CAD (coronary artery disease), [place] coronary artery stent x1 (2016) COPD (chronic obstructive pulmonary disease) "Controlled" > follows with [facility] in [place] ([phone]) Aortic valve disease s/p AVR- 2018 (echo 10/28/20 with normal appearing bioprosthetic aortic valve and normal transvalvular flow velocities and no AI) History of ND (myocardial infarction) 2016 History of kidney stones CKD (chronic kidney disease) High cholesterol Hypertension Surgical History History of mastoidectomy Left Tympanomastoidectomy - 05/21/[address] Cisneros History of AAA (abdominal aortic aneurysm) repair 2018 History of esophagogastroduodenoscopy (EGD) History of colonoscopy History of heart artery stent stent x1 (2016) History of cardiac cath S/P AVR (aortic valve replacement) 2018 History of cataract extraction History of cholecystectomy History of oral surgery Removal of impacted teeth History of appendectomy H/O thoracic aortic aneurysm repair Family History Mother Stroke Father Bone cancer Other Emphysema lung Lung disease No family history of adverse response to anesthesia No family history of bleeding disorder Social History Smoking Status: Former smoker Tobacco Type: Cigarettes Age Started Using Tobacco: 50; Age Quit Using Tobacco: 65; packs per day: 1; Second Hand Exposure: No; Do You Dip or Chew Tobacco: No; Tobacco Cessation Education Requested by Patient: No Hx Alcohol Use: No Hx Substance Use: No Preferred Language: Togolese Communication Ability: Effective Picture Painter Required: No Beliefs That Will Affect Care: None marital status: Current Living Situation: Spouse and Family Current Living Situation Comment: With Brother//Family current occupational status: employed current occupation: [employer] Other Information That Helps Us Care for You: No Feels Safe at Home: Yes Safety Concerns: Feels Safe At This Time Assistive Devices: Cane and Wheelchair Assistive Devices Comment: Patient states he uses a walker at home at times. Review of Systems Review of Systems: reviewed, per HPI Physical Exam Physical Exam: Constitutional: well-appearing, no acute distress HEENT: NCAT, no conjunctival injection CV: regular rhythm, +murmur, extremities well-perfused, no LE edema Resp: +decreased breath sounds, +end expiratory wheeze GI: nondistended MSK: no gross deformities appreciated Skin: warm, dry, no rash appreciated Neuro: alert, oriented, no focal neurologic deficit appreciated Results & Data Results & Data Vital Signs (Past 12 Hours) Vital Signs Temp Pulse Pulse Resp BP BP Pulse Ox 12/23/24 22:06 74 12/23/24 22:00 72 20 145/65 H 95 12/23/24 21:00 60 16 105/52 L 95 12/23/24 19:00 63 18 147/67 H 95 12/23/24 18:15 68 12/23/24 17:03 78 18 143/82 H 96 12/23/24 14:56 77 20 121/62 95 12/23/24 13:52 67 12/23/24 13:02 51 L 16 110/50 L 96 12/23/24 11:13 36.7 C 84 20 85/48 L 92 O2 Del Method 12/23/24 22:06 12/23/24 22:00 Room Air 12/23/24 21:00 Room Air 12/23/24 19:00 Room Air 12/23/24 18:15 12/23/24 17:03 Room Air 12/23/24 14:56 12/23/24 13:52 12/23/24 13:02 12/23/24 11:13 Room Air Supervising Physician Co-Signing Physician Notes Patient seen and examined, chart reviewed, case discussed with Dr. Love and I agree with the assessment and plan as above. In brief, patient is a 74yo male presenting with weakness. Found to have pneumonia and non-Covid coronavirus infection. Patient with mild TISHA as well On exam he afebrile, HD stable MMM, neck supple Heart - +S1/S2, regular, no m/r/g Lungs - CTA Abd - soft, NT/ND Labs and images reviewed Assessment/Plan -Ceftriaxone and azithromycin for presumed PNA -Steroids and nebs for COPD exacerbation -Supportive care -Holding home medications for now -Remainder as above Resident Activity Tracking Resident Involvement: Resident Care Provided Care Provided: Adult Hospital Medicine
[2024-12-23] MEDS ORDERED: POLYETHYLENE (MIRALAX) 17 GM PACK PO PRN (23:38)
[2024-12-23] MEDS ORDERED: MAGNESIUM HYDROXIDE SUSP 30 ML UDC PO PRN (23:38)
[2024-12-23] MEDS ORDERED: ACETAMINOPHEN 500 MG TAB PO PRN (23:38)
[2024-12-23] MEDS ORDERED: ALUMINUM/MAGNESIUM SUSP 30 ML UDC PO PRN (23:38)
[2024-12-23] MEDS ORDERED: ONDANSETRON INJ 2 MG/ML 2 ML VIAL IV PRN (23:38)
[2024-12-24] MEDS: methylPREDNISolone 125 MG/2 ML VIAL IV STA
[2024-12-24] MEDS: SODIUM CHLORIDE 0.9% 1,000 ML IV SCH (00:01)
[2024-12-24] MEDS: LACTATED RINGER'S 1,000 ML IV SCH (00:18)
[2024-12-24] MEDS: APIXABAN 5 MG TABLET PO SCH (00:18)
[2024-12-24] MEDS: ALBUT/IPRATROP 3MG/0.5MG NEB 3 ML VIAL NEB SCH (01:52)
[2024-12-24 04:37] LABS: Appearance Urine Clear (Clear); Bacteria Urine Automated None Seen (None Seen); Bilirubin Urine Negative (Negative); Blood Urine 2+ (Negative); Color Urine Yellow; Epithelial Cell Urine Auto 0-2 /hpf (0-2); Glucose Urine UA 3+ (Negative); Ketones Urine Negative (Negative); Leukocyte Esterase Urine Negative (Negative); Nitrite Urine Negative (Negative); Protein Urine 2+ (Negative); Specific Gravity Urine 1.022 (1.000-1.030); Urobilinogen Urine Negative (Negative); WBC Urine Automated 0-5 /hpf (0-5)
[2024-12-24 06:27] LABS: Basophils # (auto) 0.01 K/uL (0.00-0.20); Basophils % (auto) 0.1 %; Hematocrit (blood only) 25.6 % (42.0-52.0); Hemoglobin 8.3 g/dl (14.0-18.0); Immature Granulocytes # (auto) 0.07 K/uL (0.01-0.20); Immature Granulocytes % (auto) 0.9 %; Lymphocytes # (auto) 0.46 K/uL (1.20-3.40); Lymphocytes % (auto) 6.1 %; Mean Corpuscular Hemoglobin 28.2 pg (25.0-34.0); Mean Corpuscular Hgb Conc 32.4 g/dL (32.0-36.0); Mean Corpuscular Volume 87.1 fL (80.0-100.0); Mean Platelet Volume 10.3 fL (9.4-12.4); Monocytes # (auto) 0.35 K/uL (0.11-0.59); Monocytes % (auto) 4.7 %; Neutrophils # (auto) 6.61 K/uL (1.40-6.50); Neutrophils % (auto) 88.2 %; Platelet Count 253 K/uL (130-400); RDW Coefficient of Variation 16.1 % (11.5-14.5); RDW Standard Deviation 51.6 fL (36.4-46.3); Red Blood Count 2.94 M/uL (4.70-6.10)
[2024-12-24 06:33] LABS: BUN Creatinine Ratio 33.8 (10-20); Calcium 8.7 mg/dl (8.6-10.3); Creatinine Clr Calc Pharmacy 51.5 ml/min; Potassium 3.9 mmol/L (3.5-5.1)
--- NOTE | 2024-12-24 06:51 | Billing Data ---
Date of Service December 23, 2024 Coding Level of Care Code 71288 INT INP/OBS CARE
[2024-12-24] MEDS: methylPREDNISolone 40 MG in SYRINGE 0 ML IV SCH (08:50)
[2024-12-24] MEDS: PANTOprazole 40 MG TAB PO SCH (08:50)
[2024-12-24] MEDS: CHLORTHALIDONE 25 MG TAB PO SCH (08:51)
[2024-12-24] MEDS: UMECLIDINIUM/VILANTEROL 62.5/25MCG 7 PUFFS/INHALER INH SCH (08:51)
[2024-12-24] MEDS: FLUTICASONE FUROATE 100MCG 14 PUFFS/INHALER INH SCH (08:51)
[2024-12-24] MEDS: AZITHROMYCIN 250 MG TAB PO SCH (08:52)
[2024-12-24] MEDS: ASPIRIN 81 MG ECTAB PO SCH (08:52)
[2024-12-24] MEDS: guaiFENesin 600 MG TABCR PO SCH (08:52)
[2024-12-24] MEDS: lisinopril 10 MG TAB PO SCH (08:52)
[2024-12-24] MEDS: SERTRALINE HCL 50 MG TABLET PO SCH (08:52)
[2024-12-24] MEDS ORDERED: NON-FORMULARY MEDICATION (Fluticasone-Umeclidin-Vilanter [Trelegy Ellipta] 100-62.5-25 mcg INH SCH (09:00)
[2024-12-24] MEDS ORDERED: methylPREDNISolone 125 MG/2 ML VIAL IV SCH (09:00)
--- NOTE | 2024-12-24 16:42 | Hospitalist Progress Note ---
Date of Service December 24, 2024 Assessment & Plan (1) Right lower lobe pneumonia: (2) COPD exacerbation: (3) TISHA (acute kidney injury): (4) CKD stage 3a, GFR 45-59 ml/min: (5) History of atrial flutter: (6) Fall from standing: (7) GERD (gastroesophageal reflux disease): (8) Coronavirus infection, unspecified: Plan 74 yo male PMHx afib/flutter on Eliquis, COPD, HTN, HLD, CAD s/p stenting, CKD 3a, CVA, AAA and ascending aorta repair, aortic valve replacement admitted 2/2 to [facility]. Patient reports improvement in symptoms overnight and was feeling well overall today. #PNA/COPD/non-COVID coronavirus CXR: right sided early pneumonia Procal 12/23: 0.41 Biofire + for coronavirus OC43 CBC w/ resolution of leukocytosis, BMP stable Continue CTX and azithromycin Reduced Solumedrol from 40mg IV BID to daily 12/24, plan to transition to PO prednisone on discharge. Duonebs q6h PRN Mucinex BID Incentive spirometry Continue home inhaler or equivalent No current O2 demand, supplement as necessary for O2 goal 88-92% #TISHA on CKD-IIIa Baseline Cr 1.1-1.2 Likely pre-renal due to dehydration/poor PO intake s/p 3L IVF BMP w/ improvement of creatinine to 1.42. Avoid nephrotoxic agents AM CBC/BMP #Falls/weakness Head CT: no definite acute abnormality in plain CT head at present. Chronic microvascular ischemic changes & senile cortical atrophy. Has had multiple falls in the last month L-thigh/hip hematoma, evaluated and found to not have fracture as an outpatient PT/OT ordered - patient is independent. #HTN/HLD/Cardiovascular problems Continue home medications: Eliquis, ASA, chlorthalidone, lisinopril, metoprolol, Crestor #GERD Continue Protonix BID - Started last admission in setting of GI bleed/EGD w/vascular clipping 2/2 Lula Snider tear. #Mental health Continue sertraline DVT prophylaxis: Eliquis Full code Anticipate discharge home 12/24 Attempted to call x 2 for update w/ no answer. Will attempt later this evening. Admission and Anticipated Discharge Date Admission Date: December 23, 2024 Subjective Patient seen and examined this morning. patient reports to be feeling much better today. he denies CP or SOB. Reports his cough has improved. Patient reports he is compliant at home with his inhaler for COPD. Physical Exam Constitutional: WD/WN, vitals as above Eyes: PERRL, conjunctivae normal, anicteric sclerae Respiratory: CTA, diminished Cardiovascular: RRR, no murmur, no edema Musculoskeletal: moves all extremities Psychiatric: A+Ox3, euthymic affect Results & Data Results & Data Vital Signs (Past 12 Hours) Vital Signs Temp Pulse Resp BP Pulse Ox Pulse Ox Pulse Ox 12/24/24 15:28 36.7 C 90 14 130/59 L 95 12/24/24 13:14 88 18 96 12/24/24 11:00 94 95 12/24/24 10:29 12/24/24 08:09 36.4 C L 79 14 143/60 H 96 12/24/24 07:15 76 18 92 Pulse Ox O2 Del Method O2 Flow Rate O2 Flow Rate O2 Flow Rate 12/24/24 15:28 Room Air 12/24/24 13:14 Room Air 12/24/24 11:00 93 0 0 0 12/24/24 10:29 Room Air 12/24/24 08:09 Room Air 12/24/24 07:15 Room Air PG Care Time/CCT Total # of Minutes Spent Total Time Spent with Patient: Total time spent is greater than 50% in coordination of care (as documented) at patient's floor/unit and/or counseling patient: Coding Level of Care Code 95446 SUB INP/OBS CARE 2/35MIN Diagnoses Right lower lobe pneumonia J18.9 COPD exacerbation J44.1 TISHA (acute kidney injury) N17.9 CKD stage 3a, GFR 45-59 ml/min N18.31 History of atrial flutter Z86.79 Fall from standing W19.XXXA GERD (gastroesophageal reflux disease) K21.9 Coronavirus infection, unspecified B34.2
[2024-12-24] MEDS: cefTRIAXone SODIUM 2,000 MG/50 ML BAG IV SCH (17:29)
[2024-12-24] MEDS: ROSUVASTATIN CALCIUM 20 MG TAB PO SCH (20:28)
[2024-12-24] MEDS: METOPROLOL SUCC 25MG EXT REL TAB PO SCH (20:28)
[2024-12-25 06:32] LABS: Hematocrit (blood only) 23.5 % (42.0-52.0); Hemoglobin 7.6 g/dl (14.0-18.0); Mean Corpuscular Hemoglobin 28.1 pg (25.0-34.0); Mean Corpuscular Hgb Conc 32.3 g/dL (32.0-36.0); Mean Platelet Volume 10.4 fL (9.4-12.4); Platelet Count 280 K/uL (130-400); RDW Coefficient of Variation 16.3 % (11.5-14.5); RDW Standard Deviation 51.5 fL (36.4-46.3); White Blood Count 9.39 K/ul (4.8-10.8)
[2024-12-25 07:02] LABS: BUN Creatinine Ratio 34.7 (10-20); Calcium 8.9 mg/dl (8.6-10.3); Creatinine Clr Calc Pharmacy 58.9 ml/min; Potassium 4.3 mmol/L (3.5-5.1)
[2024-12-25] MEDS: methylPREDNISolone 40 MG in SYRINGE 0 ML IV SCH (09:27)
[2024-12-25 10:28] LABS: Ferritin 93.7 ng/ml (8-388)
[2024-12-25 11:44] VITALS: BP 142/69; PULSE 77; RESP 19; TEMP 98.2; O2SAT 94
--- NOTE | 2024-12-25 12:14 | Discharge Summary ---
Discharge Summary Date of Service December 25, 2024 Principal Dx & Hospital Course #1 = Principal Diagnosis (1) TISHA (acute kidney injury): (2) Right lower lobe pneumonia: (3) COPD exacerbation: (4) CKD stage 3a, GFR 45-59 ml/min: (5) History of ME (myocardial infarction): (6) Aortic valve disease: (7) History of atrial flutter: (8) High cholesterol: (9) Hypertension: (10) CAD (coronary artery disease), [place] coronary artery: (11) S/P AVR (aortic valve replacement): (12) History of AAA (abdominal aortic aneurysm) repair: (13) H/O thoracic aortic aneurysm repair: (14) History of CVA (cerebrovascular accident): (15) Fall from standing: (16) GERD (gastroesophageal reflux disease): Plan 74 yo male PMHx afib/flutter on Eliquis, COPD, HTN, HLD, CAD s/p stenting, CKD 3a, CVA, AAA and ascending aorta repair, aortic valve replacement admitted 2/ to [facility]. #PNA/COPD/non-COVID coronavirus CXR: right sided early pneumonia Procal 12/23: 0.41 CBC w/o leukocytosis, BMP stable CTX/Azithro inpatient --> transition to Augmentin and Azithro outpatient to complete course Patient treated w/ IV steroids inpatient --> transition to prednisone taper on dc Mucinex BID Incentive spirometry Continue home inhaler #Anemia Patient w/ progressive decline of hgb, 7.6 in AM w/ repeat at 7.9 Follows w/ GI for hx of Lula Snider tear & hx of AVM's. Patient reports last CN in [place] Also w/ microscopic hematuria on urinalysis +iron deficiency, started on PO supplementation. Recommend follow up w/ GI for further workup along with PCP for hematuria workup. #TISHA on CKD-IIIa Baseline Cr 1.1-1.2 Likely pre-renal due to dehydration/poor PO intake Resolved, creatinine 1.24 #Falls/weakness Has had multiple falls in the last month L-thigh/hip hematoma, evaluated and found to not have fracture as an outpatient PT/OT- pt independent #HTN/HLD/Cardiovascular problems Continue home medications: Eliquis, ASA, chlorthalidone, lisinopril, metoprolol, Crestor #GERD Continue Protonix BID - Started last admission in setting of GI bleed/EGD w/vascular clipping 11/24 Lula Snider tear. #Mental health Continue sertraline Patient discharged home 12/25. Admission HPI Per Admitting Provider 74 yo male PMHx afib/flutter on Eliquis, COPD, HTN, HLD, CAD s/p stenting, CKD 3a, CVA, AAA and ascending aorta repair, aortic valve replacement admitted 11/24 to [facility]. Beginning 12/19/24 the patient was feeling more fatigued and started with cough productive of yellow sputum. He has had poor oral intake. He has felt some dizziness during this time as well. He was seen by PCP 12/23/24 and evaluated. Given his medical history he was referred to the emergency department for evaluation. Initially he was evaluated and was to be discharged home, but later it was decided that he should be admitted. He was hypotensive on presentation to the emergency department and recieved fluids with good response. Overall, at the time of admission he states that he is feeling somewhat better. He continues to have congestion/cough. He has not required oxygen. Of note, he states that he has not been feeling well for about a month and did have at least two falls in the 3rd week of November resulting in hematoma of the L hip. He had radiographs taken that were negative for fracture. ED course: Labs reveal anemia, mild leukocytosis, TISHA (baseline Cr 1.1-1.2, +non-COVID coronavirus CT Head negative for acute pathology CT AP shows patchy ground glass opacities and consolidation in the imaged RLL CXR: shows likely early RLL opacity/consolidation indicating suggestive of early pneumonia; changes indicative of patients known COPD/emphysema Recieved 2L NSS, 125mg solumedrol, ceftriaxone, azithromycin, Tylenol, albuterol neb Discharge Exam Constitutional WD/WN, vitals as above Eyes PERRL, conjunctivae normal, anicteric sclerae Respiratory diminished b/l, clear Cardiovascular RRR, no murmur, no edema Musculoskeletal moves all extremities Psychiatric A+Ox3, euthymic affect Discharge Plan Discharge Items Patient Disposition: Home - Self-Care Reason For Visit: COPD,PNA,TISHA Discharge Diagnosis: Pneumonia, COPD exacerbation, Coronavirus Activity: Resume your previous activity Non-emergency contact: Primary Care Provider Call non-emergency contact if: you have any medication questions and your symptoms worsen Follow-up/Referrals: Megan Adorno [Primary Care Provider] - 01/03/25 12:45 pm Diet: Heart Healthy Addtl Attending Provider Instructions: Mr. Chery, You were recently hospitalized for a respiratory illness and found to have coronavirus, pneumonia, and COPD exacerbation. Please see recommendations below regarding your discharge. 1. Please take Azithromycin once daily for the next 3 days. Your first dose at home will be 12/26. 2. Please take Augmentin twice daily for the next 5 days. Your first dose will be this evening 12/25. 3. You may take your antibiotics with food to avoid GI upset. 4. Please take the prednisone taper as prescribed. Your first dose at home will be 12/26. 5. Please start a daily iron supplementation, this has been sent in to your pharmacy. 6. Please follow up with your grounds cleaner and PCP for further workup regarding your anemia. 7. You may continue the remainder of your outpatient medications as previously prescribed. If you develop any worsening shortness of breath, chest pain, dizziness, weakness please report back to the ER for further care. Sincerely, Kendra Stephens PA-C Pending Studies at Discharge: No Stand-Alone Forms: My [facility], Smoking Cessation Medications and DC Order Prescriptions: New azithromycin 250 mg tablet 250 mg PO DAILY Qty: 3 0RF amoxicillin-pot clavulanate 875-125 mg tablet 1 tab PO Q12H Qty: 9 0RF prednisone 10 mg tablet 10 mg PO DIRECTED Qty: 26 0RF Rx Instructions: Please take 4 tablets by mouth for 2 days followed by 3 tablets by mouth for 3 days followed by 2 tablets by mouth for 3 days followed by 1 tablet by mouth for 3 days. ferrous sulfate 325 mg (65 mg iron) tablet 325 mg PO DAILY Qty: 30 0RF Continued Trelegy Ellipta 100-62.5-25 mcg blister with device 1 inh inhalation DAILY Qty: 180 3RF rosuvastatin 40 mg tablet 40 mg PO HS Rx Instructions: last filled 09/30 90 day supply sertraline 50 mg tablet 50 mg PO DAILY Rx Instructions: last filled 10/01 90 day supply Eliquis 5 mg tablet 5 mg PO UD Hold Instructions: Until your PCP re-checks your hemoglobin in about a week Rx Instructions: 5 mg po bid. last filled 04/26/24 90 day supply metoprolol succinate 25 mg Tablet Extended Release 24 Hr 25 mg PO HS Rx Instructions: last filled 09/30 90 day supply albuterol sulfate 90 mcg/actuation Hfa Aerosol Inhaler 2 puff INHALATION BID lisinopril 10 mg Tablet 10 mg PO QAM Rx Instructions: last filled 09/30 90 day supply aspirin [Ashley Chewable Aspirin] 81 mg Tablet,Chewable 81 mg PO QAM Hold Instructions: Hold until your PCP re-checks your hemoglobin in about a week. Rx Instructions: 12/23/24-otc unable to verify chlorthalidone 25 mg tablet 25 mg PO UD Rx Instructions: 1 tab po q48h. Filled 10/01 90 day supply Discharge Orders: Discharge Order (Routine); Ordered 12/25/24 Ordered By: Kendra Medina/Other Patient Handouts: What Is Pneumonia?, Discharge Instructions: COPD, When You Have Pneumonia Admission Data Admit Date/Time: 12/23/24 22:04 Attending Provider: Melissa Senior Admit Provider: Josh Love Primary Care Provider: Megan Adorno Other Providers: Darlin Malloy Other Interventions: Discharge Summary Assessment (RN) Last Done: 12/25/24 13:02 Hospital Stay Data Consultations 12/23/24 21:19 ED Decision to Admit Stat Diagnostic Imagining Performed 12/23/24 17:35 CT abd pelvis wo con Stat CT head/brain wo con Stat Pending Results Patient Have Any Pending Studies at Discharge: No Discharge Instructions Given to Patient (Per Discharging Provider) Mr. Chery, Sourav were recently hospitalized for a respiratory illness and found to have coronavirus, pneumonia, and COPD exacerbation. Please see recommendations below regarding your discharge. 1. Please take Azithromycin once daily for the next 3 days. Your first dose at home will be 12/26. 2. Please take Augmentin twice daily for the next 5 days. Your first dose will be this evening 12/25. 3. You may take your antibiotics with food to avoid GI upset. 4. Please take the prednisone taper as prescribed. Your first dose at home will be 3/. 5. Please start a daily iron supplementation, this has been sent in to your pharmacy. 6. Please follow up with your grounds cleaner and PCP for further workup regarding your anemia. 7. You may continue the remainder of your outpatient medications as previously prescribed. If you develop any worsening shortness of breath, chest pain, dizziness, weakness please report back to the ER for further care. Sincerely, eKndra Stephens PA-C Total Time Total Time Spent Total Time Spent (In Minutes): 50 Total Time Includes: Examination of the Patient, Discharge Planning and Medication Reconciliation Coding Level of Care Code 88449 INP/OBS DISCH >30 MIN Diagnoses TISHA (acute kidney injury) N17.9 Right lower lobe pneumonia J18.9 COPD exacerbation J44.1 CKD stage 3a, GFR 45-59 ml/min N18.31 History of ME (myocardial infarction) I25.2 Aortic valve disease I35.9 History of atrial flutter Z86.79 High cholesterol E78.00 Hypertension I10 CAD (coronary artery disease), [place] coronary artery I25.10 S/P AVR (aortic valve replacement) Z95.2 History of AAA (abdominal aortic aneurysm) repair Z98.890 H/O thoracic aortic aneurysm repair Z98.890; Z86.79 History of CVA (cerebrovascular accident) Z86.73 Fall from standing W19.XXXA GERD (gastroesophageal reflux disease) K21.9
[2024-12-25] MEDS: AMOXICILLIN/CLAVULANATE 875 MG TAB PO ONE (12:30)
--- NOTE | 2024-12-25 19:10 | Electrocardiogram Report ---
Test Reason : Blood Pressure : */* mmHG Vent. Rate : 82 BPM Atrial Rate : 82 BPM P-R Int : 306 ms QRS Dur : 112 ms QT Int : 396 ms P-R-T Axes : 90 23 67 degrees QTcB Int : 462 ms Sinus rhythm with 1st degree A-V block Possible Left atrial enlargement Cannot rule out Anterior infarct , age undetermined Abnormal ECG When compared with ECG of 14-Sep-2024 16:53, Premature ventricular complexes are no longer Present Confirmed by Gal Fermin ([id number]) on 12/25/2024 7:10:04 PM Referred By: Confirmed By: Gal Fermin
== END 2024-12-25 13:29 | disposition home or self-care (01) | DRG 194 ==
LOC: ED 11:08 → SUATTDRO 22:04 → 3E 22:04
DX: N17.9 Acute kidney failure, unspecified; I25.10 Atherosclerotic heart disease of native coronary artery without angina pectoris; Z87.891 Personal history of nicotine dependence; Z79.82 Long term (current) use of aspirin; J18.9 Pneumonia, unspecified organism; Z79.899 Other long term (current) drug therapy; Z86.73 Personal history of transient ischemic attack (TIA), and cerebral infarction without residual deficits; S70.02XA Contusion of left hip, initial encounter; I35.9 Nonrheumatic aortic valve disorder, unspecified; R29.6 Repeated falls; W19.XXXA Unspecified fall, initial encounter; I25.2 Old myocardial infarction; J44.0 Chronic obstructive pulmonary disease with (acute) lower respiratory infection; S70.12XA Contusion of left thigh, initial encounter; Z95.5 Presence of coronary angioplasty implant and graft; D64.9 Anemia, unspecified; I12.9 Hypertensive chronic kidney disease with stage 1 through stage 4 chronic kidney disease, or unspecified chronic kidney disease; E86.0 Dehydration; K21.9 Gastro-esophageal reflux disease without esophagitis; E78.2 Mixed hyperlipidemia; N18.31 Chronic kidney disease, stage 3a; Z79.01 Long term (current) use of anticoagulants; B34.2 Coronavirus infection, unspecified; I48.92 Unspecified atrial flutter; Z95.2 Presence of prosthetic heart valve

== ENCOUNTER 2025-08-30 16:44 | Inpatient (IN) ==
--- NOTE | 2025-08-30 17:31 | Emergency Department Note ---
Impression & Plan Hypoxia, Pneumonia, Acute exacerbation of chronic obstructive pulmonary disease (COPD), Bigeminy, Elevated troponin ED Provider Note ED Provider Note NAME: LIILANA PEREZ AGE:75 SEX: Male : 1950 ARRIVES VIA: private vehicle INFORMANT: Patient ED PROVIDER(s): Yelena Malhotra DO CHIEF COMPLAINT: shortness of breath HPI: This is a 75-year-old male who presents to the Emergency Department due to concern for possible pneumonia as he reports developing upper respiratory symptoms that began earlier this week that he feels are progressing with worsening cough, and now shortness of breath. Patient states he has had pneumonia previously that has required. He does have a history of COPD but does not use oxygen at home. He states he does use MDIs. He states he had subjective fevers and chills but did not measure his temperature. He states his cough has been productive of a green and yellow sputum. He also notes a mild headache. He denies chest pain, dizziness, or other weakness, denies nausea, vomiting, and diarrhea. No recent travel, no change in medications. No known sick contact. PAST MEDICAL HISTORY:See Below PAST SURGICAL HISTORY:See Below FAMILY HISTORY:See Below SOCIAL HISTORY:See Below HOME MEDICATIONS:See Below ALLERGIES:See Below VITALS:See Below PHYSICAL EXAMINATION: GENERAL: alert, well appearing, well nourished, no distress, non-toxic EYE EXAM: normal conjunctiva, PERRL and EOM's grossly intact OROPHARYNX: no exudate, no erythema, lips, buccal mucosa, and tongue normal and mucous membranes are moist NECK: supple, no nuchal rigidity, no adenopathy, non-tender LUNGS: Decreased to auscultation. Normal chest wall mechanics, no w/r/r, mild tachypnea and increased WOB HEART: no murmurs, S1 normal and S2 normal ABDOMEN: abdomen soft, non-tender, normo-active bowel sounds, no masses, no rebound or guarding. SKIN: no rashes, petechiae, orbruising UPPER EXTREMITIES: upper extremities are grossly normal. FROM, nml pulses b/l. LOWER EXTREMITIES: No pitting edema. FROM, nml pulses b/l. NEURO EXAM: Normal sensorium, cranial nerves II-XII grossly intact, normal speech, no facial droop,nogross weakness of arms, no gross weakness of legs. Gross sensation intact. No ataxia. Vital Signs: reviewed and remarkable Differential Diagnosis: pneumonia, bronchitis, COPD/Asthma exacerbation, pneumothorax, pulmonary embolism, congestive heart failure, acute coronary syndrome, as well as others were considered MEDICAL DECISION MAKIN-year-old male presents to the Emergency Department due to concern for increased shortness of breath, cough, and URI symptoms evolving over the course of the last week. Patient afebrile and hemodynamically stable on arrival. Labs drawn and sent, IV established, EKG and CXR performed and interpreted at bedside, and patient placed on telemetry. Patient started on gentle IV fluid hydration and was given a DuoNeb treatment. After review of chest x-ray there is concern for possible pneumonia so blood cultures added, procalcitonin added, patient started on IV Rocephin and doxycycline. Nasal swab had been obtained and sent for viral respiratory panel, this was ultimately positive for enterovirus/rhinovirus. Patient was noted to have a leukocytosis of 16, procalcitonin negative. Patient was noted to have decreased suction saturations into the upper 80s, was placed on oxygen via nasal cannula with improvement. Patient did report improvement following nebulizer treatment and placed on oxygen. We discussed additional inpatient evaluation and agreement. Case discussed with hospitalist team for additional evaluation and management. Consultation(s): 1911: Discussed with Dr. Malloy, [place] hospitalist team, for additional evaluation and mgmt. ER Treatment Provided: See below 1814: Patient noted to be 88% on RA. Was placed on oxygen via NC at 2 lpm. Diagnostics Interpreted By Me: -ECG: Normal sinus at 100, leftward axis, frequent PVCs in a pattern of bigeminy, normal intervals, none specific ST/T wave changes -Cardiac Monitoring: An order was placed for continuous cardiac monitoring. The monitor shows a rate of 98 with normal sinus rhythm. -Laboratory studies: As stated above and show below. -Imaging studies: X-ray Chest: A single view study of the chest was reviewed and was negative for cardiomegaly, effusion, pulmonary edema, or wide mediastinum. RLL infiltrate. Triage Nursing Note Reviewed Prior/Outside Records Reviewed -prior discharge summary from December 2024 reviewed Past Med/Surg History Problem List (Updated 08/30/25 @ 22:55 by Stefania Barrera PA-C) Demand ischemia Acute hypoxemic respiratory failure Elevated troponin (Acute) Bigeminy (Acute) Acute exacerbation of chronic obstructive pulmonary disease (COPD) (Acute) Pneumonia (Acute) Hypoxia (Acute) Elevated serum creatinine Melena Mass of left side of neck Anxiety AVM (arteriovenous malformation) Afib Fall from standing History of CVA (cerebrovascular accident) CKD stage 3a, GFR 45-59 ml/min COPD (chronic obstructive pulmonary disease) (Acute) TISHA (acute kidney injury) (Acute) Pneumonia (Acute) Coronavirus infection, unspecified (Acute) Sepsis Rhinovirus infection (Acute) Upper GI bleed Vomiting (Acute) Anemia (Acute) COPD exacerbation (Acute) Pneumonia (Acute) SOB (shortness of breath) (Acute) GI bleed (Acute) Right lower lobe pneumonia Wears hearing aid in both ears Phonak L50R disp 02/2023 Does not have health insurance COPD, group B, by GOLD 2017 classification Periorbital ecchymosis of left eye Encounter for pre-operative examination Cholesteatoma of attic of left ear Perforation of left tympanic membrane Mixed hearing loss, bilateral Medical History (Updated 08/30/25 @ 22:55 by Stefania Barrera PA-C) History of ST elevation myocardial infarction (STEMI) Tubular adenoma of colon History of atrial flutter 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 SNHL, :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 History of tobacco use disorder GERD (gastroesophageal reflux disease) Tinnitus of both ears GI bleed 2019 CAD (coronary artery disease), [place] coronary artery stent x1 (2016) COPD (chronic obstructive pulmonary disease) "Controlled" > follows with [facility] in [place] ([phone]) Aortic valve disease s/p AVR- 2018 (echo 10/28/20 with normal appearing bioprosthetic aortic valve and normal transvalvular flow velocities and no AI) History of AL (myocardial infarction) 2016 History of kidney stones CKD (chronic kidney disease) High cholesterol Hypertension Surgical History (Updated 06/09/25 @ 14:47 by Araseli Deleon LPN) S/P drug eluting coronary stent placement S/P ascending aortic aneurysm repair S/P AAA repair Hx of detached retina repair History of mastoidectomy Left Tympanomastoidectomy - 05/21/[address] Cisneros History of AAA (abdominal aortic aneurysm) repair 2018 History of esophagogastroduodenoscopy (EGD) History of colonoscopy History of heart artery stent stent x1 (2016) History of cardiac cath S/P AVR (aortic valve replacement) 2018 History of cataract extraction History of cholecystectomy History of oral surgery Removal of impacted teeth History of appendectomy H/O thoracic aortic aneurysm repair Family History (Updated 06/09/25 @ 14:28 by Araseli Deleon LPN) Mother Stroke Myocardial infarction Father Bone cancer COPD (chronic obstructive pulmonary disease) Grandmother (Paternal) Stroke Diabetes Other Emphysema lung Lung disease No family history of adverse response to anesthesia No family history of bleeding disorder Social History Smoking Status: Former smoker Tobacco Type: Cigarettes Age Started Using Tobacco: 50; Age Quit Using Tobacco: 65; packs per day: 1; Second Hand Exposure: No; Do You Dip or Chew Tobacco: No; Hx Alcohol Use: No Hx Substance Use: No Preferred Language: Yemeni Communication Ability: Effective Visual Impairment: No Limitations Field Captain Required: No Beliefs That Will Affect Care: None marital status: Current Living Situation: Spouse and Family Current Living Situation Comment: With Brother//Family current occupational status: employed current occupation: woodworking Feels Safe at Home: Yes Gender Identity: Male Assistive Devices: Cane and Wheelchair Allergies Allergies Allergy/AdvReac Type Severity Reaction Status Date / Time No Known Drug Allergies Allergy Verified 08/30/25 17:28 Home Meds Home Medications Medication Instructions Recorded Confirmed albuterol sulfate 90 mcg/actuation 2 puff inhalation BID 02/04/20 08/30/25 aerosol inhaler aspirin 81 mg chewable tablet 81 mg PO QAM 05/05/21 08/30/25 (Ashley Chewable Low Dose Aspirin) sertraline 50 mg tablet 50 mg PO DAILY 04/27/23 08/30/25 apixaban 5 mg tablet (Eliquis) 5 mg PO BID 06/05/25 08/30/25 metoprolol succinate 25 mg 25 mg PO QPM 06/05/25 08/30/25 tablet,extended release 24 hr nitroglycerin 0.4 mg sublingual 0.4 mg sublingual Q5M PRN Chest 06/05/25 08/30/25 tablet Pain lisinopril 20 mg tablet 20 mg PO DAILY 08/30/25 08/30/25 Previous Rx's Medication Instructions Recorded fluticasone fur. 100 mcg-umeclid 1 inh inhalation DAILY #3 Inhalers 04/09/25 62.5 mcg-vilant 25 mcg inhalat.powder (Trelegy Ellipta) Results & Data (ED) Vital Signs Vital Signs - 24 hr 08/30/25 16:48 08/30/25 17:18 08/30/25 17:30 Temperature 36.7 C Temperature Source Oral Pulse Rate 109 H 100 H 98 H Pulse Rate [Apical] Respiratory Rate 17 19 Respiratory Effort / Characteristics Spontaneous Respiratory Depth Normal Respiratory Pattern Blood Pressure 137/71 151/96 H Blood Pressure [Right Arm] Blood Pressure Mean 93 114 Blood Pressure Mean [Right Arm] Blood Pressure Position Sitting Pulse Oximetry 91 91 Oxygen Delivery Method Room Air Oxygen Flow Rate Sepsis Recent Fever Within 48 Hours No Sepsis New/Unexplained Change in Mental Status N/A Sepsis Action Taken by Nursing No Action Required Oxygen Flow Rate - Titration Pulse Oximetry Post Tiitration 08/30/25 17:42 08/30/25 18:18 08/30/25 19:01 Temperature Temperature Source Pulse Rate 96 H Pulse Rate [Apical] 100 H Respiratory Rate 20 17 Respiratory Effort / Characteristics Non-Labored Spontaneous Respiratory Depth Normal Respiratory Pattern Regular Blood Pressure 151/96 H Blood Pressure [Right Arm] 159/84 H Blood Pressure Mean 114 Blood Pressure Mean [Right Arm] 109 Blood Pressure Position Pulse Oximetry 90 88 L 93 Oxygen Delivery Method Room Air Nasal Cannula Oxygen Flow Rate 0 2 Sepsis Recent Fever Within 48 Hours Sepsis New/Unexplained Change in Mental Status Sepsis Action Taken by Nursing Oxygen Flow Rate - Titration 2 Pulse Oximetry Post Tiitration 94 Laboratory Data 08/30/25 17:19 08/30/25 17:19 Lab Results 08/30/25 08/30/25 08/30/25 Range/Units 17:19 17:41 18:48 WBC 16.20 H (4.8-10.8) K/ul RBC 4.48 L (4.70-6.10) M/uL Hgb 13.0 L (14.0-18.0) g/dl Hct 38.7 L (42.0-52.0) % MCV 86.4 (80.0-100.0) fL MCH 29.0 (25.0-34.0) pg MCHC 33.6 (32.0-36.0) g/dL RDW Std Deviation 43.5 (36.4-46.3) fL RDW Coeff of Tristen 13.7 (11.5-14.5) % Plt Count 357 (130-400) K/uL MPV 11.3 (9.4-12.4) fL Immature Gran % (Auto) 0.6 % Neut % (Auto) 81.1 % Lymph % (Auto) 6.4 % [place] % (Auto) 11.0 % Eos % (Auto) 0.4 % Baso % (Auto) 0.5 % Neut # (Auto) 13.14 H (1.40-6.50) K/uL Lymph # (Auto) 1.04 L (1.20-3.40) K/uL [place] # (Auto) 1.79 H (0.11-0.59) K/uL Eos # (Auto) 0.06 (0.00-0.50) K/uL Baso # (Auto) 0.08 (0.00-0.20) K/uL Immature Gran # (Auto) 0.09 (0.01-0.20) K/uL PT 12.8 H (9.0-12.0) Seconds INR 1.2 H (0.9-1.1) VBG pH 7.46 H (7.36-7.41) VBG pCO2 31 L (38-50) mmHg VBG pO2 63 mmHg VBG HCO3 22 mmol/L VBG O2 Saturation 93.1 % VBG Base Excess -0.9 mEq/L Sodium 135 L (136-145) mmol/L Potassium 3.9 (3.5-5.1) mmol/L Chloride 100 (98-107) mmol/L Carbon Dioxide 23 (21-32) mmol/L Anion Gap 12 H (3-11) BUN 29 H (6-23) mg/dl Creatinine 1.21 (0.6-1.4) mg/dl Est Cr Clr Drug Dosing 56.1 ml/min eGFR 61.67 BUN/Creatinine Ratio 24.0 H (10-20) Glucose 109 H (70-99(Fasting)) mg/dl Calcium 9.5 (8.6-10.3) mg/dl Magnesium 1.9 (1.7-2.4) mg/dl Total Bilirubin 1.2 H (0.2-1.0) mg/dl AST 13 (13-39) U/L ALT 9 (7-52) U/L Alkaline Phosphatase 71 (34-104) U/L Troponin I High Sens 26.8 H (0-20) pg/ml Total Protein 7.8 (6.0-8.3) gm/dl Albumin 3.6 (3.4-5.0) gm/dl Globulin 4.2 H (2.5-4.0) gm/dl Albumin/Globulin Ratio 0.9 (0.9-2) Procalcitonin 0.23 (0-0.5) ng/ml Adenovirus (PCR) Not Detected (NotDetected) B. pertussis DNA (PCR) Not Detected (NotDetected) B.parapertussis DNA PCR Not Detected (NotDetected) C. pneumoniae DNA (PCR) Not Detected (NotDetected) Coronavirus OC43 (PCR) Not Detected (NotDetected) Coronavirus HKU1 (PCR) Not Detected (NotDetected) Coronavirus 229E (PCR) Not Detected (NotDetected) SARS-CoV-2 (PCR) Not Detected (NotDetected) Coronavirus NL63 (PCR) Not Detected (NotDetected) Human Metapneumovir PCR Not Detected (NotDetected) Influenza Type A (PCR) Not Detected (NotDetected) Influenza Type B (PCR) Not Detected (NotDetected) M. pneumoniae (PCR) Not Detected (NotDetected) Parainfluenza 1 (PCR) Not Detected (NotDetected) Parainfluenza 2 (PCR) Not Detected (NotDetected) Parainfluenza 3 (PCR) Not Detected (NotDetected) Parainfluenza 4 (PCR) Not Detected (NotDetected) RSV (PCR) Not Detected (NotDetected) Entero/Rhino (PCR) DETECTED A (NotDetected) Administered Medications Albuterol (Albuterol Hfa 8 Gm Inhaler) 2 puffs INH BID [place] Stop: 09/29/25 22:00 Last Admin: 08/30/25 22:25 Dose: Not Given Documented By: LGB Albuterol (Albut/Ipratrop 3mg/0.5mg Neb 3 Ml Vial) 3 ml NEB QIDR [facility]; Protocol Stop: 09/29/25 22:00 Last Admin: 08/30/25 22:25 Dose: 3 ml Documented By: CHARLEY Apixaban (Apixaban 5 Mg Tablet) 5 mg PO BID [place] Stop: 09/29/25 22:00 Last Admin: 08/30/25 22:50 Dose: 5 mg Documented By: DUANE Guaifenesin (Guaifenesin 600 Mg Tabcr) 1,200 mg PO Q12 [place] Stop: 09/29/25 22:00 Last Admin: 08/30/25 22:50 Dose: 1,200 mg Documented By: DUANE Lactated Ringer's (Lr) 1,000 mls @ 125 mls/hr IV .Q8H [place] Stop: 08/31/25 11:44 Last Admin: 08/30/25 20:40 Dose: 125 mls/hr Documented By: TIESHA Metoprolol Succinate (Metoprolol Succ 25mg Ext Rel Tab) 25 mg PO QPM [place] Stop: 09/29/25 22:00 Last Admin: 08/30/25 22:50 Dose: 25 mg Documented By: DUANE Discontinued Medications Acetaminophen (Acetaminophen 500 Mg Tab) 1,000 mg PO NOW STA Stop: 08/30/25 20:52 Last Admin: 08/30/25 21:01 Dose: 1,000 mg Documented By: celia Albuterol (Albut/Ipratrop 3mg/0.5mg Neb 3 Ml Vial) 3 ml NEB NOW STA; Protocol Stop: 08/30/25 17:32 Last Admin: 08/30/25 17:45 Dose: 3 ml Documented By: fátima Albuterol (Albut/Ipratrop 3mg/0.5mg Neb 3 Ml Vial) 3 ml NEB NOW STA; Protocol Stop: 08/30/25 18:26 Last Admin: 08/30/25 19:03 Dose: 3 ml Documented By: fátima Doxycycline Hyclate (Doxycycline Hyclate 100 Mg Cap) 100 mg PO NOW STA Stop: 08/30/25 18:25 Last Admin: 08/30/25 19:03 Dose: 100 mg Documented By: fátima Sodium Chloride (Nss) 1,000 mls @ 125 mls/hr IV .Q8H [place] Stop: 09/02/25 18:14 Last Infusion: 08/30/25 22:02 Dose: Infused Documented By: Infusion: 08/30/25 20:43 Dose: 0 mls/hr Documented By: Admin: 08/30/25 18:24 Dose: 125 mls/hr Documented By: fátima Ceftriaxone Sodium (Rocephin) 2,000 mg in 50 mls @ 100 mls/hr IV NOW STA Stop: 08/30/25 18:53 Last Infusion: 08/30/25 19:46 Dose: Infused Documented By: fátima Admin: 08/30/25 19:04 Dose: 100 mls/hr Documented By: fátima Methylprednisolone 40 mg/ (Syringe) 0.64 mls @ 1.5 mls/min IV NOW ONE Stop: 08/30/25 19:45 Last Admin: 08/30/25 20:40 Dose: 1.5 mls/min Documented By: TIESHA Sodium Chloride (Nss) 1,000 mls @ 999 mls/hr IV .Q1H1M [place] Stop: 08/30/25 20:45 Last Infusion: 08/30/25 20:35 Dose: Infused Documented By: Admin: 08/30/25 20:10 Dose: 999 mls/hr Documented By: DIDIER Magnesium Sulfate/Dextrose (Magnesium Sulfate / D5w) 1 gm in 100 mls @ 50 mls/hr IV ONE ONE Stop: 08/30/25 21:53 Last Infusion: 08/30/25 22:10 Dose: Infused Documented By: Admin: 08/30/25 20:14 Dose: 50 mls/hr Documented By: DIDIER Imaging Data Radiologist's Impression: Chest X-Ray 08/30/25 17:31 EXAM: Radiograph of the Chest 1 View INDICATION: Shortness of breath and chest pain TECHNIQUE: Frontal view of the chest. COMPARISON: No relevant prior studies available. FINDINGS: Lungs and pleural spaces: Prominent pulmonary vasculature right greater than left with patchy airspace disease in both lung bases. No pleural effusion or pneumothorax. Heart: Enlarged shadow. Valve prosthetic noted. Mediastinum: Normal contour. Bones/joints: No fracture, erosion or dislocation. Soft tissues: No abnormality noted. No radiopaque foreign body noted. Upper abdomen: No abnormality noted. IMPRESSION: Pulmonary vascular congestion and patchy basilar infiltrates which could reflect pneumonia. ACT 112: N/A Electronically signed by Lisa Coronel 08-30-2025 7:50 PM Discharge Plan Visit Data Chief Complaint: Illness Stated Complaint: FEVER, HEADACHE, COPD, SX PAST 4-5 DAYS ED Provider: Yelena Malhotra Discharge Problem: Hypoxia, Pneumonia, Acute exacerbation of chronic obstructive pulmonary disease (COPD), Bigeminy, Elevated troponin Patient Disposition: Admitted As Inpatient Condition: Fair Discharge Instructions Interventions: ED Discharge Assessment Last Done: 08/30/25 21:28
[2025-08-30 17:45] LABS: Hematocrit (blood only) 38.7 % (42.0-52.0); Hemoglobin 13.0 g/dl (14.0-18.0); Immature Granulocytes # (auto) 0.09 K/uL (0.01-0.20); Immature Granulocytes % (auto) 0.6 %; Mean Corpuscular Hemoglobin 29.0 pg (25.0-34.0); Mean Corpuscular Volume 86.4 fL (80.0-100.0); Platelet Count 357 K/uL (130-400); RDW Standard Deviation 43.5 fL (36.4-46.3); Red Blood Count 4.48 M/uL (4.70-6.10); White Blood Count 16.20 K/ul (4.8-10.8)
[2025-08-30] MEDS: ALBUT/IPRATROP 3MG/0.5MG NEB 3 ML VIAL NEB STA ×2 (17:45→19:03)
[2025-08-30 18:04] LABS: Alanine Aminotransferase 9.0 U/L (7-52); Albumin Globulin Ratio 0.9 (0.9-2); Albumin Level 3.6 gm/dl (3.4-5.0); Alkaline Phosphatase 71.0 U/L (34-104); Anion Gap 12.0 (3-11); Bilirubin,Total 1.2 mg/dl (0.2-1.0); Blood Urea Nitrogen 29.0 mg/dl (6-23); Calcium 9.5 mg/dl (8.6-10.3); Carbon Dioxide 23.0 mmol/L (21-32); Chloride 100.0 mmol/L (98-107); Creatinine Clr Calc Pharmacy 56.1 ml/min; Globulin 4.2 gm/dl (2.5-4.0); Glucose 109.0 mg/dl (70-99(Fasting)); Potassium 3.9 mmol/L (3.5-5.1); Sodium 135.0 mmol/L (136-145); Total Protein 7.8 gm/dl (6.0-8.3)
[2025-08-30 18:21] LABS: INR 1.2 (0.9-1.1); Prothrombin Time 12.8 Seconds (9.0-12.0)
[2025-08-30] MEDS: SODIUM CHLORIDE 0.9% 1,000 ML IV SCH ×2 (18:24→20:10)
[2025-08-30 18:34] LABS: Chlamydia pneumoniae PCR Not Detected (NotDetected); Coronavirus 229E PCR Not Detected (NotDetected); Coronavirus CoV-2 (COVID19)PCR Not Detected (NotDetected); Coronavirus HKU1 PCR Not Detected (NotDetected); Coronavirus NL63 PCR Not Detected (NotDetected); Coronavirus OC43PCR Not Detected (NotDetected); Human Metapneumovirus PCR Not Detected (NotDetected); Parainfluenza Virus 1 PCR Not Detected (NotDetected); Parainfluenza Virus 2 PCR Not Detected (NotDetected); Parainfluenza Virus 3 PCR Not Detected (NotDetected); Parainfluenza Virus 4 PCR Not Detected (NotDetected); Respiratory Syncytial VirusPCR Not Detected (NotDetected); Rhinovirus/Enterovirus PCR DETECTED (NotDetected)
[2025-08-30 19:00] LABS: Base Excess VBG -0.9 mEq/L; HCO3 VBG 22 mmol/L; Oxygen Saturation VBG 93.1 %; PCO2 VBG 31 mmHg (38-50); PO2 VBG 63 mmHg; pH VBG 7.46 (7.36-7.41)
[2025-08-30] MEDS: DOXYCYCLINE HYCLATE 100 MG CAP PO STA (19:03)
[2025-08-30] MEDS: cefTRIAXone SODIUM 2,000 MG/50 ML BAG IV STA (19:04)
--- NOTE | 2025-08-30 19:44 | History & Physical Report ---
Date of Service August 30, 2025 Assessment & Plan (1) Acute hypoxemic respiratory failure: (2) Acute exacerbation of chronic obstructive pulmonary disease (COPD): (3) Pneumonia: (4) Sepsis: (5) Rhinovirus infection: (6) Demand ischemia: Plan Patient is a 75-year-old male with a past medical history of COPD, CVA, stage IIIa CKD, A-fib on Eliquis, GERD, GI bleed, aortic valve replacement. Patient presented after referral from [facility] due to 3 to 4 days of cough with yell ow sputum production, dyspnea, chest tightness, headache, poor p.o. intake, and feeling feverish. He was found to be hypoxic at 88% on room air, with bilateral lower lobe pneumonia, rhinovirus infection, and suspected COPD exacerbation. He did meet SIRS criteria on arrival. #acute hypoxic respiratory failure/sepsis/pneumonia/rhinovirus infection/COPD exacerbation - CXR with pulmonary vascular congestion and patchy basilar infiltrates which could represent PNA. Pro-Bradley 0.23. 88% on room air, on 2L NC at time of admission. BioFire positive for enterovirus/rhinovirus + SIRS: WBC 16.20, tachycardic (HR 109), febrile at 38.1C on arrival to ED - Sepsis fluid bolus for ideal body weight = 2427 mL - Ordered 1L NSS bolus in the ED in which vital signs improved and lactate returned at 0.9 Will defer complete sepsis fluid bolus given most recent EF 40%, signs of pulmonary vascular congestion on CXR, and perfusing well Continue fluid resuscitation with LR at 125 mL/hour times 2L - continue Rocephin and doxycycline MRSA swab ordered - droplet precautions - follow blood cultures - Solu-Medrol 40 mg IV on admission, continue daily - DuoNeb 4 times daily scheduled and every 2 hours as needed - incentive spirometry - Mucinex BID and Tessalon Perles prn - oxygen prn for O2 goal 88-92%, wean as tolerated - Mag 1.9 - 1 g IV mag ordered, trend labs - trend CBC #elevated troponin trop 26.6 -> 24.1. Patient denies any CP. EKG with accelerated junctional rhythm, frequent PVCs, bigeminy pattern. echocardiogram 11/2024 revealed EF 40%, anterior septum and inferior septum are hypokinetic, basal to mid inferior wall akinetic, moderate LVH, mildly dilated right ventricle, severely dilated left atrium, mildly dilated right atrium, AVR, mild MR. - Suspect 2/2 demand ischemia with above. Repeat EKG in a.m. and with any chest pain as needed - trend Q6hr - replete electrolytes - monitor on tele #A-fibcontinue Eliquis and metoprolol #HTNcontinue metoprolol and lisinopril #Mental healthcontinue sertraline VTE ppx: Continue home Eliquis Dispo: med/tele Admission and Anticipated Discharge Date Admission Date: 08/30/25 History of Present Illness Chief Complaint: illness Primary Care Provider: Megan Adorno Patient is a 75-year-old male with a past medical history of COPD, CVA, stage IIIa CKD, A-fib on Eliquis, GERD, GI bleed. Patient presented after referral from [facility] due to 3 to 4 days of cough with yellow sputum production, dyspnea, chest tightness, headache, poor p.o. intake, and feeling feverish. he was found to be hypoxic at 88% on room air, with bilateral lower lobe pneumonia, rhinovirus infection, and suspected COPD exacerbation. Patient seen at bedside. He endorses the above symptoms. He stated he did feel feverish however did not take his temperature. He denies any dizziness, lightheadedness, stabbing chest pain (feels as though it is more tightness from the COPD exacerbation) nausea, vomiting, diarrhea. He stated he has not eaten or drink much in the past few days due to feeling unwell. He denies any nicotine use. He does not use oxygen at baseline. He is due for his evening medications which include metoprolol and Eliquis. He does feel much better after DuoNeb x 2 in the ED. He wishes to be full code. Allergies Allergy/AdvReac Type Severity Reaction Status Date / Time No Known Drug Allergies Allergy Verified 08/30/25 17:28 Home Medications Medication Instructions Recorded Confirmed Type albuterol sulfate 90 mcg/actuation 2 puff inhalation BID 02/04/20 08/30/25 History aerosol inhaler aspirin 81 mg chewable tablet 81 mg PO QAM 05/05/21 08/30/25 History (Ashley Chewable Low Dose Aspirin) sertraline 50 mg tablet 50 mg PO DAILY 04/27/23 08/30/25 History fluticasone fur. 100 mcg-umeclid 1 inh inhalation DAILY #3 Inhalers 04/09/25 08/30/25 Rx 62.5 mcg-vilant 25 mcg inhalat.powder (Trelegy Ellipta) apixaban 5 mg tablet (Eliquis) 5 mg PO BID 06/05/25 08/30/25 History metoprolol succinate 25 mg 25 mg PO QPM 06/05/25 08/30/25 History tablet,extended release 24 hr nitroglycerin 0.4 mg sublingual 0.4 mg sublingual Q5M PRN Chest 06/05/25 08/30/25 History tablet Pain lisinopril 20 mg tablet 20 mg PO DAILY 08/30/25 08/30/25 History Past Med/Surg History Problem List Demand ischemia Acute hypoxemic respiratory failure Elevated troponin (Acute) Bigeminy (Acute) Acute exacerbation of chronic obstructive pulmonary disease (COPD) (Acute) Pneumonia (Acute) Hypoxia (Acute) Elevated serum creatinine Melena Mass of left side of neck Anxiety AVM (arteriovenous malformation) Afib Fall from standing History of CVA (cerebrovascular accident) CKD stage 3a, GFR 45-59 ml/min COPD (chronic obstructive pulmonary disease) (Acute) TISHA (acute kidney injury) (Acute) Pneumonia (Acute) Coronavirus infection, unspecified (Acute) Sepsis Rhinovirus infection (Acute) Upper GI bleed Vomiting (Acute) Anemia (Acute) COPD exacerbation (Acute) Pneumonia (Acute) SOB (shortness of breath) (Acute) GI bleed (Acute) Right lower lobe pneumonia Wears hearing aid in both ears Phonak L50R disp 02/2023 Does not have health insurance COPD, group B, by GOLD 2017 classification Periorbital ecchymosis of left eye Encounter for pre-operative examination Cholesteatoma of attic of left ear Perforation of left tympanic membrane Mixed hearing loss, bilateral Medical History History of ST elevation myocardial infarction (STEMI) Tubular adenoma of colon History of atrial flutter 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 SNHL, :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 History of tobacco use disorder GERD (gastroesophageal reflux disease) Tinnitus of both ears GI bleed 2019 CAD (coronary artery disease), [place] coronary artery stent x1 (2015) COPD (chronic obstructive pulmonary disease) "Controlled" > follows with [facility] in [place] ([phone]) Aortic valve disease s/p AVR- 2018 (echo 10/28/20 with normal appearing bioprosthetic aortic valve and normal transvalvular flow velocities and no AI) History of ME (myocardial infarction) 2016 History of kidney stones CKD (chronic kidney disease) High cholesterol Hypertension Surgical History S/P drug eluting coronary stent placement S/P ascending aortic aneurysm repair S/P AAA repair Hx of detached retina repair History of mastoidectomy Left Tympanomastoidectomy - 05/21/[address] Cisneros History of AAA (abdominal aortic aneurysm) repair 2018 History of esophagogastroduodenoscopy (EGD) History of colonoscopy History of heart artery stent stent x1 (2015) History of cardiac cath S/P AVR (aortic valve replacement) 2018 History of cataract extraction History of cholecystectomy History of oral surgery Removal of impacted teeth History of appendectomy H/O thoracic aortic aneurysm repair Family History Mother Stroke Myocardial infarction Father Bone cancer COPD (chronic obstructive pulmonary disease) Grandmother (Paternal) Stroke Diabetes Other Emphysema lung Lung disease No family history of adverse response to anesthesia No family history of bleeding disorder Social History Smoking Status: Former smoker Tobacco Type: Cigarettes Age Started Using Tobacco: 50; Age Quit Using Tobacco: 65; packs per day: 1; Second Hand Exposure: No; Do You Dip or Chew Tobacco: No; Hx Alcohol Use: No Hx Substance Use: No Preferred Language: Slovenian Communication Ability: Effective Visual Impairment: No Limitations Silver Solution Mixer Required: No Beliefs That Will Affect Care: None marital status: Current Living Situation: Spouse and Family Current Living Situation Comment: With Brother//Family current occupational status: employed current occupation: woodworking Feels Safe at Home: Yes Gender Identity: Male Assistive Devices: Cane and Wheelchair Review of Systems Review of Systems: see HPI Physical Exam Physical Exam: The patient is awake, alert and oriented 3, well developed and well nourished, normocephalic and atraumatic, in no acute distress. Non-toxic appearing. HEENT- EOMI, mucous membranes moist. Hearing grossly intact. Heart-normal S1 and S2. No murmurs, rubs or gallops. Lungs-mild wheezing bilaterally, no respiratory distress, no accessory muscle use. 2L NC. Abdomen-normal bowel sounds and soft. No ascites noted. Non-tender. Extremities- no clubbing, cyanosis, or edema. Rheumatologic-normal range of motion. Psychiatric-normal affect. Results & Data Results & Data Vital Signs (Past 12 Hours) Vital Signs Temp Pulse Pulse Resp BP BP Pulse Ox 08/30/25 19:01 100 H 17 159/84 H 93 08/30/25 18:18 88 L 08/30/25 17:42 96 H 20 151/96 H 90 08/30/25 17:30 98 H 19 151/96 H 91 08/30/25 17:18 100 H 08/30/25 16:48 36.7 C 109 H 17 137/71 91 O2 Del Method O2 Flow Rate 08/30/25 19:01 Nasal Cannula 2 08/30/25 18:18 Room Air 0 08/30/25 17:42 08/30/25 17:30 08/30/25 17:18 08/30/25 16:48 Room Air Laboratory Results reviewed CBC, PT/INR, VBG, CMP, lactate, troponin, magnesium, procalcitonin, BioFire Diagnostic Findings reviewed CXR Medications Administered EDDuoNeb x 2, doxycycline p.o., Rocephin IV ECG Additional Comments: accelerated junctional rhythm with frequent PVCs and pattern of bigeminy Rate 100 QTc 472 Code Status & VTE Plan Code Status full code VTE Prophylaxis Plan VTE Prophylaxis will be ordered: Yes Supervising Physician Co-Signing Physician Notes Patient seen and examined, chart reviewed, case discussed with HANS Barrera and I agree with the assessment and plan as above. In brief, patient is a 75yo male with history of COPD, prior CVA, AF on Eliquis anticoagulation AVR presenting with 3-4 days of cough productive for yellow sputum, fever, hypoxic a t88% on room air. Patient found to have Entero/Rhinovirus infection, bilateral lower lobe infiltrates On exam he is resting comfortably, NAD Skin- no rash HEENT - MMM, Neck supple Heart - +S1/S2, regular, no m/r/g Lungs - coarse breath sounds bilaterally with rhonchi, end expiratory wheezing throughout Abd - soft, NT/ND Ext - no edema Labs and images reviewed Significant for WBC=16.2, Hgb=13, Hct=38.7 INR=1.2 VBG 7.46/31/63 Po=944 BUN=29 Trop=24.1 CXR with pulmonary vascular congestion and patchy basilar infiltrates which could reflect pneumonia Assessment/Plan: Acute hypoxic respiratory failure, COPD exacerbation due to enterovirus infection -Admit to medical with telemetry -Antibiotic coverage with Ceftriaxone and Doxycycline -Nebs QID and PRN -Fluticasone inhaled daily -Guaifenesin -Solumedrol 40mg IV BID -Remainder as above PG Care Time/CCT Total # of Minutes Spent Total Time Spent with Patient: Total time spent is greater than 50% in coordination of care (as documented) at patient's floor/unit and/or counseling patient: Coding Level of Care Code 45723 INT INP/OBS CARE 375MIN Diagnoses Acute hypoxemic respiratory failure J96.01 Acute exacerbation of chronic obstructive pulmonary disease (COPD) J44.1 Pneumonia J18.9 Sepsis A41.9 Rhinovirus infection B34.8 Demand ischemia I24.89
[2025-08-30 19:48] LABS: Magnesium 1.9 mg/dl (1.7-2.4)
--- NOTE | 2025-08-30 19:52 | XRay Report ---
EXAM: Radiograph of the Chest 1 View INDICATION: Shortness of breath and chest pain TECHNIQUE: Frontal view of the chest. COMPARISON: No relevant prior studies available. FINDINGS: Lungs and pleural spaces: Prominent pulmonary vasculature right greater than left with patchy airspace disease in both lung bases. No pleural effusion or pneumothorax. Heart: Enlarged shadow. Valve prosthetic noted. Mediastinum: Normal contour. Bones/joints: No fracture, erosion or dislocation. Soft tissues: No abnormality noted. No radiopaque foreign body noted. Upper abdomen: No abnormality noted. IMPRESSION: Pulmonary vascular congestion and patchy basilar infiltrates which could reflect pneumonia. ACT 112: N/A Electronically signed by Lisa Coronel 08-30-2025 7:50 PM
[2025-08-30] MEDS: MAGNESIUM SULFATE / D5W 1 GM/100 ML BAG IV ONE (20:14)
[2025-08-30] MEDS: LACTATED RINGER'S 1,000 ML IV SCH (20:40)
[2025-08-30] MEDS: ACETAMINOPHEN 500 MG TAB PO STA (21:01)
[2025-08-30] MEDS ORDERED: MELATONIN 3 MG TAB PO PRN (22:01)
[2025-08-30] MEDS ORDERED: ALBUT/IPRATROP 3MG/0.5MG NEB 3 ML VIAL NEB PRN (22:01)
[2025-08-30] MEDS ORDERED: DOCUSATE SODIUM 100 MG CAP PO PRN (22:01)
[2025-08-30] MEDS ORDERED: ONDANSETRON INJ 2 MG/ML 2 ML VIAL IV PRN (22:01)
[2025-08-30] MEDS ORDERED: BENZONATATE 100 MG CAPSULE PO PRN (22:01)
[2025-08-30] MEDS: ALBUT/IPRATROP 3MG/0.5MG NEB 3 ML VIAL NEB SCH (22:25)
[2025-08-30] MEDS: ALBUTEROL HFA 8 GM INHALER INH SCH (22:25)
[2025-08-30] MEDS: APIXABAN 5 MG TABLET PO SCH (22:50)
[2025-08-30] MEDS: METOPROLOL SUCC 25MG EXT REL TAB PO SCH (22:50)
[2025-08-30] MEDS: guaiFENesin 600 MG TABCR PO SCH (22:50)
[2025-08-31 02:04] LABS: Hematocrit (blood only) 34.2 % (42.0-52.0); Hemoglobin 11.4 g/dl (14.0-18.0); Mean Corpuscular Hemoglobin 29.3 pg (25.0-34.0); Mean Corpuscular Volume 87.9 fL (80.0-100.0); Platelet Count 271 K/uL (130-400); RDW Standard Deviation 44.2 fL (36.4-46.3); Red Blood Count 3.89 M/uL (4.70-6.10); White Blood Count 13.91 K/ul (4.8-10.8)
[2025-08-31 02:23] LABS: Alanine Aminotransferase 7.0 U/L (7-52); Albumin Globulin Ratio 0.8 (0.9-2); Albumin Level 3.0 gm/dl (3.4-5.0); Alkaline Phosphatase 56.0 U/L (34-104); Anion Gap 9.0 (3-11); Bilirubin,Total 0.5 mg/dl (0.2-1.0); Blood Urea Nitrogen 32.0 mg/dl (6-23); Calcium 8.5 mg/dl (8.6-10.3); Carbon Dioxide 24.0 mmol/L (21-32); Chloride 103.0 mmol/L (98-107); Creatinine Clr Calc Pharmacy 54.3 ml/min; Globulin 3.6 gm/dl (2.5-4.0); Glucose 216.0 mg/dl (70-99(Fasting)); Magnesium 2.2 mg/dl (1.7-2.4); Potassium 3.9 mmol/L (3.5-5.1); Sodium 136.0 mmol/L (136-145); Total Protein 6.6 gm/dl (6.0-8.3)
[2025-08-31 02:28] LABS: Immature Granulocytes # (auto) 0.10 K/uL (0.01-0.20); Immature Granulocytes % (auto) 0.7 %; Polychromasia 1+
[2025-08-31] MEDS: DOXYCYCLINE HYCLATE 100 MG in DEXTROSE 5% MINI-B 100 ML IV SCH (06:33)
[2025-08-31] MEDS: SERTRALINE HCL 50 MG TABLET PO SCH (08:04)
[2025-08-31] MEDS: ASPIRIN 81 MG ECTAB PO SCH (08:04)
[2025-08-31] MEDS: FLUTICASONE FUROATE 100MCG 14 PUFFS/INHALER INH SCH (08:05)
[2025-08-31] MEDS: UMECLIDINIUM/VILANTEROL 62.5/25MCG 7 PUFFS/INHALER INH SCH (08:05)
--- NOTE | 2025-08-31 10:47 | Hospitalist Progress Note ---
Date of Service August 31, 2025 Assessment & Plan (1) Pneumonia: (2) Acute exacerbation of chronic obstructive pulmonary disease (COPD): Plan Patient is a 75 year old male who presented into the hospital via referral from [facility]. 3-4 day cough w/ yellow sputum, dyspnea, chest tightness, headache, poor oral intake, and feeling feverish. Acute hypoxic respiratory failure/sepsis/pneumonia/rhinovirus infection/COPD exacerbation - CXR with pulmonary vascular congestion and patchy basilar infiltrates which could represent PNA. Pro-Bradley 0.23. 88% on room air, on 2L NC at time of admission. BioFire positive for enterovirus/rhinovirus + SIRS: WBC 16.20, tachycardic (HR 109), febrile at 38.1C on arrival to ED. (08/31) WBC trended downward to 13.91. 02 is also 95% at 2L/min, Temperature WNL. - Sepsis fluid bolus for ideal body weight = 2427 mL at admit. - Ordered 1L NSS bolus in the ED in which vital signs improved and lactate returned at 0.9 Will defer complete sepsis fluid bolus given most recent EF 40%, signs of pulmonary vascular congestion on CXR, and perfusing well Continue fluid resuscitation with LR at 125 mL/hour - continue Rocephin and doxycycline MRSA swab ordered. MRSA came back neg. - droplet precautions - follow blood cultures - Solu-Medrol 40 mg IV on admission, continue daily - DuoNeb 4 times daily scheduled when admitted now its as needed - incentive spirometry - Mucinex BID and Tessalon Perles prn - oxygen prn for O2 goal 88-92%, wean as tolerated - Mag 1.9 - 1 g IV mag ordered, trend labs - CBC w/ diff and BMP in the AM Elevated Troponins -Troponin was 24.1 on 08/30. This AM was 14.6. Troponin has peaked and trended downwards. Will not order another troponin. -ECG this morning appeared to show 1st AV block with PACs. A-fibcontinue Eliquis and metoprolol HTNcontinue metoprolol and lisinopril Mental healthcontinue sertraline Admission and Anticipated Discharge Date Admission Date: August 30, 2025 Supervising Physician Co-Signing Physician Notes I personally examined the patient and verified all suazo points of history and exam, discussed case, and agree with decision making with Dr Burgos Tried to see twice. The first time whenever in the room and introduced myself he asked questions. As I was starting to answer with him, his phone ranghe answered, and proceeded to have a long conversation, ceasing to make any eye contact with me, and having no tone of voice or body language like he was going to end the call anytime soon. After standing at his side for quite a while, I informed him I would andreafski back later. Whenever I andreafski back later, he was in bed sound asleep. Vitals noted, in general he was sitting up and in no acute distress. He was still on 2 L of nasal cannula. Breathing unlabored. I had not yet listened to his lungs, see above. No focal neurodeficits. Labs and diagnostics noted. Community-acquired pneumonia with subsequent COPD exacerbation and acute hypoxic respiratory failurecontinue current care. Seems to be improving based on how he looked before. Hopefully can wean oxygen and get him home soon. Otherwise as above. Subjective Patient is a pleasant 75 year old male who presented to the hospital via referral from [facility] for 3-4 day cough w/ yellow sputum, dyspnea, chest tightness, headache, poor oral intake, and feeling feverish. Patient is resting comfortably this AM and having normal respiratory effort and his shortness of breath has gotten better. He reports he has an appetite and had dinner last night. Denies N/V, and chest pain. He does not smoke nor uses O2 at home. Review of Systems Review of Systems: as per subjective HPI Physical Exam Constitutional: WD/WN, vitals as above Eyes: + anicteric sclerae and EOM intact bilat erally Neck: normal visual inspection Respiratory: normal respiratory effort; no respiratory distress difficulty auscultating lung sounds Cardiovascular: difficulty auscultating heart sounds. Skin: no rashes, warm and dry Psychiatric: Eye Contact: good eye contact Speech: normal rate/rhythm/vol ume of speech Thought Process: goal directed thought process and linear/logical thought process Results & Data Results & Data Vital Signs (Past 12 Hours) Vital Signs Temp Pulse Resp BP BP Pulse Ox O2 Del Method 08/31/25 07:30 71 16 96 Nasal Cannula 08/31/25 07:13 36.5 C 63 18 155/76 H 97 Nasal Cannula 08/31/25 03:08 36.4 C L 79 18 152/82 H 95 Nasal Cannula O2 Flow Rate 08/31/25 07:30 2 08/31/25 07:13 2 08/31/25 03:08 2 Laboratory Results Lab Results 08/30/25 08/30/25 08/30/25 Range/Units 17:19 17:41 18:48 WBC 16.20 H (4.8-10.8) K/ul RBC 4.48 L (4.70-6.10) M/uL Hgb 13.0 L (14.0-18.0) g/dl Hct 38.7 L (42.0-52.0) % MCV 86.4 (80.0-100.0) fL MCH 29.0 (25.0-34.0) pg MCHC 33.6 (32.0-36.0) g/dL RDW Std Deviation 43.5 (36.4-46.3) fL RDW Coeff of Tristen 13.7 (11.5-14.5) % Plt Count 357 (130-400) K/uL MPV 11.3 (9.4-12.4) fL Immature Gran % (Auto) 0.6 % Neut % (Auto) 81.1 % Lymph % (Auto) 6.4 % Humphreys % (Auto) 11.0 % Eos % (Auto) 0.4 % Baso % (Auto) 0.5 % Neut # (Auto) 13.14 H (1.40-6.50) K/uL Lymph # (Auto) 1.04 L (1.20-3.40) K/uL Humphreys # (Auto) 1.79 H (0.11-0.59) K/uL Eos # (Auto) 0.06 (0.00-0.50) K/uL Baso # (Auto) 0.08 (0.00-0.20) K/uL Immature Gran # (Auto) 0.09 (0.01-0.20) K/uL Polychromasia PT 12.8 H (9.0-12.0) Seconds INR 1.2 H (0.9-1.1) VBG pH 7.46 H (7.36-7.41) VBG pCO2 31 L (38-50) mmHg VBG pO2 63 mmHg VBG HCO3 22 mmol/L VBG O2 Saturation 93.1 % VBG Base Excess -0.9 mEq/L Sodium 135 L (136-145) mmol/L Potassium 3.9 (3.5-5.1) mmol/L Chloride 100 (98-107) mmol/L Carbon Dioxide 23 (21-32) mmol/L Anion Gap 12 H (3-11) BUN 29 H (6-23) mg/dl Creatinine 1.21 (0.6-1.4) mg/dl Est Cr Clr Drug Dosing 56.1 ml/min eGFR 61.67 BUN/Creatinine Ratio 24.0 H (10-20) Glucose 109 H (70-99(Fasting)) mg/dl Lactate (0.4-2.0) mmol/L Calcium 9.5 (8.6-10.3) mg/dl Magnesium 1.9 (1.7-2.4) mg/dl Total Bilirubin 1.2 H (0.2-1.0) mg/dl AST 13 (13-39) U/L ALT 9 (7-52) U/L Alkaline Phosphatase 71 (34-104) U/L Troponin I High Sens 26.8 H (0-20) pg/ml Total Protein 7.8 (6.0-8.3) gm/dl Albumin 3.6 (3.4-5.0) gm/dl Globulin 4.2 H (2.5-4.0) gm/dl Albumin/Globulin Ratio 0.9 (0.9-2) Procalcitonin 0.23 (0-0.5) ng/ml Nasal Screen MRSA (PCR) (Negative) Adenovirus (PCR) Not Detected (NotDetected) B. pertussis DNA (PCR) Not Detected (NotDetected) B.parapertussis DNA PCR Not Detected (NotDetected) C. pneumoniae DNA (PCR) Not Detected (NotDetected) Coronavirus OC43 (PCR) Not Detected (NotDetected) Coronavirus HKU1 (PCR) Not Detected (NotDetected) Coronavirus 229E (PCR) Not Detected (NotDetected) SARS-CoV-2 (PCR) Not Detected (NotDetected) Coronavirus NL63 (PCR) Not Detected (NotDetected) Human Metapneumovir PCR Not Detected (NotDetected) Influenza Type A (PCR) Not Detected (NotDetected) Influenza Type B (PCR) Not Detected (NotDetected) M. pneumoniae (PCR) Not Detected (NotDetected) Parainfluenza 1 (PCR) Not Detected (NotDetected) Parainfluenza 2 (PCR) Not Detected (NotDetected) Parainfluenza 3 (PCR) Not Detected (NotDetected) Parainfluenza 4 (PCR) Not Detected (NotDetected) RSV (PCR) Not Detected (NotDetected) Entero/Rhino (PCR) DETECTED A (NotDetected) 08/30/25 08/30/25 08/31/25 Range/Units 20:41 21:24 01:20 WBC (4.8-10.8) K/ul RBC (4.70-6.10) M/uL Hgb (14.0-18.0) g/dl Hct (42.0-52.0) % MCV (80.0-100.0) fL MCH (25.0-34.0) pg MCHC (32.0-36.0) g/dL RDW Std Deviation (36.4-46.3) fL RDW Coeff of Tristen (11.5-14.5) % Plt Count (130-400) K/uL MPV (9.4-12.4) fL Immature Gran % (Auto) % Neut % (Auto) % Lymph % (Auto) % Humphreys % (Auto) % Eos % (Auto) % Baso % (Auto) % Neut # (Auto) (1.40-6.50) K/uL Lymph # (Auto) (1.20-3.40) K/uL Humphreys # (Auto) (0.11-0.59) K/uL Eos # (Auto) (0.00-0.50) K/uL Baso # (Auto) (0.00-0.20) K/uL Immature Gran # (Auto) (0.01-0.20) K/uL Polychromasia PT (9.0-12.0) Seconds INR (0.9-1.1) VBG pH (7.36-7.41) VBG pCO2 (38-50) mmHg VBG pO2 mmHg VBG HCO3 mmol/L VBG O2 Saturation % VBG Base Excess mEq/L Sodium (136-145) mmol/L Potassium (3.5-5.1) mmol/L Chloride (98-107) mmol/L Carbon Dioxide (21-32) mmol/L Anion Gap (3-11) BUN (6-23) mg/dl Creatinine (0.6-1.4) mg/dl Est Cr Clr Drug Dosing ml/min eGFR BUN/Creatinine Ratio (10-20) Glucose (70-99(Fasting)) mg/dl Lactate 0.9 (0.4-2.0) mmol/L Calcium (8.6-10.3) mg/dl Magnesium (1.7-2.4) mg/dl Total Bilirubin (0.2-1.0) mg/dl AST (13-39) U/L ALT (7-52) U/L Alkaline Phosphatase (34-104) U/L Troponin I High Sens 24.1 H (0-20) pg/ml Total Protein (6.0-8.3) gm/dl Albumin (3.4-5.0) gm/dl Globulin (2.5-4.0) gm/dl Albumin/Globulin Ratio (0.9-2) Procalcitonin (0-0.5) ng/ml Nasal Screen MRSA (PCR) Negative (Negative) Adenovirus (PCR) (NotDetected) B. pertussis DNA (PCR) (NotDetected) B.parapertussis DNA PCR (NotDetected) C. pneumoniae DNA (PCR) (NotDetected) Coronavirus OC43 (PCR) (NotDetected) Coronavirus HKU1 (PCR) (NotDetected) Coronavirus 229E (PCR) (NotDetected) SARS-CoV-2 (PCR) (NotDetected) Coronavirus NL63 (PCR) (NotDetected) Human Metapneumovir PCR (NotDetected) Influenza Type A (PCR) (NotDetected) Influenza Type B (PCR) (NotDetected) M. pneumoniae (PCR) (NotDetected) Parainfluenza 1 (PCR) (NotDetected) Parainfluenza 2 (PCR) (NotDetected) Parainfluenza 3 (PCR) (NotDetected) Parainfluenza 4 (PCR) (NotDetected) RSV (PCR) (NotDetected) Entero/Rhino (PCR) (NotDetected) 08/31/25 08/31/25 Range/Units 01:49 08:06 WBC 13.91 H (4.8-10.8) K/ul RBC 3.89 L (4.70-6.10) M/uL Hgb 11.4 L (14.0-18.0) g/dl Hct 34.2 L (42.0-52.0) % MCV 87.9 (80.0-100.0) fL MCH 29.3 (25.0-34.0) pg MCHC 33.3 (32.0-36.0) g/dL RDW Std Deviation 44.2 (36.4-46.3) fL RDW Coeff of Tristen 13.8 (11.5-14.5) % Plt Count 271 (130-400) K/uL MPV 11.4 (9.4-12.4) fL Immature Gran % (Auto) 0.7 % Neut % (Auto) 91.9 % Lymph % (Auto) 3.3 % Humphreys % (Auto) 3.8 % Eos % (Auto) 0.0 % Baso % (Auto) 0.3 % Neut # (Auto) 12.78 H (1.40-6.50) K/uL Lymph # (Auto) 0.46 L (1.20-3.40) K/uL Humphreys # (Auto) 0.53 (0.11-0.59) K/uL Eos # (Auto) 0.00 (0.00-0.50) K/uL Baso # (Auto) 0.04 (0.00-0.20) K/uL Immature Gran # (Auto) 0.10 (0.01-0.20) K/uL Polychromasia 1+ PT (9.0-12.0) Seconds INR (0.9-1.1) VBG pH (7.36-7.41) VBG pCO2 (38-50) mmHg VBG pO2 mmHg VBG HCO3 mmol/L VBG O2 Saturation % VBG Base Excess mEq/L Sodium 136 (136-145) mmol/L Potassium 3.9 (3.5-5.1) mmol/L Chloride 103 (98-107) mmol/L Carbon Dioxide 24 (21-32) mmol/L Anion Gap 9 (3-11) BUN 32 H (6-23) mg/dl Creatinine 1.25 (0.6-1.4) mg/dl Est Cr Clr Drug Dosing 54.3 ml/min eGFR 59.31 BUN/Creatinine Ratio 25.6 H (10-20) Glucose 216 H (70-99(Fasting)) mg/dl Lactate (0.4-2.0) mmol/L Calcium 8.5 L (8.6-10.3) mg/dl Magnesium 2.2 (1.7-2.4) mg/dl Total Bilirubin 0.5 D (0.2-1.0) mg/dl AST 10 L (13-39) U/L ALT 7 (7-52) U/L Alkaline Phosphatase 56 (34-104) U/L Troponin I High Sens 20.0 D 14.6 D (0-20) pg/ml Total Protein 6.6 (6.0-8.3) gm/dl Albumin 3.0 L (3.4-5.0) gm/dl Globulin 3.6 (2.5-4.0) gm/dl Albumin/Globulin Ratio 0.8 L (0.9-2) Procalcitonin (0-0.5) ng/ml Nasal Screen MRSA (PCR) (Negative) Adenovirus (PCR) (NotDetected) B. pertussis DNA (PCR) (NotDetected) B.parapertussis DNA PCR (NotDetected) C. pneumoniae DNA (PCR) (NotDetected) Coronavirus OC43 (PCR) (NotDetected) Coronavirus HKU1 (PCR) (NotDetected) Coronavirus 229E (PCR) (NotDetected) SARS-CoV-2 (PCR) (NotDetected) Coronavirus NL63 (PCR) (NotDetected) Human Metapneumovir PCR (NotDetected) Influenza Type A (PCR) (NotDetected) Influenza Type B (PCR) (NotDetected) M. pneumoniae (PCR) (NotDetected) Parainfluenza 1 (PCR) (NotDetected) Parainfluenza 2 (PCR) (NotDetected) Parainfluenza 3 (PCR) (NotDetected) Parainfluenza 4 (PCR) (NotDetected) RSV (PCR) (NotDetected) Entero/Rhino (PCR) (NotDetected) Diagnostic Findings Chest X-Ray 08/30/25 17:31 EXAM: Radiograph of the Chest 1 View INDICATION: Shortness of breath and chest pain TECHNIQUE: Frontal view of the chest. COMPARISON: No relevant prior studies available. FINDINGS: Lungs and pleural spaces: Prominent pulmonary vasculature right greater than left with patchy airspace disease in both lung bases. No pleural effusion or pneumothorax. Heart: Enlarged shadow. Valve prosthetic noted. Mediastinum: Normal contour. Bones/joints: No fracture, erosion or dislocation. Soft tissues: No abnormality noted. No radiopaque foreign body noted. Upper abdomen: No abnormality noted. IMPRESSION: Pulmonary vascular congestion and patchy basilar infiltrates which could reflect pneumonia. ACT 112: N/A Electronically signed by Lisa Coronel 08-30-2025 7:50 PM
[2025-08-31] MEDS: cefTRIAXone SODIUM 2,000 MG/50 ML BAG IV SCH (17:42)
--- NOTE | 2025-08-31 18:42 | Billing Data ---
Date of Service August 31, 2025 Coding Level of Care Code 14492 SUB INP/OBS CARE
[2025-09-01] MEDS: ACETAMINOPHEN 325 MG TAB PO PRN (06:07)
[2025-09-01 07:01] LABS: Hematocrit (blood only) 30.8 % (42.0-52.0); Hemoglobin 10.5 g/dl (14.0-18.0); Immature Granulocytes # (auto) 0.13 K/uL (0.01-0.20); Immature Granulocytes % (auto) 0.8 %; Mean Corpuscular Hemoglobin 29.4 pg (25.0-34.0); Mean Corpuscular Volume 86.3 fL (80.0-100.0); Platelet Count 313 K/uL (130-400); RDW Standard Deviation 42.5 fL (36.4-46.3); Red Blood Count 3.57 M/uL (4.70-6.10); White Blood Count 16.00 K/ul (4.8-10.8)
[2025-09-01 07:16] LABS: Anion Gap 8.0 (3-11); Blood Urea Nitrogen 39.0 mg/dl (6-23); Calcium 8.9 mg/dl (8.6-10.3); Carbon Dioxide 23.0 mmol/L (21-32); Chloride 106.0 mmol/L (98-107); Creatinine Clr Calc Pharmacy 67.2 ml/min; Glucose 130.0 mg/dl (70-99(Fasting)); Potassium 4.2 mmol/L (3.5-5.1); Sodium 137.0 mmol/L (136-145)
[2025-09-01 07:37] VITALS: RESP 16
[2025-09-01 08:17] VITALS: TEMP 97.5
[2025-09-01] MEDS: ALBUT/IPRATROP 3MG/0.5MG NEB 3 ML VIAL NEB SCH (10:48)
[2025-09-01 11:28] VITALS: PULSE 71; O2SAT 92
[2025-09-01 12:12] VITALS: BP 155/76
--- NOTE | 2025-09-01 13:10 | Discharge Summary ---
Date of Service September 01, 2025 Admission HPI Per Admitting Provider Patient is a 75-year-old male with a past medical history of COPD, CVA, stage IIIa CKD, A-fib on Eliquis, GERD, GI bleed. Patient presented after referral from the medical center due to 3 to 4 days of cough with yellow sputum production, dyspnea, chest tightness, headache, poor p.o. intake, and feeling feverish. he was found to be hypoxic at 88% on room air, with bilateral lower lobe pneumonia, rhinovirus infection, and suspected COPD exacerbation. Patient seen at bedside. He endorses the above symptoms. He stated he did feel feverish however did not take his temperature. He denies any dizziness, lightheadedness, stabbing chest pain (feels as though it is more tightness from the COPD exacerbation) nausea, vomiting, diarrhea. He stated he has not eaten or drink much in the past few days due to feeling unwell. He denies any nicotine use. He does not use oxygen at baseline. He is due for his evening medications which include metoprolol and Eliquis. He does feel much better after DuoNeb x 2 in the ED. He wishes to be full code. Admission Exam Per Admitting Provider The patient is awake, alert and oriented 3, well developed and well nourished, normocephalic and atraumatic, in no acute distress. Non-toxic appearing. HEENT- EOMI, mucous membranes moist. Hearing grossly intact. Heart-normal S1 and S2. No murmurs, rubs or gallops. Lungs-mild wheezing bilaterally, no respiratory distress, no accessory muscle use. 2L NC. Abdomen-normal bowel sounds and soft. No ascites noted. Non-tender. Extremities- no clubbing, cyanosis, or edema. Rheumatologic-normal range of motion. Psychiatric-normal affect. Principal Diagnosis COPD exacerbation rhinovirus Discharge Exam Constitutional WD/WN, vitals as above Respiratory normal respiratory effort; no respiratory distress and no labored breathing Auscultation: + wheezes (expiratory wheezes with adequate air movement BL) Cardiovascular RRR, no murmur, no edema Gastrointestinal (Abdomen) normal bowel sounds, soft, nontender, no hepatosplenomegaly Skin no rashes, warm and dry Neurologic no focal neurological deficits Psychiatric A+Ox3, euthymic affect Discharge Data Allergies Allergy/AdvReac Type Severity Reaction Status Date / Time No Known Drug Allergies Allergy Verified 08/30/25 17:28 Consultations 08/30/25 19:26 ED Decision to Admit Stat Hospital Course (1) Pneumonia: (2) Acute exacerbation of chronic obstructive pulmonary disease (COPD): Plan Patient is a 75 year old male who presented into the hospital via referral from the medical center. 3-4 day cough w/ yellow sputum, dyspnea, chest tightness, headache, poor oral intake, and feeling feverish. Acute hypoxic respiratory failure/sepsis/pneumonia/rhinovirus infection/COPD exacerbation - CXR with pulmonary vascular congestion and patchy basilar infiltrates which could represent PNA. Pro-Bradley 0.23. 88% on room air, on 2L NC at time of admission. BioFire positive for enterovirus/rhinovirus + SIRS: WBC 16.20, tachycardic (HR 109), febrile at 38.1C on arrival to ED. (08/31) WBC trended downward to 13.91. 02 is also 95% at 2L/min, Temperature WNL. - Sepsis fluid bolus for ideal body weight = 2427 mL at admit. MRSA swab negative. Blood cultures w/o growth in 24 hours. Final report still pending. Prelim respiratory cultures with light normal lacey. - during admission, patient was managed with IV fluids and antibiotic therapy. Solu-Medrol 40 mg IV on admission and were continued throughout admission. - on discharge, continue prednisone 40mg daily for 5 days. Will also continue antibiotics with oral doxycycline 100 mg BID for 7 days. - continue symptom management with mucinex BID and tessalon perles prn. - patient saturating well on RA. No need for home O2 after discharge. Continue incentive spirometry. Elevated Troponins -Troponin was 24.1 on 08/30. This AM was 14.6. Troponin has peaked and trended downwards, likely demand-mediated. Has been without chest pain during admission. Telemetry without actionable events, showing 1st AV block with HR 70s. A-fibcontinue Eliquis and metoprolol HTNcontinue metoprolol and lisinopril Mental healthcontinue sertraline Total Time Total Time Spent Total Time Spent (In Minutes): Malik Rasheed DO, attending physician, spent 25 minutes myself seeing the patient, reviewing the chart, and documenting today. Discharge Plan Discharge Items Patient Disposition: Home - Self-Care Reason For Visit: HYPOXIA, PNEUMONIA, RHINOVIRUS, COPD EXACERBATION, Discharge Diagnosis: acute hypoxic respiratory failure pneumonia COPD exacerbation rhinovirus infection Condition on Discharge: Fair Activity: Per Instructions section Non-emergency contact: Primary Care Provider Call non-emergency contact if: you have any medication questions, your symptoms worsen and you have a fever Follow-up/Referrals: Megan Adorno [Primary Care Provider] - (Please call your primary care provider to schedule a hospital follow-up appointment within 7-10 days) Diet: Regular Addtl Attending Provider Instructions: You were admitted to [facility] for a COPD exacerbation and rhinovirus infection. Chest x-ray imaging showed evidence of possible pneumonia. Your cardiac markers were also slightly elevated on admission, however cardiac monitoring and repeat labs showed resolution and you remained asymptomatic during admission. EKG was without ischemic changes. During admission you were treated with steroids and antibiotics. On discharge, please continue: - albuterol 2 puffs twice a daily - Anoro Ellipta daily each morning These medications will be sent to your pharmacy: - doxycycline 100mg twice daily for 7 days - prednisone 40mg once daily for 5 days Please follow-up with your PCP within one week of discharge. Pending Studies at Discharge: No Stand-Alone Forms: [facility], Smoking Cessation Medications and DC Order Prescriptions: New prednisone 20 mg tablet 40 mg PO DAILY 5 Days Qty: 10 0RF Rx Instructions: days 11-21 of therapy doxycycline hyclate 100 mg capsule 100 mg PO BID 7 Days Qty: 14 0RF Continued Trelegy Ellipta 100-62.5-25 mcg blister with device 1 inh inhalation DAILY Qty: 3 3RF sertraline 50 mg tablet 50 mg PO DAILY nitroglycerin 0.4 mg tablet, sublingual 0.4 mg sublingual Q5M PRN (Reason: Chest Pain) Rx Instructions: do not exceed 3 doses per episode Eliquis 5 mg tablet 5 mg PO BID Hold Instructions: Until your PCP re-checks your hemoglobin in about a week albuterol sulfate 90 mcg/actuation Hfa Aerosol Inhaler 2 puff INHALATION BID metoprolol succinate 25 mg tablet extended release 24 hr 25 mg PO QPM aspirin [Ashley Chewable Aspirin] 81 mg Tablet,Chewable 81 mg PO QAM Hold Instructions: Hold until your PCP re-checks your hemoglobin in about a week. lisinopril 20 mg tablet 20 mg PO DAILY Discharge Orders: Discharge Order (Routine); Ordered 09/01/25 Ordered By: Rosie Medina/Other Patient Handouts: Preventing Pneumonia, COPD Controlled Breathing Dc Admission Data Admit Date/Time: 08/30/25 19:53 Attending Provider: Malik Hercules Admit Provider: Darlin Malloy Primary Care Provider: Megan Adorno Other Providers: Darlin Malloy Other Interventions: Discharge Summary Assessment (RN) Last Done: 09/01/25 12:11 Supervising Physician Co-Signing Physician Notes I also saw the patient confirmed suazo portions of the clinical history and the physical examination. I agree the impression and plan as outlined in the resident discharge summary above. Patient notes that he is feeling just about his baseline. He is off of supplemental oxygen. He is ambulating about the room, using the restroom and attending to ADLs without any dyspnea. Upon exam, good air exchange. End expiratory wheezing is appreciated; I suspect this may be his baseline. He feels comfortable with discharge, and he meets usual criteria for such. Will send home on oral prednisone as well as completion of course of doxycycline. Resume his home inhalers; emphasized increased use of albuterol for the next couple of days. Follow-up with PCP early next week. Resident Activity Tracking Resident Involvement: Resident Care Provided Care Provided: Adult Hospital Medicine
[2025-09-01] MEDS: INFLUENZA VACC TS2025-26(65y+)/PF (IIV3) 0.5mL Syr IM ONE (14:22)
[2025-09-01] MEDS: PNEUMOCOCCAL VACCINE (PCV20) 20-VAL CONJ-DIP CRM/PF 0.5 ML SYR IM ONE (14:24)
--- NOTE | 2025-09-02 10:30 | Electrocardiogram Report ---
Test Reason : Blood Pressure : */* mmHG Vent. Rate : 100 BPM Atrial Rate : * BPM P-R Int : * ms QRS Dur : 110 ms QT Int : 366 ms P-R-T Axes : * -27 63 degrees QTcB Int : 472 ms Sinus rhythm with 1st degree A-V block with frequent Premature ventricular complexes in a pattern of bigeminy Minimal voltage criteria for LVH, may be normal variant ( [place] product ) Possible Inferior infarct , age undetermined Abnormal ECG When compared with ECG of 23-Dec-2024 11:27, Ventricular bigeminy is now present Confirmed by Gal Fermin ([id number]) on 09/02/2025 10:29:37 AM Referred By: REFERRED SELF Confirmed By: Gal Fermin
== END 2025-09-01 15:00 | disposition home or self-care (01) | DRG 871 ==
LOC: ED 16:44 → SUATTDRO 19:53 → 2W 19:53